=== PATIENT | male | born 1945 | race Caucasian/White ===

== ENCOUNTER → 2020-10-21 09:56 | Outpatient (REF) | payer MEDICARE, SELFPAY ==
--- NOTE | 2020-10-21 | NM_ITS ---
EXAMINATION: NM BONE SCAN OF THE WHOLE BODY CLINICAL INFORMATION: Prostate cancer. COMPARISON: Bone scan 03/22/2020 and 07/28/2019. TECHNIQUE: Multiple gamma scintillation camera images of the whole body were performed 3 hours following the intravenous administration of 28 mCi Tc-99m MDP. FINDINGS: In the head, no significant abnormality seen. In the thoracic cage and upper extremities, there is mild increased activity seen in bilateral AC joints, glenohumeral joints and right sternoclavicular joints likely related to arthritic changes. Mild faint focal activity seen in the left posterior 7th through 10th ribs similar to previous study, likely old fractures. Also visualized are mild faint areas of focal activity in the left anterior 7th through 9th ribs likely old healed fracture. In the spine, no significant abnormality seen. In the pelvis, there is mild focal increased activity in the right anterior superior iliac spine which has decreased comparing to previous study. There is nonspecific activity below the left pelvis which could be artifact from urine extravasation or isotope in the diaper. This was not seen on last bone scan but seen on earlier bone scan from 07/28/2019 In the lower extremities, no abnormal activity seen. No other definite bony abnormalities are noted. The urinary bladder and faint visualization of both kidneys are noted. GA/GA bone scan whole body IMPRESSION: There is mild increased activity at the sternoclavicular and bilateral hip joints and some of the ribs as described above stable compared to previous study, 03/22/2020. The rib lesions are likely old fractures. Mild activity seen in the right anterior iliac spine but decreased since the last study. This was reported metastatic lesion on the previous exam. There are no new areas of isotope activity to suspect any metastatic lesions.
== END ==
LOC: HO.NUCMED 09:56
PROVIDERS: Visit Provider Internal Medicine Medical Oncology
DX: C61 Malignant neoplasm of prostate (principal)
CPT/HCPCS: 78306; A9503

== ENCOUNTER → 2020-12-08 09:24 | Outpatient (BNVA) | payer MEDICARE, SELFPAY | PROVIDERS: PCP Internal Medicine; Visit Provider Urology | DX: C61 Malignant neoplasm of prostate (principal); N39.41 Urge incontinence | CPT/HCPCS: 96402; 99212; J9217 ==

== ENCOUNTER → 2021-06-01 08:31 | Outpatient (BNVA) | payer MEDICARE, SELFPAY | PROVIDERS: PCP Internal Medicine; Visit Provider Urology | DX: M85.80 Other specified disorders of bone density and structure, unspecified site (principal); C61 Malignant neoplasm of prostate; R97.21 Rising PSA following treatment for malignant neoplasm of prostate | CPT/HCPCS: 96402; 99212; J9217 ==

== ENCOUNTER → 2021-10-23 09:52 | Outpatient (REF) | payer MEDICARE, SELFPAY ==
--- NOTE | ~2021-10-23 | NM_ITS ---
EXAMINATION: NM BONE SCAN OF THE WHOLE BODY CLINICAL INFORMATION: Prostate cancer. History of prostatectomy. COMPARISON: Bone scan 10/21/2020. TECHNIQUE: Multiple gamma scintillation camera images of the whole body were performed 3 hours following the intravenous administration of 26 mCi Tc-99m MDP. FINDINGS: In the head, no abnormal activity seen. In the thoracic cage and upper extremities, mild increased activity seen in right acromion process and bilateral glenohumeral joints. Activity seen in the right acromion is new and intense compared to last study. No abnormal activity seen in the spine. Previously seen faint bone marrow activity left 7th, 8th and 9th posterior ribs is again visualized consistent with old fractures. There is mild right sternoclavicular joint activity also. In the pelvis, mild increased activity seen in the right anterior superior iliac spine improved since previous study. No additional areas of metabolic activity. In the lower extremities, no abnormal metabolic activity seen. No other definite bony abnormalities are noted. The urinary bladder and faint visualization of both kidneys are noted. NM/IA bone scan whole body IMPRESSION: Moderate intense activity seen in the right acromion process new since the previous study. There are mild arthritic changes right sternoclavicular joint and bilateral AC joints. Mild increased activity seen in the posterior left lower ribs. Mild increase activity in the right anterior superior iliac spine has slightly decreased since the last study. There are no new areas of abnormal activity.
== END ==
LOC: HO.NUCMED 09:52
PROVIDERS: PCP Internal Medicine; Visit Provider Internal Medicine Medical Oncology
DX: C61 Malignant neoplasm of prostate (principal)
CPT/HCPCS: 78306; A9503

== ENCOUNTER → 2021-11-29 09:36 | Outpatient (BNVA) | payer MEDICARE, SELFPAY | PROVIDERS: PCP Internal Medicine; Visit Provider Urology | DX: R97.21 Rising PSA following treatment for malignant neoplasm of prostate (principal); C61 Malignant neoplasm of prostate; M85.80 Other specified disorders of bone density and structure, unspecified site | CPT/HCPCS: 96402; 99212; J9217 ==

== ENCOUNTER 2022-02-28 15:42 | Outpatient (REF) | payer MEDICARE, SELFPAY ==
--- NOTE | ~2022-02-28 | XR_ITS ---
EXAMINATION: XR LUMBOSACRAL SPINE WITH OBLIQUES CLINICAL INFORMATION: Lumbar strain COMPARISON: None TECHNIQUE: AP, both oblique, and lateral views of the lumbar spine. Lateral view of the lumbosacral junction. FINDINGS: Postoperative changes observed in the pelvis. Atherosclerotic changes of the abdominal aorta and common iliac arteries noted. No appreciable spondylolysis. There is a wedge compression deformity at L4. Eccentric degenerative disc space narrowing noted L5-S1. Facet arthrosis observed. XR/XR lumbar spine 4V min IMPRESSION: Wedge compression deformity at L4. Finding could be acute however the age is not completely certain. If there is further clinical concern, MR examination of lumbar spine may be helpful toward further clarification. Mild eccentric degenerative disc space narrowing L5-S1.
== END 2022-02-28 15:43 | disposition home or self-care (01) ==
LOC: HO.HMGCX 15:42
PROVIDERS: PCP Internal Medicine; Visit Provider Physician Assistant
DX: S39.012A Strain of muscle, fascia and tendon of lower back, initial encounter (principal); X58.XXXA Exposure to other specified factors, initial encounter; Y93.9 Activity, unspecified; Y92.9 Unspecified place or not applicable; Y99.9 Unspecified external cause status
CPT/HCPCS: 72110

== ENCOUNTER → 2022-04-17 10:57 | Outpatient (REF) | payer MEDICARE, SELFPAY ==
--- NOTE | ~2022-04-17 | NM_ITS ---
EXAMINATION: NM BONE SCAN OF THE WHOLE BODY CLINICAL INFORMATION: Prostate cancer. History of prostatectomy. COMPARISON: Whole-body bone scan done on 10/23/2021. TECHNIQUE: Multiple gamma scintillation camera images of the whole body were performed 3.25 hours following the intravenous administration of 25 mCi Tc-99m MDP. FINDINGS: In the head, no focal abnormal increased activity is present. In the thoracic cage and upper extremities, previously documented asymmetric abnormal increased radiotracer activity involving the distal half of the right clavicle appears improved. Currently bilateral near symmetric increased radiotracer activities are present around both shoulder. Interval development of focal abnormal increased radiotracer activities are noted along the costovertebral junctions of the right-sided ninth and 10th ribs. In the spine, interval development of moderately intense abnormal linear increased radiotracer activity is present at L4 vertebral body, highly suspicious for metastatic disease. No other additional site of disease is identified. In the pelvis, asymmetric abnormal increased radiotracer activity is present involving the right anterior iliac crest, shows increased radiotracer activity as compared to the prior study dated 10/23/2021. Evidence of urinary contamination is noted around the penile urethra. In the lower extremities, no focal suspicious lesion. No other definite bony abnormalities are noted. The urinary bladder and faint visualization of both kidneys are noted. NM/NM bone scan whole body IMPRESSION: 1. Interval development of moderately intense linear abnormal increased radiotracer activity is noted at L4 vertebral body, highly suspicious for metastatic disease, new since 10/23/2021. 2. Interval development of focal abnormal increased radiotracer activities are also noted along the costovertebral junctions of the right-sided ninth and 10th ribs, may represent posttraumatic changes. 3. Previously documented abnormal increased radiotracer activity involving the right iliac crest persists, shows increased radiotracer activity, when compared to prior study dated 10/23/2021. 4. Abnormal linear increased radiotracer activity involving the outer half of the right clavicle appears improved since the prior study dated 10/23/2021. 5. No other significant interval change. 6. Follow-up F-18 PSMA/Gallium-[address] scan, may be considered for further full detail evaluation, if clinically appropriate.
== END ==
LOC: HO.NUCMED 10:57
PROVIDERS: PCP Internal Medicine; Visit Provider Internal Medicine Medical Oncology
DX: C61 Malignant neoplasm of prostate (principal)
CPT/HCPCS: 78306; A9503

== ENCOUNTER → 2022-06-07 10:04 | Outpatient (BNVA) | payer MEDICARE, SELFPAY | PROVIDERS: PCP Internal Medicine; Visit Provider Urology | DX: C61 Malignant neoplasm of prostate (principal); C79.51 Secondary malignant neoplasm of bone; R97.21 Rising PSA following treatment for malignant neoplasm of prostate; M85.80 Other specified disorders of bone density and structure, unspecified site | CPT/HCPCS: 96372; 96402; 99212; J0897; J9217 ==

== ENCOUNTER → 2022-11-19 10:53 | Outpatient (REF) | payer MEDICARE, SELFPAY ==
--- NOTE | ~2022-11-19 | NM_ITS ---
EXAMINATION: NM BONE SCAN OF THE WHOLE BODY CLINICAL INFORMATION: Prostate cancer, elevated PSA. COMPARISON: Several prior bone scans are available for comparison, the most recent dated 04/17/2022. No recent radiographs are available for comparison. TECHNIQUE: Multiple gamma scintillation camera images of the whole body were performed 2.5 hours following the intravenous administration of 27 mCi Tc-99m MDP. FINDINGS: In the head, no definite abnormalities are present. In the thoracic cage and upper extremities, there is mildly increased activity in the left acromioclavicular joint. There is a small mild focus of increased activity in the anterolateral aspect of the right second rib and a few scattered left-sided rib lesions are present. There is a focus of mildly increased activity in the mid lateral aspect of the right scapula. In the spine, there is minimally increased activity in the left side of L4. In the pelvis, there is intense abnormally increased activity which is somewhat heterogeneous in the right iliac wing, involving almost the entirety of this bone. There is an additional small focus of moderately increased activity present in the left anterior iliac crest. Some mild abnormality inferior to the prominent iliac bone abnormality in the right hemipelvis is present involving the acetabulum and right ischium, but this is much less intense than the iliac bone abnormalities. In the lower extremities, there is a small mild focus of increased activity in the lateral proximal aspect of the right foot. No other definite bony abnormalities are noted. The urinary bladder and faint visualization of both kidneys are noted. A duplicated right renal collecting system is present. Compared to the 04/17/2022 prior bone scan abnormalities in the right iliac bone are much more intense and more extensive on the current study in the anterior left iliac bone abnormality is new. All of the rib abnormalities in the right scapular abnormality are new. Abnormalities at the costovertebral junctions of T9 and T10 on 04/17/2022 have resolved and the intensity of activity in the L4 vertebra has decreased. Radiographs of the lumbar spine dated 02/28/2022, prior to the prior bone scan showed a compression deformity at L4. NM/NM bone scan whole body IMPRESSION: 1. Metastatic tumor involvement of bone with extensive abnormalities present in the right hemipelvis as well as new abnormalities in the left iliac bone and right scapula. 2. Multiple rib abnormalities are present, particularly on the left and while metastatic disease at these sites cannot be entirely ruled out because adjacent regions of adjacent ribs are involved these may represent healing rib fractures. An abnormality in the right second rib is more suspicious for a metastasis, however. These could be further characterized with plain radiographs of the ribs, if clinically indicated.
== END ==
LOC: HO.NUCMED 10:53
PROVIDERS: Visit Provider Internal Medicine Medical Oncology
DX: C61 Malignant neoplasm of prostate (principal)
CPT/HCPCS: 78306; A9503

== ENCOUNTER → 2022-12-11 11:24 | Outpatient (BNVA) | payer MEDICARE, SELFPAY | PROVIDERS: PCP Internal Medicine; Visit Provider Urology | DX: C61 Malignant neoplasm of prostate (principal); C79.51 Secondary malignant neoplasm of bone; R97.21 Rising PSA following treatment for malignant neoplasm of prostate; M85.80 Other specified disorders of bone density and structure, unspecified site; Z79.620 Long term (current) use of immunosuppressive biologic | CPT/HCPCS: 96372; 96402; 99212; J0897; J9217 ==

== ENCOUNTER → 2023-02-26 10:34 | Outpatient (REF) | payer MEDICARE, SELFPAY ==
--- NOTE | ~2023-02-26 | NM_ITS ---
EXAMINATION: NM BONE SCAN OF THE WHOLE BODY CLINICAL INFORMATION: Prostate cancer. COMPARISON: The previous bone scan dated 11/19/2022 is available for comparison. TECHNIQUE: Multiple gamma scintillation camera images of the whole body were performed 3.25 hours following the intravenous administration of 25 mCi Tc-99m MDP. FINDINGS: In the head, no significant abnormalities are present. In the thoracic cage and upper extremities, multiple foci of mildly to moderately increased activity are present in the ribs. There is also focus of moderately increased activity in the mid lateral aspect of the right scapula and in the inferior aspect of the sternum. Although multiple rib abnormalities are present, the most intense is in the anterolateral aspect of the left fifth rib. In the spine, several foci of mildly to moderately increased activity are present in the spine, most prominently in the right side of T12, the inferior endplate of L2 in the midline and in the right side of L5 extending into the right posterior elements. In the pelvis, there is intense abnormally increased activity present throughout the right iliac bone extending into the acetabulum and the superior aspect of the right ischium. Additional abnormalities which are intense are present in the left anterior iliac crest as well as mild abnormalities in the superior and inferior aspects of the left acetabulum. In the lower extremities, there is subtle diffusely increased activity in the proximal two thirds of both femurs which is fairly homogeneous but much less intense than the other abnormalities described above. No other definite bony abnormalities are noted. The urinary bladder and faint visualization of both kidneys are noted. Since the prior bone scan dated 11/19/2022, multiple new lesions are present in the ribs and spine and a few mild abnormalities present on the previous study have all increased in intensity, particularly in the pelvis and right scapula. NM/NM bone scan whole body IMPRESSION: Metastatic tumor involvement of bone with a significant progression in the bone scan appearance since 11/19/2022.
== END ==
LOC: HO.NUCMED 10:34
PROVIDERS: Visit Provider Internal Medicine Medical Oncology
DX: C61 Malignant neoplasm of prostate (principal)
CPT/HCPCS: 78306; A9503

== ENCOUNTER 2023-03-03 12:33 | Inpatient (IN) | payer MEDICARE, SELFPAY ==
--- NOTE | ~2023-03-03 | MR_ITS ---
EXAMINATION: MR LUMBAR SPINE WITHOUT AND WITH CONTRAST CLINICAL INFORMATION: Bilateral leg weakness. Prostate cancer. COMPARISON: Bone scan dated 02/26/2023 was reviewed. Lumbar spine radiographs dated 02/28/2022 was reviewed. TECHNIQUE: MRI of the lumbar spine was obtained using routine sequences with and without contrast. Intravenous contrast: Magnevist 7.5 mL FINDINGS: Spinal alignment is anatomic in the sagittal projection. The superior endplate of the L4 vertebral body is moderately depressed. This superior endplate deformity was present on the 02/28/2022 lumbar spine radiographs but appears to have progressed slightly. Mild increased T2 signal within the posterior aspect of the superior endplate suggesting more acute component to this endplate deformity. There is no retropulsion of bone into the spinal canal. Remaining lumbar vertebral bodies demonstrate preserved stature. There is mild compression deformity of the anterior aspect of the inferior endplate of the T12 vertebral body. There are enhancing metastasis within the T11 vertebral body, T12 vertebral body, L1 vertebral body, L2 vertebral body, L3 vertebral body, and L5 vertebral body. There are enhancing metastasis within the posterior elements at the L5 level on the right. There are enhancing metastasis throughout the sacrum. The visualized spinal cord is normal in caliber and signal intensity. The cauda equina nerve roots are intrinsically normal in appearance. The conus medullaris is unremarkable. The paraspinal soft tissue is grossly normal in appearance. There are multiple right renal cysts. The urinary bladder is distended. Evaluation of the individual disc space levels is as follows: T12-L1: There is no disc herniation. The spinal canal and neural foramina are patent. L1-L2: There is no disc herniation. The spinal canal and neural foramina are widely patent. There is mild facet arthropathy. L2-L3: There is a shallow circumferential disc bulge. There is mild facet arthropathy. There is no spinal canal or foraminal stenosis. L3-L4: There is a moderate size circumferential disc herniation which is slightly eccentric towards the right side. There is facet arthropathy. Disc herniation results in flattening of the ventral thecal sac and narrowing of the subarticular recesses, greater on the right. The spinal canal remains patent. There is moderate narrowing of the right neural foramen without nerve root impingement and mild narrowing of the left neural foramen. L4-L5: There is a shallow circumferential disc bulge. There is facet arthropathy. There is no spinal canal or foraminal stenosis. L5-S1: There is a shallow circumferential disc bulge. There is facet arthropathy. No spinal canal stenosis. The right neural foramen is mildly narrowed. There is minimal narrowing of the left neural foramen. There is no nerve root impingement. MR/MR lumbar spine wo/w con IMPRESSION: - The superior endplate of the L4 vertebral body is moderately depressed. This superior endplate deformity was present on the 02/28/2022 lumbar spine radiographs but appears to have progressed slightly. Mild increased T2 signal within the posterior aspect of the superior endplate suggesting more acute component to this endplate deformity. There is no retropulsion of bone into the spinal canal. - There is mild compression deformity of the anterior aspect of the inferior endplate of the T12 vertebral body. - There are enhancing metastasis within the T11 vertebral body, T12 vertebral body, L1 vertebral body, L2 vertebral body, L3 vertebral body, and L5 vertebral body. There are enhancing metastasis within the posterior elements at the L5 level on the right. There are enhancing metastasis throughout the sacrum. -There is mild to moderate lumbar spondylosis. There is no compromise of the spinal canal. There is mild to moderate multilevel foraminal narrowing without nerve root impingement.
--- NOTE | ~2023-03-03 | CT_ITS ---
EXAMINATION: CT ABDOMEN AND PELVIS WITHOUT CONTRAST CLINICAL INFORMATION: Gram-negative bacteremia. Question source. COMPARISON: Previous CT of the abdomen from 2007 and ultrasound from 2019. Bone scan, pelvis and lumbar spine x-ray and lumbar spine MRI February 2023 TECHNIQUE: Multidetector volumetric imaging was performed from the superior aspect of the liver through the pubic symphysis. Sagittal and coronal reformatted images were obtained on the technologist's workstation. This CT examination was performed using dose optimization techniques as appropriate, variously including the following: *Automated exposure control *Adjustment of mA and/or kV according to patient size (this includes techniques or standardized protocols for targeted exams where dose is matched to indication/reason for exam; i.e. extremities or head) *Use of iterative reconstruction technique DLP: 532 mGy-cm FINDINGS: LUNG BASES: Increased peripheral reticular markings suggestive of interstitial lung disease. Upper normal heart size. Coronary artery calcification. Trace pericardial fluid or thickening. LIVER, GALLBLADDER, AND BILIARY TREE: The liver is upper normal in size right lobe measuring 18 cm. There is a subcentimeter low-attenuation lesion in the peripheral lateral segment of the left lobe probably representing a cyst axial image 25 series 3. No other focal liver lesion. The gallbladder is unremarkable with no evidence of radiopaque gallstones, gallbladder wall thickening, or obvious pericholecystic inflammatory changes. PANCREAS: Unremarkable. SPLEEN: Upper normal-size spleen measuring 12.6 cm. ADRENAL GLANDS: Unremarkable. KIDNEYS AND URETERS: Duplicated bilateral renal collecting systems. Left renal cortical thinning or scarring. Small bilateral renal stones. 1.5 cm low-attenuation lesion in the lower pole of the right kidney probably representing a cyst. No hydronephrosis, ureteral dilatation or ureteral stone. BLADDER: Penile implant and right pelvic reservoir. This causes mass effect on the bladder. Scott catheter in the bladder. GASTROINTESTINAL TRACT: There is large amount of stool in the colon suggestive of constipation. There is diverticulosis of the colon. No evidence of diverticulitis. Small and large bowel is otherwise normal. The appendix is normal. The stomach is normal. ABDOMINAL WALL: No significant hernia is appreciated. LYMPH NODES: Surgical clips in the pelvis suggestive of previous lymph node dissection. Small retroperitoneal lymph nodes in the abdomen. No enlarged lymph nodes. No ascites. VASCULAR: Severe atherosclerotic disease. No aneurysm. PELVIC VISCERA: The prostate gland has been removed. OSSEOUS STRUCTURES: Increased sclerosis the iliac bones, right greater than left suggestive of metastatic disease. Heterogeneous attenuation with areas of lucency and increased sclerosis in the right acetabulum also suggestive of metastatic disease. Old left rib fractures. Recent appearing L4 vertebral body compression fracture. Mild old compression fractures versus Schmorl's nodes in the superior endplate of the T11 inferior endplate of the T12 vertebral bodies. CT/CT abdomen pelvis wo IV con IMPRESSION: Constipation. Severe diverticulosis. No evidence of diverticulitis. Duplicated bilateral renal collecting systems. Small bilateral renal stones. Cortical thinning or scarring of the left kidney. Post prostatectomy. Penile implant. Metastatic disease to the bones. Fleischner guidelines were followed.
--- NOTE | ~2023-03-03 | XR_ITS ---
EXAMINATION: XR PELVIS CLINICAL INFORMATION: Evaluate penile implant for MRI. COMPARISON: Lumbar spine x-rays of 02/28/2022. Selected images of the CT abdomen and pelvis of 02/18/2007. TECHNIQUE: AP view of the pelvis. FINDINGS: Multiple surgical clips in the pelvis bilaterally are redemonstrated. Penile implants are in place with a small metallic likely connecting device noted projecting over the right side of the penis/scrotum. No evidence of acute osseous abnormality. No definite evidence of suspicious lytic or blastic lesion in the visualized osseous structures. Symphysis pubis is intact. Limited evaluation of the visualized sacroiliac joints is unremarkable. Bilateral hip joints are intact. Mild degenerative changes at the hip joints. As per radiologic technologist she found the report that stated it is a AMS 3 piece inflatable implant. After discussion with the radiologic technologist a decision was made to proceed with the requested lumbar spine MRI examination after detailed discussion with the patient. Patient was explained to notify the radiologic technologist immediately if he feels heat sensation or discomfort in the region.
[2023-03-03 12:45] VITALS: BP 142/79; BP 148/90; PULSE 100; PULSE 99; RESP 20; TEMP 36.6; O2SAT 97; O2SAT 99; BMI 22.2
[2023-03-03 13:52] LABS: MANUAL DIFF FLAG NO
[2023-03-03 13:53] LABS: Basophils Absolute Auto 0.1 X10*3/uL (0.0-0.2); Basophils Percent Auto 0.7 % (0-2); Eosinophils Absolute Auto 0.3 X10*3/uL (0.0-0.4); Hematocrit 33.7 % (42.0-52.0); Hemoglobin 11.3 g/dl (14.0-18.0); Imm Gran Abs Auto 0.11 X10*3/uL (0.00-0.03); Imm Gran Pct Auto 1.5 % (0.0-0.4); Lymphocytes Absolute Auto 0.6 X10*3/uL (1.2-4.9); Lymphocytes Percent Auto 8.1 % (20-40); Mean Corpuscular HGB Conc 33.5 g/dl (31.0-36.0); Mean Corpuscular Hemoglobin 30.7 pg (27.0-33.0); Mean Corpuscular Volume 91.6 fL (80.0-98.0); Mean Platelet Volume 8.9 fL (9.4-12.4); Monocytes Absolute Auto 0.3 X10*3/uL (0.1-1.2); Monocytes Percent Auto 4.4 % (2-11); Neutrophils Absolute Auto 6.1 x10*3/uL (2.0-8.3); Neutrophils Percent Auto 81.3 % (45-73); Platelet Count 197 X10*3/uL (160-400); Red Blood Count 3.68 X10*6/uL (4.60-5.80); Red Cell Distribution Width 18.2 % (11.0-16.0); White Blood Count 7.5 X10*3/uL (4.8-10.8)
[2023-03-03 13:58] LABS: INTERNATIONAL NORM RATIO 1.4 (0.9-1.1); Prothrombin Time 15.8 SEC (10.0-13.1)
[2023-03-03 14:07] LABS: Alanine Aminotransferase 80 U/L (0-40); Albumin Level 3.3 g/dL (3.5-5.0); Alkaline Phosphatase 178 U/L (39-117); Anion Gap 12 (12-20); Aspartate Amino Transferase 118 U/L (5-37); Bilirubin Total 1.9 mg/dL (0.0-1.0); Blood Urea Nitrogen 23 mg/dL (9-16); Calcium 9.5 mg/dL (8.4-10.2); Carbon Dioxide 25 mmol/L (22-29); Chloride 107 mmol/L (96-108); Creatinine Clr Calc Pharmacy 38.6; Estimated Glomerular Filt Rate 39; Glucose Random 287 mg/dL (60-115); Potassium 3.8 mmol/L (3.3-5.1); Sodium 140 mmol/L (135-145); Total Protein 5.8 g/dL (6.5-8.0)
[2023-03-03 14:48] LABS: Appearance Urine Cloudy; Color Urine Yellow; Glucose Urine UA 500 mg/dL (Negative); Leukocyte Esterase Urine Trace (Negative); Nitrite Urine Positive (Negative); PH 5.5 (5.0-9.0); Specific Gravity - Urine 1.015 (1.005-1.025); UMIC TRIGGER UACC YES; Urine Blood Large (3+) (Negative); Urine Ketones Negative (Negative); Urine Protein 100 (2+) mg/dL (Neg-Trace)
[2023-03-03 14:55] VITALS: BP 128/74; PULSE 109; RESP 20; TEMP 36.6; O2SAT 96
[2023-03-03 15:02] LABS: Bacteria Urine 1+ (None Seen); Hyaline Casts Urine 0-2 /LPF (0-2); RBC Urine >20 /HPF (0-2); Squamous Epithelial Cell Urine 0-2 /HPF (0-2); UACC Culture Trigger YES; WBC Urine 0-5 /HPF (0-5)
[2023-03-03] MEDS: 0.9 % Sodium Chloride 500 ML 999 ML IV (15:02)
[2023-03-03 15:14] LABS: Glucose, Whole Blood 249 mg/dL (60-115)
--- NOTE | 2023-03-03 15:22 | ED_ITS ---
HPI - Weakness General Chief complaint: Weakness Stated complaint: Increased diff ambulating per EMS Time Seen by Provider: 03/03/23 12:49 Source: patient and family () Mode of arrival: EMS History of Present Illness HPI Narrative: This is a 77-year-old male who presents via EMS for progressive weakness in bilateral lower extremities to the point that this morning he had slid himself down the stairs, his states that typically at that point she is able to get him standing up and then put him in a dining room chair where they push him around. Patient states that over the past few days he has been unable to push himself up from the toilet and he has been unable to stand up from his chair. states that she called EMS and that patient has had a recent bone scan. Patient is currently being followed by Dr. Desouza and has known prostate cancer with metastasis to the bone. Related Data Home Medications Medication Instructions Recorded Confirmed apixaban 5 mg tablet 5 mg PO BID 10/07/20 digoxin 250 mcg (0.25 mg) tablet 250 mcg PO DAILY 10/07/20 enzalutamide 40 mg capsule 160 mg PO DAILY 10/07/20 flu vacc [id number] 6mos up(PF) 60 ml IM 10/07/20 mcg(15 mcgx4)/0.5 mL IM syringe fluticasone propionate 50 spray intranasal 10/07/20 mcg/actuation nasal spray,suspension lisinopril 2.5 mg tablet 2.5 mg PO DAILY 10/07/20 metoprolol tartrate 50 mg tablet mg PO BID 10/07/20 rosuvastatin 40 mg tablet 40 mg PO DAILY 10/07/20 sitagliptin phosphate 25 mg tablet 25 mg PO DAILY 10/07/20 furosemide 40 mg tablet 40 mg PO DAILY 12/08/20 ketorolac 0.5 % eye drops drp ophthalmic (eye) 12/08/20 blood sugar diagnostic (OneTouch #10 ea 06/01/21 Verio test strips) fenofibrate micronized 67 mg 67 mg PO DAILY 06/01/21 capsule apalutamide 60 mg tablet (Erleada) 240 mg PO DAILY 06/07/22 digoxin 125 mcg (0.125 mg) tablet 125 mcg PO DAILY 06/07/22 bicalutamide 50 mg tablet 50 mg PO DAILY 03/21/23 Previous Rx's Medication Instructions Recorded imipramine HCl 10 mg tablet 10 mg PO BID 90 days #180 tabs 12/06/20 cyclobenzaprine 10 mg tablet 10 mg PO BEDTIME PRN muscle spasm 02/28/22 #10 tabs lidocaine 5 % topical patch 1 patch topical DAILY #30 ea 02/28/22 (Lidoderm) finasteride 5 mg tablet 5 mg PO DAILY 90 days #90 tabs 07/26/22 mirabegron 25 mg tablet,extended 25 mg PO DAILY 30 days #30 tabs 12/11/22 release 24 hr Allergies Allergy/AdvReac Type Severity Reaction Status Date / Time bee pollen [BEE STINGS] Allergy Severe ANAPHYLAXIS Verified 12/11/22 11:40 leuprolide [From Lupron] AdvReac Unknown REACTION Verified 12/11/22 11:40 TO BRAND NAME LUPRON, OTHER BRANDS OK bee stings Allergy Unknown anaphylaxis Uncoded 12/11/22 11:40 Review of Systems Review of Systems: Pertinent positives and negatives as stated in [facility] Past Medical History Source: nursing notes reviewed Medical History Elevated PSA Prostate cancer Urgency incontinence Surgical History History of cystoscopy History of prostatectomy Social History Social History Smoked in Last 30 Days: No Use of substances other than those prescribed or required for medical reasons: No Advance Directives: No Advance Directives Information Provided: Yes Physical Exam Vital Signs: Vital Signs: Last Vital Signs Temp 97.8 F 03/03/23 14:55 Pulse 109 H 03/03/23 14:55 Resp 20 03/03/23 14:55 BP 128/74 03/03/23 14:55 Pulse Ox 96 03/03/23 14:55 O2 Del Method Room Air 03/03/23 14:55 BMI result Body Mass Index 22.2 VITAL SIGNS: Reviewed. GENERAL: Chronically ill, cachectic, in no acute distress. HEAD: Normocephalic/atraumatic EYES: PERRLA, EOMI EARS: Ext canals without abnormality NOSE: Nares patent bilateral OROPHARYNX: no oral lesions noted, posterior pharynx clear NECK: Supple, no adenopathy LUNGS: Normal breath sounds. No adventitious sounds or accessory muscle use. SpO2<96> CARDIOVASCULAR: Regular rate and rhythm without noted murmurs, no JVD or lower extremity edema. ABDOMEN: Soft, non-tender, non-distended with bowel sounds. MUSCULOSKELETAL: No tenderness, deformities, or effusions noted on gross inspection. EXTREMITIES: No cyanosis, clubbing or edema. SKIN: Inspection of the skin reveals no rashes NEUROLOGIC: Alert and oriented x 4. Strength and sensation to light touch were grossly intact x 4, but on evaluation patient is able to plantar/dorsiflex again st resistance, however he is significantly weak on hip flexion bilaterally, right is somewhat weaker than the left. Medications Administered Discontinued Medications Generic Name Dose Route Start Last Admin Trade Name Freq PRN Reason Stop Dose Admin Sodium Chloride 500 mls @ 999 mls/hr 03/03/23 14:45 03/03/23 15:02 Ns IV 03/03/23 15:15 999 mls/hr .Q31M ALEJANDRA Administration Ceftriaxone Sodium 1 gm/ 50 mls @ 100 mls/hr 03/03/23 15:06 03/03/23 15:24 Sodium Chloride IV 03/03/23 15:35 100 mls/hr ONCE ONE Administration Medical Decision Making Medical Decision Making [facility] Narrative: 1307: This is a 77-year-old male who on review of his history in combination with most recent bone scan has significant metastatic disease to the bone bilateral iliac crests, bilateral proximal femurs, L-spine. This is consistent with patient's inability to significantly hip flex. He has good plantar/dorsal flexion. 1506: I suspect infection, lactic acid/blood cultures sent, IV fluids provided, antibiotics provided. Patient on review of all investigations also is noted to have an LAURA which is felt to be a combination of poor intake and possible obstructive uropathy. I have discussed with patient at bedside regarding the results of the bone scan and the likelihood that his progressive inability to bear weight is secondary to extensive involvement of bilateral femurs, bilateral iliac crests as well as T12/L2/L5 1545: I am consulting with Dr. Cid and have discussed with the inpatient hospitalist. Differential Diagnosis Please see the discussion above Consult Healthcare Provider Management of the patient was discussed with: Hospitalist and Silhouette Artist Please see the discussion above Lab Data Please see the discussion above 03/03/23 13:48 03/03/23 13:48 Labs: Lab Results 03/03/23 03/03/23 03/03/23 Range/Units 13:48 13:48 13:48 WBC 7.5 (4.8-10.8) X10*3/uL RBC 3.68 L (4.60-5.80) X10*6/uL Hgb 11.3 L (14.0-18.0) g/dl Hct 33.7 L (42.0-52.0) % MCV 91.6 (80.0-98.0) fL MCH 30.7 (27.0-33.0) pg MCHC 33.5 (31.0-36.0) g/dl RDW 18.2 H (11.0-16.0) % Plt Count 197 (160-400) X10*3/uL MPV 8.9 L (9.4-12.4) fL Immature Gran % (Auto) 1.5 H (0.0-0.4) % Neut % (Auto) 81.3 H (45-73) % Lymph % (Auto) 8.1 L (20-40) % [place] % (Auto) 4.4 (2-11) % Eos % (Auto) 4.0 (0-4) % Baso % (Auto) 0.7 (0-2) % Lymph # (Auto) 0.6 L (1.2-4.9) X10*3/uL [place] # (Auto) 0.3 (0.1-1.2) X10*3/uL Eos # (Auto) 0.3 (0.0-0.4) X10*3/uL Baso # (Auto) 0.1 (0.0-0.2) X10*3/uL Abs Immat Gran (auto) 0.11 H (0.00-0.03) X10*3/uL Absolute Neuts (auto) 6.1 (2.0-8.3) x10*3/uL Absolute Nucleated RBC 0.000 (0.0-0.012) X10*3/uL Nucleated RBC % (auto) 0.0 (0.0-0.2) /100WBC PT 15.8 H (10.0-13.1) SEC INR 1.4 H (0.9-1.1) Sodium 140 (135-145) mmol/L Potassium 3.8 (3.3-5.1) mmol/L Chloride 107 (96-108) mmol/L Carbon Dioxide 25 (22-29) mmol/L Anion Gap 12 (12-20) BUN 23 H (9-16) mg/dL Creatinine 1.70 H (0.5-1.4) mg/dL Estim Creat Clear Calc 38.6 Estimated GFR 39 POC Glucose (60-115) mg/dL Random Glucose 287 H (60-115) mg/dL Calcium 9.5 (8.4-10.2) mg/dL Total Bilirubin 1.9 H (0.0-1.0) mg/dL AST 118 H (5-37) U/L ALT 80 H (0-40) U/L Alkaline Phosphatase 178 H (39-117) U/L Total Protein 5.8 L (6.5-8.0) g/dL Albumin 3.3 L (3.5-5.0) g/dL Urine Color Urine Appearance Urine pH (5.0-9.0) Ur Specific [place] (1.005-1.025) Urine Protein (Neg-Trace) mg/dL Urine Glucose (UA) (Negative) mg/dL Urine Ketones (Negative) mg/dL Urine Blood (Negative) Urine Nitrite (Negative) Ur Leukocyte Esterase (Negative) Urine RBC (0-2) /HPF Urine WBC (0-5) /HPF Ur Squamous Epith Cells (0-2) /HPF Urine Bacteria (None Seen) Hyaline Casts (0-2) /LPF 03/03/23 03/03/23 Range/Units 14:38 15:09 WBC (4.8-10.8) X10*3/uL RBC (4.60-5.80) X10*6/uL Hgb (14.0-18.0) g/dl Hct (42.0-52.0) % MCV (80.0-98.0) fL MCH (27.0-33.0) pg MCHC (31.0-36.0) g/dl RDW (11.0-16.0) % Plt Count (160-400) X10*3/uL MPV (9.4-12.4) fL Immature Gran % (Auto) (0.0-0.4) % Neut % (Auto) (45-73) % Lymph % (Auto) (20-40) % [place] % (Auto) (2-11) % Eos % (Auto) (0-4) % Baso % (Auto) (0-2) % Lymph # (Auto) (1.2-4.9) X10*3/uL [place] # (Auto) (0.1-1.2) X10*3/uL Eos # (Auto) (0.0-0.4) X10*3/uL Baso # (Auto) (0.0-0.2) X10*3/uL Abs Immat Gran (auto) (0.00-0.03) X10*3/uL Absolute Neuts (auto) (2.0-8.3) x10*3/uL Absolute Nucleated RBC (0.0-0.012) X10*3/uL Nucleated RBC % (auto) (0.0-0.2) /100WBC PT (10.0-13.1) SEC INR (0.9-1.1) Sodium (135-145) mmol/L Potassium (3.3-5.1) mmol/L Chloride (96-108) mmol/L Carbon Dioxide (22-29) mmol/L Anion Gap (12-20) BUN (9-16) mg/dL Creatinine (0.5-1.4) mg/dL Estim Creat Clear Calc Estimated GFR POC Glucose 249 H (60-115) mg/dL Random Glucose (60-115) mg/dL Calcium (8.4-10.2) mg/dL Total Bilirubin (0.0-1.0) mg/dL AST (5-37) U/L ALT (0-40) U/L Alkaline Phosphatase (39-117) U/L Total Protein (6.5-8.0) g/dL Albumin (3.5-5.0) g/dL Urine Color Yellow Urine Appearance Cloudy Urine pH 5.5 (5.0-9.0) Ur Specific [place] 1.015 (1.005-1.025) Urine Protein 100 (2+) H (Neg-Trace) mg/dL Urine Glucose (UA) 500 H (Negative) mg/dL Urine Ketones Negative (Negative) mg/dL Urine Blood Large (3+) H (Negative) Urine Nitrite Positive H (Negative) Ur Leukocyte Esterase Trace H (Negative) Urine RBC >20 H (0-2) /HPF Urine WBC 0-5 (0-5) /HPF Ur Squamous Epith Cells 0-2 (0-2) /HPF Urine Bacteria 1+ (None Seen) Hyaline Casts 0-2 (0-2) /LPF Radiology Impression Radiologist Impression: I reviewed bone scan from 02/26/2023 External Record Review External record reviewed: Outpatient record and Prior outpatient labs Chronic Conditions Patient?s care impacted by: Diabetes and Hypertension Discharge Plan Discharge Clinical Impression: LAURA (acute kidney injury), Prostate cancer metastatic to bone, Acute UTI, Unable to ambulate Patient Disposition: Admitted As Inpatient Prescriptions: No Action imipramine HCl 10 mg tablet 10 mg PO BID 90 Days Qty: 180 2RF finasteride 5 mg tablet 5 mg PO DAILY 90 Days Qty: 90 2RF Januvia 25 mg tablet 25 mg PO DAILY metoprolol tartrate 50 mg tablet PO BID Rx Instructions: 25mg po bid Eliquis 5 mg tablet 5 mg PO BID lisinopril 2.5 mg tablet 2.5 mg PO DAILY digoxin 250 mcg (0.25 mg) tablet 250 mcg PO DAILY Xtandi 40 mg capsule 160 mg PO DAILY rosuvastatin 40 mg tablet 40 mg PO DAILY Fluzone Quad [id number] (PF) 60 mcg (15 mcg x 4)/0.5 mL syringe IM fluticasone propionate 50 mcg/actuation spray,suspension intranasal lidocaine [Lidoderm] 5 % adhesive patch,medicated 1 patch topical DAILY Qty: 30 0RF Rx Instructions: leave on most painful area for up to 12 hrs cyclobenzaprine 10 mg tablet 10 mg PO BEDTIME PRN (Reason: muscle spasm) Qty: 10 0RF ketorolac 0.5 % drops ophthalmic (eye) furosemide 40 mg tablet 40 mg PO DAILY fenofibrate micronized 67 mg capsule 67 mg PO DAILY (DME) OneTouch Verio test strips Strip See Rx Instructions .ROUTE .MEDSUPPLY Qty: 10 Rx Instructions: As directed bicalutamide 50 mg tablet 50 mg PO DAILY mirabegron 25 mg tablet extended release 24 hr 25 mg PO DAILY 30 Days Qty: 30 1RF Erleada 60 mg tablet 240 mg PO DAILY digoxin 125 mcg (0.125 mg) tablet 125 mcg PO DAILY
[2023-03-03] MEDS: cefTRIAXone sodium 1 GM in 0.9 % Sodium Chloride 50 ML IV (15:24)
[2023-03-03 15:36] LABS: Lactic Acid 1.4 mmol/L (0.5-2.0)
--- NOTE | 2023-03-03 16:42 | PM.IMHP ---
History of Present Illness Date of Service: 03/03/23 Chief Complaint: leg weakness 77M PMH prostace cancer with bone mets, CAD, paroxysmal afib, CKD II, hld, htn, DM, presented with bilateral leg weakness. patient reports progressive bilateral lower extremity weakness over past few weeks day of presentation was worse and unable to get up from chair. also reporting some consitpation, leg numbness, increased back pain. in ED noted to have urinary retention wtih 1200cc on bladder scan, straight cath so far drained >500cc. indwelling was unable to be placed. Review of Systems Review of Systems: Yes all other systems are reviewed and are negative [facility] Medical History Elevated PSA Prostate cancer Urgency incontinence Surgical History History of cystoscopy History of prostatectomy Social History Smoked in Last 30 Days: No Use of substances other than those prescribed or required for medical reasons: No Advance Directives: No Advance Directives Information Provided: Yes Meds Allergies Allergy/AdvReac Type Severity Reaction Status Date / Time bee pollen [BEE STINGS] Allergy Severe ANAPHYLAXIS Verified 12/11/22 11:40 leuprolide [From Lupron] AdvReac Unknown REACTION Verified 12/11/22 11:40 TO BRAND NAME LUPRON, OTHER BRANDS [place] bee stings Allergy Unknown anaphylaxis Uncoded 12/11/22 11:40 Active Medications: Current Medications Dexamethasone Sodium Phosphate (Dexamethasone Sod Phosphate 4 Mg/Ml Vial) 4 mg IVPUSH Q6H ALEJANDRA Glucose (Glucose Gel 15 Gm Gel..Gram.) 15 gm PO Q15M PRN; Protocol PRN Reason: per Hypoglycemia Standing Ord. Ceftriaxone Sodium 1 gm/ (Sodium Chloride) 50 mls @ 100 mls/hr IV Q24H ALEJANDRA Sodium Chloride (Ns) 1,000 mls @ 75 mls/hr IVCONT .[id number] ALEJANDRA Dextrose (D10) 250 mls @ 750 mls/hr IV Q15M PRN; Protocol PRN Reason: per Hypoglycemia Standing Ord. Insulin Human Lispro (Insulin Lispro 100 Unit/Ml 3 Ml Vial) 0 unit SUBCUT QIDACHS ALEJANDRA; Protocol Pharmacy Consult (Consult Rx Perform Med Rec) 1 each MISCELLANE ONCE PRN PRN Reason: Consult order Home Medications Medication Instructions Recorded Confirmed Last Taken Type apixaban 5 mg tablet 5 mg PO BID 10/07/20 Unknown History enzalutamide 40 mg capsule 160 mg PO DAILY 10/07/20 Unknown History metoprolol tartrate 50 mg tablet mg PO BID 10/07/20 Unknown History rosuvastatin 40 mg tablet 40 mg PO DAILY 10/07/20 Unknown History sitagliptin phosphate 25 mg tablet 25 mg PO DAILY 10/07/20 Unknown History blood sugar diagnostic (OneTouch #10 ea 06/01/21 Unknown History Verio test strips) apalutamide 60 mg tablet (Erleada) 240 mg PO DAILY 06/07/22 Unknown History bicalutamide 50 mg tablet 50 mg PO DAILY 12/11/22 Unknown History abiraterone 500 mg tablet PO 03/03/23 Unknown History metformin 850 mg tablet 850 mg PO DAILY 03/03/23 Unknown History oxycodone 5 mg tablet 5 mg PO QID PRN Pain 03/03/23 Unknown History prednisone 5 mg tablet PO 03/03/23 Unknown History Physical Exam Vital Signs and Narrative: Vital Signs: Last Vital Signs Temp 97.8 F 03/03/23 14:55 Pulse 109 H 03/03/23 14:55 Resp 20 03/03/23 14:55 BP 128/74 03/03/23 14:55 Pulse Ox 96 03/03/23 14:55 O2 Del Method Room Air 03/03/23 14:55 BMI result Body Mass Index 22.2 Results Labs 03/03/23 13:48 03/03/23 13:48 Labs: Laboratory Results - last 24 hr 03/03/23 03/03/23 03/03/23 13:48 13:48 13:48 MCV 91.6 MCH 30.7 MCHC 33.5 RDW 18.2 H Plt Count 197 MPV 8.9 L Immature Gran % (Auto) 1.5 H Neut % (Auto) 81.3 H Lymph % (Auto) 8.1 L Rab[place] % (Auto) 4.4 Eos % (Auto) 4.0 Baso % (Auto) 0.7 Lymph # (Auto) 0.6 L [place] # (Auto) 0.3 Eos # (Auto) 0.3 Baso # (Auto) 0.1 Abs Immat Gran (auto) 0.11 H Absolute Neuts (auto) 6.1 Absolute Nucleated RBC 0.000 Nucleated RBC % (auto) 0.0 PT 15.8 H INR 1.4 H Anion Gap 12 Estim Creat Clear Calc 38.6 Estimated GFR 39 POC Glucose Random Glucose 287 H Lactic Acid Calcium 9.5 Total Bilirubin 1.9 H AST 118 H ALT 80 H Alkaline Phosphatase 178 H Total Protein 5.8 L Albumin 3.3 L Urine Color Urine Appearance Urine pH Ur Specific [place] Urine Protein Urine Glucose (UA) Urine Ketones Urine Blood Urine Nitrite Ur Leukocyte Esterase Urine RBC Urine WBC Ur Squamous Epith Cells Urine Bacteria Hyaline Casts 03/03/23 03/03/23 03/03/23 14:38 15:09 15:19 MCV MCH MCHC RDW Plt Count MPV Immature Gran % (Auto) Neut % (Auto) Lymph % (Auto) [place] % (Auto) Eos % (Auto) Baso % (Auto) Lymph # (Auto) [place] # (Auto) Eos # (Auto) Baso # (Auto) Abs Immat Gran (auto) Absolute Neuts (auto) Absolute Nucleated RBC Nucleated RBC % (auto) PT INR Anion Gap Estim Creat Clear Calc Estimated GFR POC Glucose 249 H Random Glucose Lactic Acid 1.4 Calcium Total Bilirubin AST ALT Alkaline Phosphatase Total Protein Albumin Urine Color Yellow Urine Appearance Cloudy Urine pH 5.5 Ur Specific [place] 1.015 Urine Protein 100 (2+) H Urine Glucose (UA) 500 H Urine Ketones Negative Urine Blood Large (3+) H Urine Nitrite Positive H Ur Leukocyte Esterase Trace H Urine RBC >20 H Urine WBC 0-5 Ur Squamous Epith Cells 0-2 Urine Bacteria 1+ Hyaline Casts 0-2 Assessment and Plan (1) LAURA (acute kidney injury): Status: Acute Plan 77M PMH prostace cancer with bone mets, CAD, paroxysmal afib, CKD II, hld, htn, DM, presented with bilateral leg weakness and LAURA bilateral leg weakness, urinary retention concern for cord compression empiric decadron, MRI given prolonged symptoms, doubt acute oncology, eval laura on CKD II due to dehydration and urinary retention gu for relief of osbtruction ivf monitor paroxysmal afib eliquis? metoprolol? DM with hyperglycemia insulin, monitor pocs CAD eliquis, statin dvt prophylaxis - eliquis DNR/DNI unable to verify medrec, will readdress in AM with patient's pharmacy patient with significant weakness, laura, requring further investigations and iv meds as above, therefore, expected to require atleast 2 midnights inpatient Time Spent With Patient Time: Total time managing care of this patient today ____ minutes. Quality Stroke Does the patient have a stroke diagnosis?: No VTE Prior VTE?: No VTE Risk Level:: Medical - moderate - high VTE Device Contraindication: Treatment Not Indicated VTE Drug Contraindication: N/A - Med Ordered
[2023-03-03] MEDS: 0.9 % Sodium Chloride 1,000 ML 75 ML IVCONT (17:00)
[2023-03-03] MEDS: dexAMETHasone sod phosphate 10 MG/ML VIAL IVPUSH (17:03)
[2023-03-03 17:04] VITALS: BP 145/77; PULSE 107; RESP 12; O2SAT 97
[2023-03-03 19:41] LABS: Glucose, Whole Blood 313 mg/dL (60-115)
[2023-03-03] MEDS: Atorvastatin Calcium 40 MG TABLET PO (20:02)
[2023-03-03] MEDS: Insulin Lispro 100 UNIT/ML 3 ML VIAL SUBCUT (20:02)
[2023-03-03] MEDS: Apixaban 5 MG TABLET PO (20:02)
[2023-03-03] MEDS: Metoprolol Tartrate 50 MG TABLET PO (20:02)
[2023-03-03 20:12] VITALS: BMI 18.2
--- NOTE | 2023-03-03 22:31 | MHC.PIE ---
p; pt arrived from ed, bladder scanned for over 1100. pt straigh cathed. note; ed unable to place zapata after multiple attempts. ? keep straight cath till uro am? i; dr salcedo notified - keep straight cath over night e; will cont to monitor
[2023-03-03] MEDS: dexAMETHasone sod phosphate 4 MG/ML VIAL IVPUSH (23:38)
--- NOTE | 2023-03-04 02:15 | PC.NURSE ---
LISA TEXT RECEIVED FROM [facility] AT 0200 THAT BLOOD CULTURES DRAWN ON THIS PATIENT ON 03/03 SHOW PRELIMINARY RESULTS OF GNR OF BOTH SETS ON THE GRAM STAIN, HOSPITALIST ON DUTY ALERTED INFORMED HIM PT ALREADY ON IV ABX AND RESPONDED OK TO MESSAGE AT 0212.
[2023-03-04 03:31] VITALS: BP 137/73; PULSE 82; RESP 16; TEMP 36.1; O2SAT 98
[2023-03-04] MEDS: dexAMETHasone sod phosphate 4 MG/ML VIAL IVPUSH (04:48)
--- NOTE | 2023-03-04 05:26 | PC.NURSE ---
PATIENT FOUND WITH URINARY RETENTION DURING WORK UP IN ED SETTING PRESENTING WITH LEG WEAKNESS. PER ED REPORTS PT RETAINING LARGE AMOUNTS AND STAFF ABLE TO INSERT A STRAIGHT CATHETER WITH URINE RETURN, HOWEVER, AN INDWELLING CATHETER WAS UNSUCCESSFUL. WHEN PATIENT CARED FOR ON FLOOR, S3 RN WAS ABLE TO ST CATH FOR A BLADDER SCAN READING OF 1200ML, UROLOGY WAS NOT PRESENT AND DETERMINED TO LEAVE ST CATH INSERTION PLACED, MONITOR CLOSELY, EMPTY FREQUENTLY NEEDED UNTIL UROLOGIST SEES PT IN AM. SEE DOCUMENTATION. PT TOLERATING WELL, EMPTIED FOR 400ML, THEN 350ML DURING 11-7 TIME AND WILL DO ONE MORE AM EMPTYING. URINE YELLOW, PT WITH NO STATED PAIN OR DISCOMFORTS. WILL CONTINUE TO MONITOR.
[2023-03-04 06:08] LABS: Hematocrit 32.7 % (42.0-52.0); Hemoglobin 10.6 g/dl (14.0-18.0); Mean Corpuscular HGB Conc 32.4 g/dl (31.0-36.0); Mean Corpuscular Hemoglobin 30.4 pg (27.0-33.0); Mean Corpuscular Volume 93.7 fL (80.0-98.0); Mean Platelet Volume 9.4 fL (9.4-12.4); Platelet Count 201 X10*3/uL (160-400); Red Blood Count 3.49 X10*6/uL (4.60-5.80); Red Cell Distribution Width 18.4 % (11.0-16.0); White Blood Count 7.2 X10*3/uL (4.8-10.8)
[2023-03-04] MEDS: 0.9 % Sodium Chloride 1,000 ML 75 ML IVCONT ×2 (06:08→19:38)
--- NOTE | 2023-03-04 06:12 | PC.NURSE ---
ADDITIONAL 50ML EMPTIED FROM ST CATH IN PLACE FOR A SHIFT TOTAL OF 800ML 11-7 TIME, CONTINUES TO TOLERATE WELL.
[2023-03-04 06:34] LABS: Anion Gap 14 (12-20); Blood Urea Nitrogen 28 mg/dL (9-16); Calcium 8.6 mg/dL (8.4-10.2); Carbon Dioxide 21 mmol/L (22-29); Chloride 106 mmol/L (96-108); Creatinine Clr Calc Pharmacy 29.7; Estimated Glomerular Filt Rate 36; Glucose Fasting 449 mg/dL (60-99); Potassium 4.8 mmol/L (3.3-5.1); Sodium 136 mmol/L (135-145)
--- NOTE | 2023-03-04 06:41 | PC.NURSE ---
RECEIVED CALL FROM LAB THIS AM AT 0635, PATIENTS GLUCOSE LEVEL 449, NOTED PT DID HAVE ORANGE JUICE OVER NIGHT, HOSPITALIST ON DUTY INFORMED AND AWAITING IF NEW ORDERS WITH SCHEDULED ISS. WILL ALERT DAY RN ALSO. NO STAUS CHANGES TO PATIENT, ALERT, APPROPRIATE, AND WATCHING TV.
[2023-03-04] MEDS: Insulin Lispro 100 UNIT/ML 3 ML VIAL SUBCUT ×9 (07:25→21:08)
[2023-03-04] MEDS: 0.9 % Sodium Chloride Flush 3 ML SYRINGE IVFLUSH ×2 (07:26→16:00)
[2023-03-04] MEDS: Metoprolol Tartrate 50 MG TABLET PO ×2 (07:26→21:07)
[2023-03-04] MEDS: Apixaban 5 MG TABLET PO ×2 (07:26→21:07)
[2023-03-04 07:28] VITALS: BP 137/68; PULSE 88; RESP 18; TEMP 36; O2SAT 98
--- NOTE | 2023-03-04 08:02 | HO.PM.IMPN ---
Subjective Subjective Date of Service: 03/04/23 Interval History: some improvement in weakness Physical Exam Vital Signs: Vital Signs: Last Vital Signs Temp 96.8 F 03/04/23 07:28 Pulse 88 03/04/23 07:28 Resp 18 03/04/23 07:28 BP 137/68 03/04/23 07:28 Pulse Ox 98 03/04/23 07:28 O2 Del Method Room Air 03/04/23 07:28 BMI result Body Mass Index 18.2 alert oriented times 3, less frail appearing than on admission, but overall ill lower extremity weakness improved Objective Data Active Medications Apixaban (Apixaban 5 Mg Tablet) 5 mg PO BID [facility] Last Admin: 03/04/23 07:26 Dose: 5 mg Documented By: CAYDEN Atorvastatin Calcium (Atorvastatin Calcium 40 Mg Tablet) 40 mg PO BEDTIME [facility] Last Admin: 03/03/23 20:02 Dose: 40 mg Documented By: SHAWNEE Glucose (Glucose Gel 15 Gm Gel..Gram.) 15 gm PO Q15M PRN; Protocol PRN Reason: per Hypoglycemia Standing Ord. Ceftriaxone Sodium 1 gm/ (Sodium Chloride) 50 mls @ 100 mls/hr IV Q24H [facility] Sodium Chloride (Ns) 1,000 mls @ 75 mls/hr IVCONT .[id number] [facility] Last Admin: 03/04/23 06:08 Dose: 75 mls/hr Documented By: HAILE Dextrose (D10) 250 mls @ 750 mls/hr IV Q15M PRN; Protocol PRN Reason: per Hypoglycemia Standing Ord. Insulin Glargine (Insulin Glargine,Hum.Rec.Anlog 100 Unit/Ml 10 Ml Vial) 15 unit SUBCUT DAILY [facility] Insulin Human Lispro (Insulin Lispro 100 Unit/Ml 3 Ml Vial) 0 unit SUBCUT QIDACHS [facility]; Protocol Last Admin: 03/04/23 07:25 Dose: 10 unit Documented By: CAYDEN Insulin Human Lispro (Insulin Lispro 100 Unit/Ml 3 Ml Vial) 5 unit SUBCUT QIDACHS [facility] Last Admin: 03/04/23 07:25 Dose: 5 unit Documented By: CAYDEN Metoprolol Tartrate (Metoprolol Tartrate 50 Mg Tablet) 50 mg PO BID [facility]; Protocol Last Admin: 03/04/23 07:26 Dose: 50 mg Documented By: CAYDEN Pharmacy Consult (Consult Rx Perform Med Rec) 1 each MISCELLANE ONCE PRN PRN Reason: Consult order Sodium Chloride (0.9 % Sodium Chloride Flush 3 Ml Syringe) [facility] Admin: 03/04/23 07:26 Dose: 3 ml Documented By: CAYDEN Labs 03/04/23 05:48 03/04/23 05:48 Labs: Laboratory Results - last 24 hr 03/03/23 03/03/23 03/03/23 13:48 13:48 13:48 MCV 91.6 MCH 30.7 MCHC 33.5 RDW 18.2 H Plt Count 197 MPV 8.9 L Immature Gran % (Auto) 1.5 H Neut % (Auto) 81.3 H Lymph % (Auto) 8.1 L Richardson % (Auto) 4.4 Eos % (Auto) 4.0 Baso % (Auto) 0.7 Lymph # (Auto) 0.6 L Richardson # (Auto) 0.3 Eos # (Auto) 0.3 Baso # (Auto) 0.1 Abs Immat Gran (auto) 0.11 H Absolute Neuts (auto) 6.1 Absolute Nucleated RBC 0.000 Nucleated RBC % (auto) 0.0 PT 15.8 H INR 1.4 H Anion Gap 12 Estim Creat Clear Calc 38.6 Estimated GFR 39 POC Glucose Random Glucose 287 H Fasting Glucose Lactic Acid Calcium 9.5 Total Bilirubin 1.9 H AST 118 H ALT 80 H Alkaline Phosphatase 178 H Total Protein 5.8 L Albumin 3.3 L Urine Color Urine Appearance Urine pH Ur Specific [place] Urine Protein Urine Glucose (UA) Urine Ketones Urine Blood Urine Nitrite Ur Leukocyte Esterase Urine RBC Urine WBC Ur Squamous Epith Cells Urine Bacteria Hyaline Casts 03/03/23 03/03/23 03/03/23 14:38 15:09 15:19 MCV MCH MCHC RDW Plt Count MPV Immature Gran % (Auto) Neut % (Auto) Lymph % (Auto) Richardson % (Auto) Eos % (Auto) Baso % (Auto) Lymph # (Auto) Richardson # (Auto) Eos # (Auto) Baso # (Auto) Abs Immat Gran (auto) Absolute Neuts (auto) Absolute Nucleated RBC Nucleated RBC % (auto) PT INR Anion Gap Estim Creat Clear Calc Estimated GFR POC Glucose 249 H Random Glucose Fasting Glucose Lactic Acid 1.4 Calcium Total Bilirubin AST ALT Alkaline Phosphatase Total Protein Albumin Urine Color Yellow Urine Appearance Cloudy Urine pH 5.5 Ur Specific [place] 1.015 Urine Protein 100 (2+) H Urine Glucose (UA) 500 H Urine Ketones Negative Urine Blood Large (3+) H Urine Nitrite Positive H Ur Leukocyte Esterase Trace H Urine RBC >20 H Urine WBC 0-5 Ur Squamous Epith Cells 0-2 Urine Bacteria 1+ Hyaline Casts 0-2 03/03/23 03/04/23 03/04/23 19:35 05:48 05:48 MCV 93.7 MCH 30.4 MCHC 32.4 RDW 18.4 H Plt Count 201 MPV 9.4 Immature Gran % (Auto) Neut % (Auto) Lymph % (Auto) Richardson % (Auto) Eos % (Auto) Baso % (Auto) Lymph # (Auto) Richardson # (Auto) Eos # (Auto) Baso # (Auto) Abs Immat Gran (auto) Absolute Neuts (auto) Absolute Nucleated RBC 0.000 Nucleated RBC % (auto) 0.0 PT INR Anion Gap 14 Estim Creat Clear Calc 29.7 Estimated GFR 36 POC Glucose 313 H Random Glucose Fasting Glucose 449 H* Lactic Acid Calcium 8.6 D Total Bilirubin AST ALT Alkaline Phosphatase Total Protein Albumin Urine Color Urine Appearance Urine pH Ur Specific [place] Urine Protein Urine Glucose (UA) Urine Ketones Urine Blood Urine Nitrite Ur Leukocyte Esterase Urine RBC Urine WBC Ur Squamous Epith Cells Urine Bacteria Hyaline Casts Microbiology Microbiology Results: Microbiology 03/03/23 15:03 Urine Culture - Preliminary Urine clean catch - Clean Catch Midstream Culture in progress. 03/03/23 15:20 Blood Culture - Preliminary Blood - Venous Prelim: GNR Gram Stain only 03/03/23 15:19 Blood Culture - Preliminary Blood - Venous Prelim: GNR Gram Stain only Assessment and Plan (1) LAURA (acute kidney injury): Status: Acute Plan 77M PMH prostace cancer with bone mets, CAD, paroxysmal afib, CKD II, hld, htn, DM, presented with bilateral leg weakness and LAURA bilateral leg weakness MRI negative for cord compression - will dc steroids PT eval urinary retention complicated by acute pyelonephritis complicated by GNR bacteremia intermittent cath, eval rocephin, follow up cultures will check CT abd - check for hydro, rule out other source of bacteremia laura on CKD II due to dehydration and urinary retention gu eval ivf monitor paroxysmal afib eliquis, metoprolol for now, follow up medlist later today DM with hyperglycemia insulin, monitor pocs CAD eliquis, statin dvt prophylaxis - eliquis DNR/DNI reason for continued hospitalization: bacteremia Time Spent With Patient Time: Total time managing care of this patient today ____ minutes. Quality Stroke Does the patient have a stroke diagnosis?: No VTE Prior VTE?: No VTE Risk Level:: Medical - moderate - high VTE Device Contraindication: Treatment Not Indicated VTE Drug Contraindication: N/A - Med Ordered
--- NOTE | 2023-03-04 09:21 | MHC.CM.PN ---
IMM DELIVERED PT LIVES IN A [facility] WITH SPOUSE. IS ABLE TO AMBULATE SHORT DISTANCE INDEPENDENTLY BUT USES CANE FOR LONGER DISTANCE. +COVID VAX X3 + HCP BUT NOT SURE WHERE IT IS, WILLING TO DO A NEW ONE. PCP DR. GIMENEZ AT [facility]. DP: HOME WITH SERVICES VS SNF (PT IS HESITANT) WILL AWAIT P.T. RECOMMENDATIONS BEFORE DECIDING. SPOUSE VS BLS FOR TRANSPORT.
[2023-03-04] MEDS: Insulin Glargine,Hum.rec.anlog 100 UNIT/ML 10 ML VIAL 15 UNIT SUBCUT (09:28)
--- NOTE | 2023-03-04 11:20 | PHA.MEDREC ---
Addendum entered by [facility] 03/04/23 13:20: Spoke to Dr. Staley again who clarified with me that patient is on abiraterone and NOT on apalutamide. He also mentioned that patient is on albuterol and prednisone. Addendum entered by [facility] 03/04/23 11:55: Spoke to patients oncologist Dr. Staley, he stated he last saw this patient on 02/27. He stated that patients PCP Dr. Osman may not have updated information as the patient has stated he stopping going to Dr. Osman and has been requesting that Dr. Staley take over his medications. Dr. Staley was able to confirm that patient is on eliquis, metformin, rosuvastatin, januvia, metoprolol and mirabegron. He also confirmed that patient has dc'd prednisone, bicalutamide, and ASA. Also confirmed patient is on Erleada (apalutamide) however patient has not picked it up in a few months and has recently picked up abiraterone. Waiting for call back from office to confirm. Will update note once I know. Original Note: Pharmacy Consult ? Medication Reconciliation Pharmacy has completed the medication reconciliation. spoke with patient and his in the ED 03/03. They had an updated list that they gave to an EMT however we were unable to track it down. They had another list that was old but it was no help as they were very unsure about it. Patient was able to confirm only a few medication names (no doses or frequencies). This morning I was able to call his pharmacy and ask for prescriber information to follow up.
[2023-03-04 11:36] LABS: Glucose, Whole Blood 519 mg/dL (60-115)
[2023-03-04 12:02] VITALS: BMI 20.8
--- NOTE | 2023-03-04 12:13 | MHC.CLN ---
NUTRITION DIET=DIABETIC 2200 KCALS. ENSURE BID PROVIDES ADDITIONAL 700 KCALS. 40 G PROTEIN. REPORTS SIGNIFICANT, INVOLUNTARY WEIGHT LOSS X ONE MONTH. ATE 100% THIS BREAKFAST, BUT REPORTS HASN'T EATEN WELL X ONE MONTH. NO CURRENT VOMITING REPORTED. DIETARY KCALS INCREASED TO 2200 TO BETTER MEET ESTIMATED ENERGY NEEDS. SUPPLEMENT ADDED TO IMPROVE NUTRITIONAL INTAKE. FOLLOW FOR INTAKE AND DIET TOLERANCE.
--- NOTE | 2023-03-04 14:00 | PM.NEUROCN ---
History of Present Illness Data of Consult Service Date: 03/04/23 Primary Care Provider: None Physician HPI Reason for consult: Leg weak 77M PMH prostace cancer with bone mets, CAD, paroxysmal afib, CKD II, hld, htn, DM, presented with bilateral leg weakness. patient reports progressive bilateral lower extremity weakness over past few weeks day of presentation was worse and unable to get up from chair.? No recent fall or trauma. He denied any burning or significant tingling in his feet. There was some numbness. Review of Systems Review of Systems: Right hip area pain. [facility] Past Medical History Medical History Elevated PSA Prostate cancer Urgency incontinence Surgical History Surgical History History of cystoscopy History of prostatectomy Social History Social History Household Members: Spouse Housing: House Do you presently have visiting nurse or other home services: No Patient Tobacco Use Status: Never used Tobacco service: No Current occupational status: retired [employer] Allergies Allergy/AdvReac Type Severity Reaction Status Date / Time bee pollen [BEE STINGS] Allergy Severe ANAPHYLAXIS Verified 12/11/22 11:40 leuprolide [From Lupron] AdvReac Unknown REACTION Verified 12/11/22 11:40 TO BRAND NAME LUPRON, OTHER BRANDS OK bee stings Allergy Unknown anaphylaxis Uncoded 12/11/22 11:40 Active Medications: Current Medications Apixaban (Apixaban 5 Mg Tablet) 5 mg PO BID [facility] Last Admin: 03/04/23 07:26 Dose: 5 mg Atorvastatin Calcium (Atorvastatin Calcium 40 Mg Tablet) 40 mg PO BEDTIME [facility] Last Admin: 03/03/23 20:02 Dose: 40 mg Finasteride (Finasteride 5 Mg Tablet) 5 mg PO DAILY [facility] Glucose (Glucose Gel 15 Gm Gel..Gram.) 15 gm PO Q15M PRN; Protocol PRN Reason: per Hypoglycemia Standing Ord. Ceftriaxone Sodium 1 gm/ (Sodium Chloride) 50 mls @ 100 mls/hr IV Q24H ALEJANDRA Sodium Chloride (Ns) 1,000 mls @ 75 mls/hr IVCONT .[id number] [facility] Last Admin: 03/04/23 06:08 Dose: 75 mls/hr Dextrose (D10) 250 mls @ 750 mls/hr IV Q15M PRN; Protocol PRN Reason: per Hypoglycemia Standing Ord. Insulin Glargine (Insulin Glargine,Hum.Rec.Anlog 100 Unit/Ml 10 Ml Vial) 15 unit SUBCUT DAILY [facility] Last Admin: 03/04/23 09:28 Dose: 15 unit Insulin Human Lispro (Insulin Lispro 100 Unit/Ml 3 Ml Vial) 0 unit SUBCUT QIDACHS [facility]; Protocol Last Admin: 03/04/23 11:45 Dose: 10 unit Insulin Human Lispro (Insulin Lispro 100 Unit/Ml 3 Ml Vial) 5 unit SUBCUT QIDACHS [facility] Last Admin: 03/04/23 11:44 Dose: 5 unit Metoprolol Tartrate (Metoprolol Tartrate 50 Mg Tablet) 50 mg PO BID [facility]; Protocol Last Admin: 03/04/23 07:26 Dose: 50 mg Mirabegron (Mirabegron 25 Mg Tab.Er.24h) 25 mg PO DAILY [facility] Pharmacy Consult (Consult Rx Perform Med Rec) 1 each MISCELLANE ONCE PRN PRN Reason: Consult order Sitagliptin Phosphate (Sitagliptin Phosphate 25 Mg Tablet) 25 mg PO DAILY [facility] Sodium Chloride (0.9 % Sodium Chloride Flush 3 Ml Syringe) 3 ml IVFLUSH QSHIFT [facility] Last Admin: 03/04/23 07:26 Dose: 3 ml Home Medications Medication Instructions Recorded Confirmed Last Taken Type apixaban 5 mg tablet 5 mg PO BID 10/07/20 03/04/23 Unknown History metoprolol tartrate 50 mg tablet 75 mg PO BID 10/07/20 03/04/23 Unknown History rosuvastatin 40 mg tablet 40 mg PO DAILY 10/07/20 03/04/23 Unknown History sitagliptin phosphate 25 mg tablet 25 mg PO DAILY 10/07/20 03/04/23 Unknown History metformin 850 mg tablet 850 mg PO DAILY 03/03/23 03/04/23 Unknown History oxycodone 5 mg tablet 5 mg PO QID PRN Pain 03/03/23 03/04/23 Unknown History abiraterone 500 mg tablet 500 mg PO BID 03/04/23 03/04/23 Unknown History albuterol sulfate 90 mcg/actuation 2 puff inhalation Q6H PRN Wheezing 03/04/23 03/04/23 Unknown History aerosol inhaler fluticasone propionate 50 1 spray intranasal DAILY 03/04/23 03/04/23 Unknown History mcg/actuation nasal spray,suspension prednisone 5 mg tablet 5 mg PO BID 03/04/23 03/04/23 Unknown History Physical Exam Vital Signs: Vital Signs: Last Vital Signs Temp 96.8 F 03/04/23 07:28 Pulse 88 03/04/23 07:28 Resp 18 03/04/23 07:28 BP 137/68 03/04/23 07:28 Pulse Ox 98 03/04/23 07:28 O2 Del Method Room Air 03/04/23 07:28 BMI result Body Mass Index 20.8 Neuro: Other: Alert and awake with normal spontaneity of speech fluency comprehension and affect. Deep tendon reflexes are absent with flat plantars. Trophic skin changes are noted feet. Some mild swelling is noted in legs. He is able to lift each leg against gravity flex head knees and wiggle his toes. Results Labs 03/04/23 05:48 03/04/23 05:48 Labs: Short CBC 03/04/23 Range/Units 05:48 WBC 7.2 (4.8-10.8) X10*3/uL Hgb 10.6 L (14.0-18.0) g/dl Hct 32.7 L (42.0-52.0) % Plt Count 201 (160-400) X10*3/uL BMP 03/03/23 03/04/23 13:48 05:48 Sodium 140 136 Potassium 3.8 4.8 D Chloride 107 106 Carbon Dioxide 25 21 L BUN 23 H 28 H Creatinine 1.70 H 1.81 H Calcium 9.5 8.6 D Liver Function 03/03/23 Range/Units 13:48 Total Bilirubin 1.9 H (0.0-1.0) mg/dL AST 118 H (5-37) U/L ALT 80 H (0-40) U/L Alkaline Phosphatase 178 H (39-117) U/L Albumin 3.3 L (3.5-5.0) g/dL Urine 03/03/23 Range/Units 14:38 Urine Color Yellow Urine Appearance Cloudy Urine pH 5.5 (5.0-9.0) Ur Specific [place] 1.015 (1.005-1.025) Urine Protein 100 (2+) H (Neg-Trace) mg/dL Urine Glucose (UA) 500 H (Negative) mg/dL Microbiology Microbiology Results: Microbiology 03/03/23 15:20 Blood - Venous Blood Culture - Preliminary Prelim: GNR Gram Stain only 03/03/23 15:19 Blood - Venous Blood Culture - Preliminary Prelim: GNR Gram Stain only 03/03/23 15:03 Urine clean catch - Clean Catch Midstream Urine Culture - Preliminary Culture in progress. Assessment and Plan (1) Peripheral neuropathy: Status: Acute (2) Multifactorial gait disorder: Status: Acute 77 years old man with prostatic metastatic disease with meds and multiple bones is in hospital with bilateral leg weakness difficulty walking and unsteadiness for days to weeks. Examination is suggestive of chronic peripheral neuropathy while is blood sugar is and 4 to 500s. He denied any recent cold or flu-like illness. I recommend PT OT and any EMG nerve conduction study to define neuropathy and to rule out demyelinating type of neuropathy. If that is not found, management is conservative. (3) Metastatic cancer: Status: Acute Time Spent With Patient Time: Total time managing care of this patient today ____ minutes. Procedures Date of Service Date of Service: 03/04/23
[2023-03-04] MEDS: SITagliptin Phosphate 25 MG TABLET PO (14:12)
[2023-03-04 15:10] VITALS: BP 119/69; PULSE 90; RESP 18; TEMP 36; O2SAT 96
[2023-03-04] MEDS: cefTRIAXone sodium 1 GM in 0.9 % Sodium Chloride 50 ML IV (16:00)
[2023-03-04 16:24] LABS: Glucose, Whole Blood 439 mg/dL (60-115)
--- NOTE | 2023-03-04 16:58 | PC.NURSE ---
BS 439 Dr. Durbin notified
[2023-03-04 19:48] VITALS: BP 123/65; PULSE 91; RESP 18; TEMP 36.6; O2SAT 96
[2023-03-04 20:47] LABS: Glucose, Whole Blood 478 mg/dL (60-115)
[2023-03-04] MEDS: Atorvastatin Calcium 40 MG TABLET PO (21:07)
[2023-03-04] MEDS: Insulin Lispro 100 UNIT/ML 3 ML VIAL 10 UNIT SUBCUT (21:09)
--- NOTE | 2023-03-04 21:36 | MHC.PIE ---
p; poc 478 i; dr ribera notified; new order humalog 10 u now e; will cont to jessica
[2023-03-04] MEDS: Acetaminophen 325 MG TABLET 650 MG PO (21:45)
[2023-03-05 03:20] VITALS: BP 117/68; PULSE 70; RESP 18; TEMP 36.1; O2SAT 95
[2023-03-05 05:17] LABS: Hematocrit 30.1 % (42.0-52.0); Mean Corpuscular HGB Conc 33.2 g/dl (31.0-36.0); Mean Corpuscular Hemoglobin 30.7 pg (27.0-33.0); Mean Corpuscular Volume 92.3 fL (80.0-98.0); Mean Platelet Volume 9.2 fL (9.4-12.4); Platelet Count 212 X10*3/uL (160-400); Red Blood Count 3.26 X10*6/uL (4.60-5.80); Red Cell Distribution Width 18.2 % (11.0-16.0); White Blood Count 9.5 X10*3/uL (4.8-10.8)
[2023-03-05 05:38] LABS: Anion Gap 14 (12-20); Blood Urea Nitrogen 38 mg/dL (9-16); Calcium 8.9 mg/dL (8.4-10.2); Carbon Dioxide 21 mmol/L (22-29); Chloride 106 mmol/L (96-108); Creatinine Clr Calc Pharmacy 37.7; Estimated Glomerular Filt Rate 41; Glucose Fasting 310 mg/dL (60-99); Potassium 5.1 mmol/L (3.3-5.1); Sodium 136 mmol/L (135-145)
[2023-03-05 07:45] VITALS: BP 136/73; PULSE 88; RESP 18; TEMP 36.2; O2SAT 97
[2023-03-05 07:49] LABS: Glucose, Whole Blood 275 mg/dL (60-115)
[2023-03-05] MEDS: Insulin Glargine,Hum.rec.anlog 100 UNIT/ML 10 ML VIAL 15 UNIT SUBCUT (08:29)
[2023-03-05] MEDS: Insulin Lispro 100 UNIT/ML 3 ML VIAL SUBCUT ×7 (08:29→20:34)
--- NOTE | 2023-03-05 08:31 | P.PNIM_ITS ---
Subjective Subjective Date of Service: 03/05/23 Interval History: improving weakness Physical Exam Vital Signs: Vital Signs: Last Vital Signs Temp 97.1 F 03/05/23 07:45 Pulse 88 03/05/23 07:45 Resp 18 03/05/23 07:45 BP 136/73 03/05/23 07:45 Pulse Ox 97 03/05/23 07:45 O2 Del Method Room Air 03/05/23 07:45 BMI result Body Mass Index 20.8 Neuro: Other: Alert and awake with normal spontaneity of speech fluency comprehension and affect. Deep tendon reflexes are absent with flat plantars. Trophic skin changes are noted feet. Some mild swelling is noted in legs. He is able to lift each leg against gravity flex head knees and wiggle his toes. Objective Data Active Medications Acetaminophen (Acetaminophen 325 Mg Tablet) 650 mg PO Q8H PRN PRN Reason: Pain, Mild (Pain Scale 1-3) Last Admin: 03/04/23 21:45 Dose: 650 mg Documented By: SHAWNEE Apixaban (Apixaban 5 Mg Tablet) 5 mg PO BID [facility] Last Admin: 03/04/23 21:07 Dose: 5 mg Documented By: SHAWNEE Atorvastatin Calcium (Atorvastatin Calcium 40 Mg Tablet) 40 mg PO BEDTIME [facility] Last Admin: 03/04/23 21:07 Dose: 40 mg Documented By: SHAWNEE Finasteride (Finasteride 5 Mg Tablet) 5 mg PO DAILY [facility] Glucose (Glucose Gel 15 Gm Gel..Gram.) 15 gm PO Q15M PRN; Protocol PRN Reason: per Hypoglycemia Standing Ord. Guaifenesin/Dextromethorphan (Guaifenesin Dm 100/10/5 Ml 5 Ml Syrup) 5 ml PO Q4H PRN PRN Reason: cough Ceftriaxone Sodium 1 gm/ (Sodium Chloride) 50 mls @ 100 mls/hr IV Q24H [facility] Last Infusion: 03/04/23 16:52 Dose: 0 mls/hr Documented By: YASIR Sodium Chloride (Ns) 1,000 mls @ 75 mls/hr IVCONT .[id number] [facility] Last Admin: 03/04/23 19:38 Dose: 75 mls/hr Documented By: SHAWNEE Dextrose (D10) 250 mls @ 750 mls/hr IV Q15M PRN; Protocol PRN Reason: per Hypoglycemia Standing Ord. Insulin Glargine (Insulin Glargine,Hum.Rec.Anlog 100 Unit/Ml 10 Ml Vial) 15 unit SUBCUT DAILY [facility] Last Admin: 03/04/23 09:28 Dose: 15 unit Documented By: CAYDEN Insulin Human Lispro (Insulin Lispro 100 Unit/Ml 3 Ml Vial) 0 unit SUBCUT QIDACHS [facility]; Protocol Last Admin: 03/04/23 21:08 Dose: 10 unit Documented By: SHAWNEE Insulin Human Lispro (Insulin Lispro 100 Unit/Ml 3 Ml Vial) 5 unit SUBCUT QIDACHS [facility] Last Admin: 03/04/23 21:07 Dose: 5 unit Documented By: SHAWNEE Metoprolol Tartrate (Metoprolol Tartrate 50 Mg Tablet) 50 mg PO BID [facility]; Protocol Last Admin: 03/04/23 21:07 Dose: 50 mg Documented By: SHAWNEE Mirabegron (Mirabegron 25 Mg Tab.Er.24h) 25 mg PO DAILY [facility] Non-Formulary Medication (Abiraterone) 500 mg PO BID [facility] Pharmacy Consult (Consult Rx Perform Med Rec) 1 each MISCELLANE ONCE PRN PRN Reason: Consult order Sitagliptin Phosphate (Sitagliptin Phosphate 25 Mg Tablet) 25 mg PO DAILY [facility] Last Admin: 03/04/23 14:12 Dose: 25 mg Documented By: CAYDEN Sodium Chloride (0.9 % Sodium Chloride Flush 3 Ml Syringe) 3 ml IVFLUSH QSHIFT [facility] Last Admin: 03/04/23 21:09 Dose: Not Given Documented By: SHAWNEE Non-Admin Reason: IV Running Labs 03/05/23 05:10 03/05/23 05:10 Labs: Laboratory Results - last 24 hr 03/04/23 03/04/23 03/04/23 11:29 16:13 20:43 MCV MCH MCHC RDW Plt Count MPV Absolute Nucleated RBC Nucleated RBC % (auto) Anion Gap Estim Creat Clear Calc Estimated GFR POC Glucose 519 H* 439 H* 478 H* Fasting Glucose Calcium 03/05/23 03/05/23 03/05/23 05:10 05:10 07:43 MCV 92.3 MCH 30.7 MCHC 33.2 RDW 18.2 H Plt Count 212 MPV 9.2 L Absolute Nucleated RBC 0.000 Nucleated RBC % (auto) 0.0 Anion Gap 14 Estim Creat Clear Calc 37.7 Estimated GFR 41 POC Glucose 275 H Fasting Glucose 310 H Calcium 8.9 Microbiology Microbiology Results: Microbiology 03/03/23 15:20 Blood Culture - Preliminary Blood - Venous Prelim: GNR Gram Stain only 03/03/23 15:19 Blood Culture - Preliminary Blood - Venous Prelim: GNR Gram Stain only 03/03/23 15:03 Urine Culture - Preliminary Urine clean catch - Clean Catch Midstream Culture in progress. Assessment and Plan (1) LAURA (acute kidney injury): Status: Acute Plan 77M PMH prostace cancer with bone mets, CAD, paroxysmal afib, CKD II, hld, htn, DM, presented with bilateral leg weakness and LAURA bilateral leg weakness likely multifactorial - deconditioning due to metastatic prostate ca in setting of uti with bacteremia and peripheral neuropathy for DM with hyperglycemia ?paraneoplastic - neuro eval appreciated - more likely diabetic neuropathy MRI negative for cord compression, discontinued steroids PT eval - recommending home vs snf - patient would prefer PT at home urinary retention complicated by acute pyelonephritis complicated by GNR b acteremia zapata cath placed by ZHANNA nunez, follow up cultures laura on CKD II due to dehydration and urinary retention ivf, improving slowly monitor paroxysmal afib eliquis, metoprolol DM with hyperglycemia and peripheral neuropathy expect improvement now steroids discontinued basal bolus insulin, monitor pocs may need insulin at home CAD eliquis, statin dvt prophylaxis - eliquis DNR/DNI reason for continued hospitalization: bacteremia, awaiting cultures, ivf for laura Time Spent With Patient Time: Total time managing care of this patient today ____ minutes. Quality Stroke Does the patient have a stroke diagnosis?: No VTE Prior VTE?: No VTE Risk Level:: Medical - moderate - high VTE Device Contraindication: Treatment Not Indicated VTE Drug Contraindication: N/A - Med Ordered
[2023-03-05] MEDS: Apixaban 5 MG TABLET PO ×2 (08:32→20:35)
[2023-03-05] MEDS: Metoprolol Tartrate 50 MG TABLET PO ×2 (08:32→20:35)
[2023-03-05] MEDS: Finasteride 5 MG TABLET PO (08:32)
[2023-03-05] MEDS: SITagliptin Phosphate 25 MG TABLET PO (08:32)
[2023-03-05] MEDS: Mirabegron 25 MG TAB.ER.24H PO (08:32)
[2023-03-05 11:28] LABS: Glucose, Whole Blood 376 mg/dL (60-115)
[2023-03-05] MEDS: 0.9 % Sodium Chloride 1,000 ML 75 ML IVCONT (12:18)
--- NOTE | 2023-03-05 13:27 | MHC.CM.PN ---
PT rec STR likely vs home services. The patient declines STR. He prefers services at home. Preference is [facility], a referral has been sent. DP home with services. Patients will provide transportation home.
[2023-03-05] MEDS: ABIRATERONE 500 MG 500 EACH PO ×2 (14:28→20:35)
[2023-03-05] MEDS: predniSONE 5 MG TABLET PO ×2 (14:28→20:35)
[2023-03-05] MEDS: cefTRIAXone sodium 1 GM in 0.9 % Sodium Chloride 50 ML IV (14:29)
[2023-03-05 15:29] VITALS: BP 115/65; PULSE 84; RESP 18; TEMP 36.2; O2SAT 97
[2023-03-05 15:57] LABS: Glucose, Whole Blood 185 mg/dL (60-115)
[2023-03-05 19:43] VITALS: BP 127/73; PULSE 96; RESP 18; TEMP 36.1; O2SAT 98
[2023-03-05 20:16] LABS: Glucose, Whole Blood 355 mg/dL (60-115)
[2023-03-05] MEDS: 0.9 % Sodium Chloride Flush 3 ML SYRINGE IVFLUSH (20:35)
[2023-03-05] MEDS: Atorvastatin Calcium 40 MG TABLET PO (20:35)
[2023-03-06] MEDS: 0.9 % Sodium Chloride 1,000 ML 75 ML IVCONT (01:56)
[2023-03-06] MEDS: guaiFENesin DM 100/10/5 ML 5 ML SYRUP PO (01:59)
[2023-03-06 03:11] VITALS: BP 144/81; PULSE 87; RESP 17; TEMP 36.1; O2SAT 98
[2023-03-06 06:20] LABS: Anion Gap 11 (12-20); Blood Urea Nitrogen 29 mg/dL (9-16); Calcium 8.7 mg/dL (8.4-10.2); Carbon Dioxide 24 mmol/L (22-29); Chloride 109 mmol/L (96-108); Creatinine Clr Calc Pharmacy 44.5; Estimated Glomerular Filt Rate 50; Glucose Fasting 209 mg/dL (60-99); Potassium 4.2 mmol/L (3.3-5.1); Sodium 140 mmol/L (135-145)
[2023-03-06 06:36] LABS: Hematocrit 29.9 % (42.0-52.0); Hemoglobin 9.7 g/dl (14.0-18.0); Mean Corpuscular HGB Conc 32.4 g/dl (31.0-36.0); Mean Corpuscular Hemoglobin 30.5 pg (27.0-33.0); Mean Platelet Volume 9.6 fL (9.4-12.4); Platelet Count 213 X10*3/uL (160-400); Red Blood Count 3.18 X10*6/uL (4.60-5.80); Red Cell Distribution Width 18.2 % (11.0-16.0); White Blood Count 6.8 X10*3/uL (4.8-10.8)
[2023-03-06 07:00] VITALS: BP 133/75; PULSE 93; RESP 18; TEMP 37.1; O2SAT 95
[2023-03-06 07:19] LABS: Glucose, Whole Blood 193 mg/dL (60-115)
[2023-03-06] MEDS: ABIRATERONE 500 MG 500 EACH PO ×2 (07:44→20:54)
[2023-03-06] MEDS: Finasteride 5 MG TABLET PO (07:44)
[2023-03-06] MEDS: Apixaban 5 MG TABLET PO ×2 (07:44→20:53)
[2023-03-06] MEDS: predniSONE 5 MG TABLET PO ×2 (07:44→20:54)
[2023-03-06] MEDS: SITagliptin Phosphate 25 MG TABLET PO (07:44)
[2023-03-06] MEDS: Mirabegron 25 MG TAB.ER.24H PO (07:44)
[2023-03-06] MEDS: Metoprolol Tartrate 50 MG TABLET PO ×2 (07:44→20:54)
[2023-03-06] MEDS: Insulin Lispro 100 UNIT/ML 3 ML VIAL SUBCUT ×8 (07:45→20:53)
[2023-03-06] MEDS: Insulin Glargine,Hum.rec.anlog 100 UNIT/ML 10 ML VIAL 15 UNIT SUBCUT (07:45)
--- NOTE | 2023-03-06 08:34 | P.PNIM_ITS ---
Subjective Subjective Date of Service: 03/06/23 Interval History: f/u on laura, gnr bacteremia, pylonephritis Physical Exam Vital Signs: Vital Signs: Last Vital Signs Temp 98.8 F 03/06/23 07:00 Pulse 93 03/06/23 07:00 Resp 18 03/06/23 07:00 BP 133/75 03/06/23 07:00 Pulse Ox 95 03/06/23 07:00 O2 Del Method Room Air 03/06/23 07:00 BMI result Body Mass Index 20.8 Const: Other: General: AO X 3, no acute distress Resp: CTA bilateral CVS: S1,S2,RRR GI: +BS, NT, no distention Skin: No rash Neuro: motor grossly intact Psych: appropriate affect Neuro: Other: Alert and awake with normal spontaneity of speech fluency comprehension and affect. Deep tendon reflexes are absent with flat plantars. Trophic skin changes are noted feet. Some mild swelling is noted in legs. He is able to lift each leg against gravity flex head knees and wiggle his toes. Objective Data Active Medications Acetaminophen (Acetaminophen 325 Mg Tablet) 650 mg PO Q8H PRN PRN Reason: Pain, Mild (Pain Scale 1-3) Last Admin: 03/04/23 21:45 Dose: 650 mg Documented By: SHAWNEE Apixaban (Apixaban 5 Mg Tablet) 5 mg PO BID [facility] Last Admin: 03/06/23 07:44 Dose: 5 mg Documented By: MABEL Atorvastatin Calcium (Atorvastatin Calcium 40 Mg Tablet) 40 mg PO BEDTIME [facility] Last Admin: 03/05/23 20:35 Dose: 40 mg Documented By: LAXMI Finasteride (Finasteride 5 Mg Tablet) 5 mg PO DAILY [facility] Last Admin: 03/06/23 07:44 Dose: 5 mg Documented By: MABEL Glucose (Glucose Gel 15 Gm Gel..Gram.) 15 gm PO Q15M PRN; Protocol PRN Reason: per Hypoglycemia Standing Ord. Guaifenesin/Dextromethorphan (Guaifenesin Dm 100/10/5 Ml 5 Ml Syrup) 5 ml PO Q4H PRN PRN Reason: cough Last Admin: 03/06/23 01:59 Dose: 5 ml Documented By: LAXMI Ceftriaxone Sodium 1 gm/ (Sodium Chloride) 50 mls @ 100 mls/hr IV Q24H [facility] Last Infusion: 03/05/23 15:14 Dose: 0 mls/hr Documented By: MABEL Dextrose (D10) 250 mls @ 750 mls/hr IV Q15M PRN; Protocol PRN Reason: per Hypoglycemia Standing Ord. Insulin Glargine (Insulin Glargine,Hum.Rec.Anlog 100 Unit/Ml 10 Ml Vial) 15 unit SUBCUT DAILY [facility] Last Admin: 03/06/23 07:45 Dose: 15 unit Documented By: MABEL Insulin Human Lispro (Insulin Lispro 100 Unit/Ml 3 Ml Vial) 0 unit SUBCUT QIDACHS [facility]; Protocol Last Admin: 03/06/23 07:45 Dose: 2 unit Documented By: MABEL Insulin Human Lispro (Insulin Lispro 100 Unit/Ml 3 Ml Vial) 5 unit SUBCUT QIDACHS [facility] Last Admin: 03/06/23 07:46 Dose: 5 unit Documented By: MABEL Metoprolol Tartrate (Metoprolol Tartrate 50 Mg Tablet) 50 mg PO BID [facility]; Pro tocol Last Admin: 03/06/23 07:44 Dose: 50 mg Documented By: MABEL Mirabegron (Mirabegron 25 Mg Tab.Er.24h) 25 mg PO DAILY [facility] Last Admin: 03/06/23 07:44 Dose: 25 mg Documented By: MABEL Pt Own (Abiraterone (500 Mg Tablet)) 500 mg PO BID [facility] Last Admin: 03/06/23 07:44 Dose: 500 mg Documented By: MABEL Oxycodone HCl (Oxycodone Hcl Immed Release 5 Mg Tablet) 5 mg PO QID PRN PRN Reason: Pain, Severe (Pain Scale 7-10) Pharmacy Consult (Consult Rx Perform Med Rec) 1 each MISCELLANE ONCE PRN PRN Reason: Consult order Prednisone (Prednisone 5 Mg Tablet) 5 mg PO BID [facility] Last Admin: 03/06/23 07:44 Dose: 5 mg Documented By: MABEL Sitagliptin Phosphate (Sitagliptin Phosphate 25 Mg Tablet) 25 mg PO DAILY [facility] Last Admin: 03/06/23 07:44 Dose: 25 mg Documented By: MABEL Sodium Chloride (0.9 % Sodium Chloride Flush 3 Ml Syringe) 3 ml IVFLUSH QSHIFT [facility] Last Admin: 03/06/23 07:46 Dose: Not Given Documented By: MABEL Non-Admin Reason: IV Running Labs 03/06/23 05:16 03/06/23 05:16 Labs: Laboratory Results - last 24 hr 03/05/23 03/05/23 03/05/23 11:11 15:53 20:11 MCV MCH MCHC RDW Plt Count MPV Absolute Nucleated RBC Nucleated RBC % (auto) Anion Gap Estim Creat Clear Calc Estimated GFR POC Glucose 376 H* 185 H 355 H* Fasting Glucose Calcium 03/06/23 03/06/23 03/06/23 05:16 05:16 07:03 MCV 94.0 MCH 30.5 MCHC 32.4 RDW 18.2 H Plt Count 213 MPV 9.6 Absolute Nucleated RBC 0.000 Nucleated RBC % (auto) 0.0 Anion Gap 11 L Estim Creat Clear Calc 44.5 Estimated GFR 50 POC Glucose 193 H Fasting Glucose 209 H Calcium 8.7 Microbiology Microbiology Results: Microbiology 03/03/23 15:03 Urine Culture - Preliminary Urine clean catch - Clean Catch Midstream Coag negative Staphylococcus 03/03/23 15:20 Blood Culture - Preliminary Blood - Venous Gram negative jamarcus 03/03/23 15:19 Blood Culture - Preliminary Blood - Venous Gram negative jamarcus Assessment and Plan (1) LAURA (acute kidney injury): Status: Acute Plan 77M PMH prostace cancer with bone mets, CAD, paroxysmal afib, CKD II, hld, htn, DM, presented with bilateral leg weakness and LAURA bilateral leg weakness likely multifactorial - deconditioning due to metastatic prostate ca in setting of uti with bacteremia and peripheral neuropathy for DM with hyperglycemia ?paraneoplastic - neuro eval appreciated - more likely diabetic neuropathy MRI negative for cord compression, so steroid stopped PT eval - recommending home vs snf - patient would prefer PT at home urinary retention complicated by acute pyelonephritis complicated by GNR bacteremia--sensitivity pending zapata cath placed by ZHANNA nunez, follow up cultures id consult laura on CKD II, improving, Cr 1.8 to 1.3 now due to dehydration and urinary retention Stop IVF today and continue moniting renal function paroxysmal afib eliquis, metoprolol DM with hyperglycemia and peripheral neuropathy expect improvement now steroids discontinued basal bolus insulin, monitor pocs may need insulin at home CAD eliquis, statin dvt prophylaxis - eliquis DNR/DNI reason for continued hospitalization: bacteremia, awaiting cultures and sens itivity, ivf for laura and possible placement Time Spent With Patient Time: Total time managing care of this patient today ____ minutes. Quality Stroke Does the patient have a stroke diagnosis?: No VTE Prior VTE?: No VTE Risk Level:: Medical - moderate - high VTE Device Contraindication: Treatment Not Indicated VTE Drug Contraindication: N/A - Med Ordered
--- NOTE | 2023-03-06 09:29 | MHC.CLN ---
F/U DIET=DIABETIC 2200 KCALS. ENSURE BID PROVIDES ADDITIONAL 700 KCALS. 40 G PROTEIN. SUPPLEMENT ADDED TO IMPROVE NUTRITIONAL INTAKE. POC ELEVATED, [phone]. RECEIVES INSULIN AND JANUVIA; STEROIDS DISCONTINUED. INTAKE APPEARS VERY GOOD, USUALLY 75-100%. FOLLOW FOR INTAKE AND BLOOD SUGARS.
[2023-03-06 11:18] LABS: Glucose, Whole Blood 295 mg/dL (60-115)
--- NOTE | 2023-03-06 12:39 | MHC.CM.PN ---
Per MD rounds no discharge today. An ID consult is ordered. Patient +UTI Bacteremia. DP home with new [facility]. Pt's will provide transportation home.
[2023-03-06 13:43] VITALS: BP 133/75; PULSE 93; O2SAT 95
[2023-03-06] MEDS: cefTRIAXone sodium 1 GM in 0.9 % Sodium Chloride 50 ML IV (14:15)
[2023-03-06 15:12] VITALS: BP 110/67; PULSE 89; RESP 18; TEMP 36.5; O2SAT 97
[2023-03-06 16:04] LABS: Glucose, Whole Blood 251 mg/dL (60-115)
[2023-03-06] MEDS: 0.9 % Sodium Chloride Flush 3 ML SYRINGE IVFLUSH (16:24)
--- NOTE | 2023-03-06 16:42 | W.PM.IDCN ---
History of Present Illness Data of Consult Service Date: 03/06/23 Requesting physician: Luis F Miles Primary Care Provider: MD AMANDA Davis Reason for consult: bacteremia He presents with weakness and inability to walk. He has no fever or chills at this time. He has Klebsiella pneumonia bacteremia. Urine does not show culture. Review of Systems Review of Systems: Yes all other systems are reviewed and are negative [facility] Past Medical History Medical History (Updated 03/06/23 @ 16:46 by Yolanda Mcgee MD) Bacteremia Elevated PSA Prostate cancer Urgency incontinence Family History Family history: reviewed and not pertinent Surgical History Surgical History History of cystoscopy History of prostatectomy Social History Social History Household Members: Spouse Housing: House Do you presently have visiting nurse or other home services: No Patient Tobacco Use Status: Never used Tobacco service: No Current occupational status: retired [employer] Allergies Allergy/AdvReac Type Severity Reaction Status Date / Time bee pollen [BEE STINGS] Allergy Severe ANAPHYLAXIS Verified 12/11/22 11:40 leuprolide [From Lupron] AdvReac Unknown REACTION Verified 12/11/22 11:40 TO BRAND NAME LUPRON, OTHER BRANDS [place] bee stings Allergy Unknown anaphylaxis Uncoded 12/11/22 11:40 Active Medications: Current Medications Acetaminophen (Acetaminophen 325 Mg Tablet) 650 mg PO Q8H PRN PRN Reason: Pain, Mild (Pain Scale 1-3) Last Admin: 03/04/23 21:45 Dose: 650 mg Apixaban (Apixaban 5 Mg Tablet) 5 mg PO BID [facility] Last Admin: 03/06/23 07:44 Dose: 5 mg Atorvastatin Calcium (Atorvastatin Calcium 40 Mg Tablet) 40 mg PO BEDTIME ALEJANDRA Last Admin: 03/05/23 20:35 Dose: 40 mg Finasteride (Finasteride 5 Mg Tablet) 5 mg PO DAILY [facility] Last Admin: 03/06/23 07:44 Dose: 5 mg Glucose (Glucose Gel 15 Gm Gel..Gram.) 15 gm PO Q15M PRN; Protocol PRN Reason: per Hypoglycemia Standing Ord. Guaifenesin/Dextromethorphan (Guaifenesin Dm 100/10/5 Ml 5 Ml Syrup) 5 ml PO Q4H PRN PRN Reason: cough Last Admin: 03/06/23 01:59 Dose: 5 ml Ceftriaxone Sodium 1 gm/ (Sodium Chloride) 50 mls @ 100 mls/hr IV Q24H [facility] Last Infusion: 03/06/23 15:16 Dose: Infused Dextrose (D10) 250 mls @ 750 mls/hr IV Q15M PRN; Protocol PRN Reason: per Hypoglycemia Standing Ord. Insulin Glargine (Insulin Glargine,Hum.Rec.Anlog 100 Unit/Ml 10 Ml Vial) 15 unit SUBCUT DAILY [facility] Last Admin: 03/06/23 07:45 Dose: 15 unit Insulin Human Lispro (Insulin Lispro 100 Unit/Ml 3 Ml Vial) 0 unit SUBCUT QIDACHS [facility]; Protocol Last Admin: 03/06/23 16:24 Dose: 6 unit Insulin Human Lispro (Insulin Lispro 100 Unit/Ml 3 Ml Vial) 5 unit SUBCUT QIDACHS [facility] Last Admin: 03/06/23 16:24 Dose: 5 unit Metoprolol Tartrate (Metoprolol Tartrate 50 Mg Tablet) 50 mg PO BID [facility]; Protocol Last Admin: 03/06/23 07:44 Dose: 50 mg Mirabegron (Mirabegron 25 Mg Tab.Er.24h) 25 mg PO DAILY [facility] Last Admin: 03/06/23 07:44 Dose: 25 mg Pt Own (Abiraterone (500 Mg Tablet)) 500 mg PO BID [facility] Last Admin: 03/06/23 07:44 Dose: 500 mg Oxycodone HCl (Oxycodone Hcl Immed Release 5 Mg Tablet) 5 mg PO QID PRN PRN Reason: Pain, Severe (Pain Scale 7-10) Pharmacy Consult (Consult Rx Perform Med Rec) 1 each MISCELLANE ONCE PRN PRN Reason: Consult order Prednisone (Prednisone 5 Mg Tablet) 5 mg PO BID [facility] Last Admin: 03/06/23 07:44 Dose: 5 mg Sitagliptin Phosphate (Sitagliptin Phosphate 25 Mg Tablet) 25 mg PO DAILY [facility] Last Admin: 03/06/23 07:44 Dose: 25 mg Sodium Chloride (0.9 % Sodium Chloride Flush 3 Ml Syringe) 3 ml IVFLUSH QSHIFT [facility] Last Admin: 03/06/23 16:24 Dose: 3 ml Home Medications Medication Instructions Recorded Confirmed Last Taken Type apixaban 5 mg tablet 5 mg PO BID 10/07/20 03/04/23 Unknown History metoprolol tartrate 50 mg tablet 75 mg PO BID 10/07/20 03/04/23 Unknown History rosuvastatin 40 mg tablet 40 mg PO DAILY 10/07/20 03/04/23 Unknown History sitagliptin phosphate 25 mg tablet 25 mg PO DAILY 10/07/20 03/04/23 Unknown History metformin 850 mg tablet 850 mg PO DAILY 03/03/23 03/04/23 Unknown History oxycodone 5 mg tablet 5 mg PO QID PRN Pain 03/03/23 03/04/23 Unknown History abiraterone 500 mg tablet 500 mg PO BID 03/04/23 03/04/23 Unknown History albuterol sulfate 90 mcg/actuation 2 puff inhalation Q6H PRN Wheezing 03/04/23 03/04/23 Unknown History aerosol inhaler fluticasone propionate 50 1 spray intranasal DAILY 03/04/23 03/04/23 Unknown History mcg/actuation nasal spray,suspension prednisone 5 mg tablet 5 mg PO BID 03/04/23 03/04/23 Unknown History Physical Exam Vital Signs: Vital Signs: Last Vital Signs Temp 97.7 F 03/06/23 15:12 Pulse 89 03/06/23 15:12 Resp 18 03/06/23 15:12 BP 110/67 03/06/23 15:12 Pulse Ox 97 03/06/23 15:12 O2 Del Method Room Air 03/06/23 15:12 BMI result Body Mass Index 20.8 Const: General: cooperative HEENT: Head: Yes normal to inspection Face and sinus: Yes normal facial exam Mouth: Normal oral and palatal mucosa present Teeth and gingiva: dentition normal Eyes: General: appearance normal, both eyes and all related structures Pupils: Equal, round and reactive pupils present Resp: Effort & Inspection: normal respiratory effort Cardio: Rate: regular rate Rhythm: regular rhythm GI: Palpation (GI): Soft to palpation and nontender : General: Yes no CVA tenderness Back/Spine/Pelvis: Back: no CVA tenderness Skin: General skin exam: no rashes or lesions noted Neuro: General: moves all extremities Cranial nerves: Yes Equal, round and reactive pupils present Extrem: Other: weakness legs General: Yes normal to inspection Psych: Appearance: grossly normal Results Labs 03/06/23 05:16 03/06/23 05:16 Labs: Short CBC 03/06/23 Range/Units 05:16 WBC 6.8 (4.8-10.8) X10*3/uL Hgb 9.7 L (14.0-18.0) g/dl Hct 29.9 L (42.0-52.0) % Plt Count 213 (160-400) X10*3/uL BMP 03/06/23 05:16 Sodium 140 Potassium 4.2 Chloride 109 H Carbon Dioxide 24 BUN 29 H Creatinine 1.38 Calcium 8.7 Microbiology Microbiology Results: Microbiology 03/03/23 15:20 Blood - Venous Blood Culture - Final Klebsiella pneumoniae 03/03/23 15:19 Blood - Venous Blood Culture - Final Klebsiella pneumoniae 03/03/23 15:03 Urine clean catch - Clean Catch Midstream Urine Culture - Preliminary Coag negative Staphylococcus Assessment and Plan (1) Bacteremia: Status: Acute He has Klebsiella bacteremia He has probable urine source There is no specific source found in urine yet. Plan Continue Ceftriaxone until improved and then po Ceftin 500 mg bid for 14 days. Follow Urology. Time Spent With Patient Time: Total time managing care of this patient today ____ minutes.
[2023-03-06 19:16] VITALS: BP 118/65; PULSE 98; RESP 18; TEMP 36.4; O2SAT 97
[2023-03-06 20:25] LABS: Glucose, Whole Blood 360 mg/dL (60-115)
[2023-03-06] MEDS: Atorvastatin Calcium 40 MG TABLET PO (20:53)
[2023-03-07] MEDS: 0.9 % Sodium Chloride Flush 3 ML SYRINGE IVFLUSH ×2 (00:07→08:04)
[2023-03-07 03:12] VITALS: BP 152/79; PULSE 100; RESP 16; TEMP 36.2; O2SAT 98
[2023-03-07] MEDS: guaiFENesin DM 100/10/5 ML 5 ML SYRUP PO (04:47)
[2023-03-07 07:37] LABS: Glucose, Whole Blood 241 mg/dL (60-115)
[2023-03-07 07:46] VITALS: BP 129/84; PULSE 104; RESP 18; TEMP 36.8; O2SAT 94
[2023-03-07] MEDS: Insulin Glargine,Hum.rec.anlog 100 UNIT/ML 10 ML VIAL 15 UNIT SUBCUT (07:59)
[2023-03-07] MEDS: Insulin Lispro 100 UNIT/ML 3 ML VIAL SUBCUT ×2 (07:59→08:00)
[2023-03-07] MEDS: Finasteride 5 MG TABLET PO (08:02)
[2023-03-07] MEDS: ABIRATERONE 500 MG 500 EACH PO (08:02)
[2023-03-07] MEDS: SITagliptin Phosphate 25 MG TABLET PO (08:02)
[2023-03-07] MEDS: Metoprolol Tartrate 50 MG TABLET PO (08:03)
[2023-03-07] MEDS: Apixaban 5 MG TABLET PO (08:03)
[2023-03-07] MEDS: predniSONE 5 MG TABLET PO (08:03)
[2023-03-07] MEDS: Mirabegron 25 MG TAB.ER.24H PO (08:05)
--- NOTE | 2023-03-07 11:21 | P.F2F_ITS ---
Service Date Service Date: 03/07/23 Encounter Date of encounter: 03/07/23 Reasons for Services Signs and symptoms assessed: PHysical deconditioning peripheral neuropathy Reason for correction: medication treatment and teach disease management Reason for physical therapy: home safety and mobility and therapeutic exercises Homebound: Leaving the home is medically contraindicated at this time without the asist of a device and/or another person due th the listed conditions above and below. Reason homebound: unsteady gait / fall risk Certification: Based on the above findings, I certify that this patient is confined to the home and needs intermittent correction care, physical therapy and/or speech therapy, or continues to need occupational therapy. The patient is under my care, and I have initiated the establishment of the plan of care. The patient will be followed by a physician who will periodically review the plan of care. Time Spent With Patient Time: Total time managing care of this patient today ____ minutes.
[2023-03-07 11:22] LABS: Glucose, Whole Blood 206 mg/dL (60-115)
--- NOTE | 2023-03-07 11:23 | PM.DS ---
DS: Providers Provider Date of Service: 03/07/23 Date of admission: 03/03/23 16:41 Primary care physician: Oh Osman MD Consults: 03/03/23 16:37 Consult to Urology Routine Consulting Provider: Venus Weems Reason for consultation: urinary retention, unable to get zapata, prostate ca 03/04/23 12:54 Consult to Neurology Routine Consulting Provider: [facility] Reason for consultation: LE weakness, in metastatic prostate 03/06/23 07:47 Consult to Infectious Diseases Routine Consulting Provider: [facility] Infectious Disease Reason for consultation: bacteremia Has provider been notified: No DS: Diagnosis Discharge Diagnosis (1) Bacteremia: Status: Acute DS: Summary Hospital Course Hospital Course: Admission note HPI 77M PMH prostace cancer with bone mets, CAD, paroxysmal afib, CKD II, hld, htn, DM, presented with bilateral leg weakness. patient reports progressive bilateral lower extremity weakness over past few weeks day of presentation was worse and unable to get up from chair. also reporting some consitpation, leg numbness, increased back pain. in ED noted to have urinary retention wtih 1200cc on bladder scan, straight cath so far drained >500cc. indwelling was unable to be placed. Hospital course The patient was admitted for evaluation of bilateral leg weakness. seems to be multifactorial; deconditioning due to metastatic prostate ca , Having UTI with bacteremia and peripheral neuropathy for DM with hyperglycemia. MRI was done and came back negative for cord compression as he was evaluated by neurologist who believed his symptoms are likely from diabetic neuropathy. symptoms improved back to his baseline as he was Evaluated by PT who recommended SNF but patient prefers to go home with VNA. Noted to have urinary retention complicated by acute pyelonephritis complicated by Klebsiella P bacteremia. Urine grew Staph Warneri. zapata cath placed by who recommended to follow in 2 weeks. Treated with IV Ceftriaxone during hospital stay. ID evaluated the patient and recommended Ceftin at first but as urine culture came back positive for a 2nd bacteria Dr Mcgee recommended Bactrim DS for 2 weeks. Noted to have yohana on CKD II, improved with resolution of retention and dehydration. Cr 1.8 to 1.3 around baseline. To repeat BMP as outpatient. Has DM with hyperglycemia and peripheral neuropathy. expect improvement when steroids discontinued. Will need closer monitoring at home and further adjustments of meds by PCP. 14 more days of oral antibiotics as outpatient home with VNA for therapy To repeat blood test next week follow with urologist in 2 weeks Monitor blood sugar at home for next week 3 times daily and report readings to PCP to adjust your meds as needed. Time Spent with Patient Time attestation: Total time managing care of this patient today ____ minutes. Discharge coordination time: Greater than 30 minutes Quality: Safe Use of Opioids Does Pt have an Active Cancer Diagnosis on the Problem List?: Yes Opioid Measure Date for [facility] Report: 02/05/23 Opioid Measure Time for [facility] Report: 16:58 Quality: Stroke Does the patient have a stroke diagnosis?: No Physical Exam Vital Signs: Vital Signs: Last Vital Signs Temp 98.3 F 03/07/23 07:46 Pulse 104 H 03/07/23 07:46 Resp 18 03/07/23 07:46 BP 129/84 03/07/23 07:46 Pulse Ox 94 03/07/23 07:46 O2 Del Method Room Air 03/07/23 07:46 BMI result Body Mass Index 20.8 DS: Data Data Completed and Pending Labs on day of discharge: Laboratory Results - last 24 hr 03/06/23 03/06/23 03/07/23 15:50 20:21 07:24 POC Glucose 251 H 360 H* 241 H 03/07/23 11:17 POC Glucose 206 H Imaging MRI: Radiologist's impression: ITS Impressions Lumbar Spine MRI 03/03/23 19:05 IMPRESSION: - The superior endplate of the L4 vertebral body is moderately depressed. This superior endplate deformity was present on the 02/28/2022 lumbar spine radiographs but appears to have progressed slightly. Mild increased T2 signal within the posterior aspect of the superior endplate suggesting more acute component to this endplate deformity. There is no retropulsion of bone into the spinal canal. - There is mild compression deformity of the anterior aspect of the inferior endplate of the T12 vertebral body. - There are enhancing metastasis within the T11 vertebral body, T12 vertebral body, L1 vertebral body, L2 vertebral body, L3 vertebral body, and L5 vertebral body. There are enhancing metastasis within the posterior elements at the L5 level on the right. There are enhancing metastasis throughout the sacrum. -There is mild to moderate lumbar spondylosis. There is no compromise of the spinal canal. There is mild to moderate multilevel foraminal narrowing without nerve root impingement. Abdomen/Pelvis CT 03/04/23 11:20 IMPRESSION: Constipation. Severe diverticulosis. No evidence of diverticulitis. Duplicated bilateral renal collecting systems. Small bilateral renal stones. Cortical thinning or scarring of the left kidney. Post prostatectomy. Penile implant. Metastatic disease to the bones. Fleischner guidelines were followed. Discharge Plan Discharge Anticipated Discharge Date/Time: 03/07/23 11:13 Patient Disposition: Home Health Service Discharge Diagnosis: Klebsiella bacteremia Peripheral neuropathy physical deconditioning Referrals: Dave SADLER [Outside] - 1 Week Physician,None [Physician] - 1 Week Discharge Medications: New sulfamethoxazole-trimethoprim 800-160 mg tablet 1 tab PO BID Qty: 28 0RF Continued finasteride 5 mg tablet 5 mg PO DAILY 90 Days Qty: 90 2RF metformin 850 mg tablet 850 mg PO DAILY oxycodone 5 mg tablet 5 mg PO QID PRN (Reason: Pain) fluticasone propionate 50 mcg/actuation [place],Suspension 1 spray INTRANASAL DAILY Rx Instructions: administer into each nostril prednisone 5 mg tablet 5 mg PO BID abiraterone 500 mg tablet 500 mg PO BID albuterol sulfate 90 mcg/actuation Hfa Aerosol Inhaler 2 puff INHALATION Q6H PRN (Reason: Wheezing) sitagliptin phosphate 25 mg tablet 25 mg PO DAILY metoprolol tartrate 50 mg tablet 75 mg PO BID Rx Instructions: 25mg po bid apixaban 5 mg tablet 5 mg PO BID rosuvastatin 40 mg tablet 40 mg PO DAILY mirabegron 25 mg tablet extended release 24 hr 25 mg PO DAILY 30 Days Qty: 30 1RF Discharge Orders: Discharge Order (Routine); Ordered 03/07/23 Ordered By: Rey Martin Diet: Advance to usual diet Activity on Discharge: As tolerated Stand Alone Forms: Patient Portal Discharge page Other Ambulatory Orders: Basic Metabolic Panel (Routine) Timeframe: 1 Week Facility: [facility] - Location: Laboratory Ordered By: Rey Martin Care Plan Goals: Read below Health Concerns: Read below Plan of Treatment: Read below Assessment: You were admitted to the hospital for evaluation of weakness in lower extremities and evidence of kidney injury. Found to have blood infection with bacteria called Klebsiella likely coming from urine. You were also noted to have urine retention. You were treated with antibiotics with good response for the infection. still need 14 more days of oral antibiotics as outpatient. Evaluated by neurologist as MRI was done showing no evidence of spinal cord problems. improved with treatment of infection. PT recommended rehab but you prefer to go home with VNA. Kidney function improved as a zapata catheter was placed by urologist. To repeat blood test next week and follow with urologist in 2 weeks Discharge plan: 14 more days of oral antibiotics as outpatient home with VNA for therapy To repeat blood test next week follow with urologist in 2 weeks Monitor blood sugar at home for next week 3 times daily and report readings to PCP to adjust your meds as needed. Discharge Date/Time: 03/07/23 11:51
--- NOTE | 2023-03-07 11:48 | MHC.CM.PN ---
PATIENT IS DC HOME WITH NEW [facility] SERVICES AND PATIENT AWARE IMM 03/07 IN CHART
== END 2023-03-07 11:51 | disposition home health service (06) | DRG 690 ==
LOC: HO.ED 16:05 → HO.EDOVER 16:50 → HO.S3 17:29
PROVIDERS: Internal Medicine; Admitting Provider Internal Medicine; Emergency Provider Student in an Organized Health Care Education/Training Program; PCP Internal Medicine; Visit Provider Student in an Organized Health Care Education/Training Program
DX: N10 Acute pyelonephritis (principal); C79.51 Secondary malignant neoplasm of bone; E44.0 Moderate protein-calorie malnutrition; Z68.1 Body mass index [BMI] 19.9 or less, adult; R78.81 Bacteremia; N17.9 Acute kidney failure, unspecified; Z66 Do not resuscitate; E86.0 Dehydration; R33.9 Retention of urine, unspecified; I48.0 Paroxysmal atrial fibrillation; I25.10 Atherosclerotic heart disease of native coronary artery without angina pectoris; I12.9 Hypertensive chronic kidney disease with stage 1 through stage 4 chronic kidney disease, or unspecified chronic kidney disease; B96.1 Klebsiella pneumoniae [K. pneumoniae] as the cause of diseases classified elsewhere; B95.7 Other staphylococcus as the cause of diseases classified elsewhere; C61 Malignant neoplasm of prostate; N18.2 Chronic kidney disease, stage 2 (mild); E11.22 Type 2 diabetes mellitus with diabetic chronic kidney disease; Z79.51 Long term (current) use of inhaled steroids; Z79.84 Long term (current) use of oral hypoglycemic drugs; Z79.899 Other long term (current) drug therapy
CPT/HCPCS: 36415; 72158; 72170; 74176; 80048; 80053; 81001; 82947; 83605; 85025; 85027; 85610; 87040; 87077; 87086; 87088; 87186; 87205; 97116; 97162; 99284; A9585; C1758; J0696; J1100

== ENCOUNTER 2023-03-14 11:55 | Outpatient (REF) | payer MEDICARE, SELFPAY ==
[2023-03-14 15:08] LABS: Anion Gap 12 (12-20); Blood Urea Nitrogen 19 mg/dL (9-16); Calcium 9.3 mg/dL (8.4-10.2); Carbon Dioxide 24 mmol/L (22-29); Chloride 103 mmol/L (96-108); Estimated Glomerular Filt Rate 60; Potassium 4.7 mmol/L (3.3-5.1); Sodium 134 mmol/L (135-145)
[2023-03-14 17:58] LABS: Glucose Random 199 mg/dL (60-115)
== END 2023-03-14 11:56 | disposition home or self-care (01) ==
LOC: HO.HVNA 11:55
PROVIDERS: PCP Internal Medicine Medical Oncology; Visit Provider Internal Medicine Medical Oncology
DX: C61 Malignant neoplasm of prostate (principal)
CPT/HCPCS: 36415; 80048

== ENCOUNTER → 2023-05-10 11:15 | Outpatient (BNV) | payer MEDICARE, SELFPAY | PROVIDERS: PCP Internal Medicine Medical Oncology; Visit Provider Internal Medicine | DX: C61 Malignant neoplasm of prostate (principal); C79.51 Secondary malignant neoplasm of bone | CPT/HCPCS: 99204; 99214 ==

== ENCOUNTER 2023-05-14 11:09 | Outpatient (AMB) | payer MEDICARE, SELFPAY ==
--- NOTE | 2023-05-14 11:10 | A.OFFVIS_ITS ---
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 Patient c/o; reports no changes at this time. Bio Medical Technician Required: No Accompanied by: Other Relationship Allergies bee pollen [BEE STINGS] Allergy (Severe, Verified 05/14/23 11:10) ANAPHYLAXIS leuprolide [From Lupron] Adverse Reaction (Unknown, Verified 05/14/23 11:10) REACTION TO BRAND NAME LUPRON, OTHER BRANDS [place] bee stings Allergy (Unknown, Uncoded 05/14/23 11:10) anaphylaxis HPI HPI Comments History of Present Illness Details Patient presents with his for consultation for Port-A-Cath placement for treatment of metastatic prostate cancer. Chart was reviewed and patient evaluated. Patient receives 1/2 tablet b.i.d. of Eliquis. He took this morning's dose only so far today. [facility] Medical History (Updated 05/14/23 @ 08:37 by Vera Goff [facility]) Bacteremia Elevated PSA Metastatic cancer Multifactorial gait disorder Peripheral neuropathy Prostate cancer Prostate cancer metastatic to bone Urgency incontinence Surgical History History of cystoscopy History of prostatectomy Hx of heart artery stent Family History Daughter Breast cancer Social History Household Members: Spouse Housing: House Do you presently have visiting nurse or other home services: No Patient Tobacco Use Status: Former Tobacco user service: No Current occupational status: retired Physical Exam Vital Signs: Last Vital Signs Pulse 114 H 05/14/23 11:16 BP 113/61 05/14/23 11:16 Const Other: Elderly thin male. Chest Other: Chest breath sounds bilaterally, HS 1 in 2 GI Other: Abdomen soft Skin Other: Ecchymosis of skin throughout upper extremities Assessment & Plan Assessment & Plan (1) Encounter for insertion of tunneled central venous catheter (CVC) with port: Code(s): Z45.2 - Encounter for adjustment and management of vascular access device Plan Risks, benefits, alternatives of port placement reviewed with the patient his included but not limited to bleeding, infection, pneumothorax, numbness, pa in, scarring, catheter dislodgement and the patient wishes to proceed. All questions were answered. We will arrange for port placement on a day which is convenient for the patient and coordinate this with his Eliquis being held prior to procedure. Coding Level of Care Code New Pt Level 4 (50883) Diagnoses Encounter for insertion of tunneled central venous catheter (CVC) with port Z45.2
[2023-05-14 11:16] VITALS: BP 113/61; PULSE 114
== END 2023-05-14 11:25 | disposition home or self-care (01) ==
PROVIDERS: PCP Internal Medicine Medical Oncology; Referring Provider Internal Medicine; Visit Provider Surgery
DX: Z45.2 Encounter for adjustment and management of vascular access device (principal)
CPT/HCPCS: 99204

== ENCOUNTER → 2023-05-14 11:09 | Outpatient (BNVA) | payer MEDICARE, SELFPAY | PROVIDERS: PCP Internal Medicine Medical Oncology; Visit Provider Surgery | DX: Z45.2 Encounter for adjustment and management of vascular access device (principal) | CPT/HCPCS: 99202 ==

== ENCOUNTER 2023-05-17 07:08 | Day surgery (SDC) | payer MEDICARE, SELFPAY ==
--- NOTE | 2023-05-16 10:36 | HO.ANESPROP2 ---
HPI - Anesthesia Eval Consult details Narrative: 78yo M for Port-a-Cath placement , fluoroscopy, doppler u/s Chemo for Prostate CA Eliquis for afib Fentanyl patch PMFSH Active Problems Active Problems: All Active Problems (Updated 05/14/23 @ 08:37 by Vera Goff [facility]) Encounter for insertion of tunneled central venous catheter (CVC) with port (Acute) Skin mole (Acute) Rising PSA following treatment for malignant neoplasm of prostate (Acute) Osteopenia due to cancer therapy (Acute) Wound, open, forearm (Acute) Prostate cancer metastatic to bone (Chronic) Urgency incontinence (Acute) Past Medical History Medical History (Updated 05/14/23 @ 08:37 by Vera Goff [facility]) Bacteremia Elevated PSA Metastatic cancer Multifactorial gait disorder Peripheral neuropathy Prostate cancer Prostate cancer metastatic to bone Urgency incontinence Family History Family History Daughter Breast cancer Surgical History Surgical History History of cystoscopy History of prostatectomy Hx of heart artery stent Social History Social History Household Members: Spouse Housing: House Do you presently have visiting nurse or other home services: No Patient Tobacco Use Status: Former Tobacco user service: No Current occupational status: retired Meds Allergies Allergy/AdvReac Type Severity Reaction Status Date / Time bee pollen [BEE STINGS] Allergy Severe ANAPHYLAXIS Verified 05/14/23 11:10 leuprolide [From Lupron] AdvReac Unknown REACTION Verified 05/14/23 11:10 TO BRAND NAME LUPRON, OTHER BRANDS [place] bee stings Allergy Unknown anaphylaxis Uncoded 05/14/23 11:10 Home Medications Medication Instructions Recorded Confirmed Last Taken Type apixaban 5 mg tablet 5 mg PO BID 10/07/20 05/14/23 Unknown History rosuvastatin 40 mg tablet 40 mg PO DAILY 10/07/20 05/14/23 Unknown History sitagliptin phosphate 25 mg tablet 25 mg PO DAILY 10/07/20 05/14/23 Unknown History metformin 850 mg tablet 850 mg PO DAILY 03/03/23 05/14/23 Unknown History oxycodone 5 mg tablet 5 mg PO QID PRN Pain 03/03/23 05/14/23 Unknown History abiraterone 500 mg tablet 500 mg PO BID 03/04/23 05/14/23 Unknown History albuterol sulfate 90 mcg/actuation 2 puff inhalation Q6H PRN Wheezing 03/04/23 05/14/23 Unknown History aerosol inhaler fluticasone propionate 50 1 spray intranasal DAILY 03/04/23 05/14/23 Unknown History mcg/actuation nasal spray,suspension prednisone 5 mg tablet 5 mg PO BID 03/04/23 05/14/23 Unknown History fentanyl 50 mcg/hr transdermal 1 patch topical Q3D 05/10/23 05/14/23 Unknown History patch metoprolol tartrate 25 mg tablet 12.5 mg PO DAILY 05/10/23 05/14/23 Unknown History Exam Exam Date and Time: May 16, 2023 1036 Assessment and Plan Assessment Anesthesia Assessment: Chart Reviewed
--- NOTE | 2023-05-16 16:17 | MHC.SHP ---
Pre-Procedural Eval Section A Date of Service: 05/16/23 The patient is an INPATIENT: No Changes since office visit: No Cold of Flu in the past 2 weeks, No New Medical Problems, No Changes in Medication and No Patient answered all questions The History & Physical has been completed within 30 days and I have reviewed it.: Yes Section B Chief Complaint: Encounter for adjustment and management of vascula Allergies: Allergies Allergy/AdvReac Type Severity Reaction Status Date / Time bee pollen [BEE STINGS] Allergy Severe ANAPHYLAXIS Verified 05/14/23 11:10 leuprolide [From Lupron] AdvReac Unknown REACTION Verified 05/14/23 11:10 TO BRAND NAME LUPRON, OTHER BRANDS [place] bee stings Allergy Unknown anaphylaxis Uncoded 05/14/23 11:10 Plan I have reviewed the history and physical and performed a pertinent physical examination on my patient. No changes have occurred unless specified. Time Spent With Patient Time: Total time managing care of this patient today ____ minutes.
[2023-05-17] VITALS (10 sets, daily range): BP systolic 114–138; BP diastolic 63–80; PULSE 95–175; RESP 16–18; TEMP 36.1–36.4; O2SAT 98–100; BMI 20.4
--- NOTE | ~2023-05-17 | FL_ITS ---
EXAMINATION: XR FLUOROSCOPY WITH IMAGES CLINICAL INFORMATION: Insertion of a Port-A-Cath. COMPARISON: None available. TECHNIQUE: Fluoroscopy Supervised By: Dr. Sudhakar Bruner. Fluoroscopy Time: 3.9 seconds. Cumulative Dose: 0.45 mGy. DAP: N/A Images: 1. FINDINGS: There is a right jugular port with tip projecting over the SVC. FL/FL guidance in OR IMPRESSION: Fluoroscopy guidance for Port-A-Cath placement.
--- NOTE | 2023-05-17 08:03 | PM.EVENT ---
Event Note Date of Service: 05/17/23 Event Note: Patient in rapid Afib for a port with history of metastatic disease. Dr. Radford consulted and he asked me to put an order for Digoxin 0.5mg IVP while he does a bedside echo. Time Spent With Patient Time: Total time managing care of this patient today ____ minutes.
--- NOTE | 2023-05-17 08:45 | PC.NURSE ---
pt found to be in rapid afib. after anesthesia, dr valenzuela and dr arellano eval'd, pt being done still but under local only. no anesthesia and heart rate to be treated after. informed at bedside also. Dionne aware of plan after becoming involved. adan did an echo at bedside also.
[2023-05-17 08:56] LABS: Glucose, Whole Blood 160 mg/dL (60-115)
[2023-05-17] MEDS: Digoxin 0.5 MG/2 ML AMPUL IVPUSH (09:39)
--- NOTE | 2023-05-17 09:49 | P.OP_ITS ---
Operative Note Operative Note Date of Service: 05/17/23 Narrative: Preoperative diagnosis: []Metastatic prostate cancer Postop diagnosis: [] same Procedure [] right internal jugular vein Port-A-Cath placement with Doppler ultrasound guidance and fluoroscopy Surgeon: [] Franc Hasher Machine Operator: [] sky Carmichael Type of Anesthesia: [] local Indication for surgery: [] chemotherapy Findings: [] patient is brought to the operating room, placed on the operating table in a supine position, after adequate level of local anesthesia was induced, the right neck and chest were prepped and draped in usual sterile fashion. Using Doppler ultrasound guidance, the right internal jugular vein was identified and cannulated using Seldinger technique. A wire was advanced to the level of the superior vena cava under fluoroscopic guidance. A pocket was fashioned approximately 4 fingerbreadths below the cannulation site and tunneled to the wire. Catheter was passed through the subcutaneous tunnel, connected to the port, and port Was secured to the pocket using 3-0 Vicryl sutures. Dilating sheath is then placed over the wire again under fluoroscopic guidance and wire retrieved. The pre have Flush catheter was advanced over the dilating sheath to the level of superior vena cava. Peel-away sheath was removed Without incident. Antegrade and retrograde flow recently established. The wound was irrigated, secured hemostasis, and closed using interrupted inverted dermal 3-0 Vicryl sutures followed by Steri-Strips and sterile dressings. Sponge, needle, instrument counts reported correct. Patient tolerated the procedure well and Was transported to recovery room in stable condition. EBL minimal. Postprocedure x-ray in the. operating room demonstrated no pneumothorax and catheter in good position.
--- NOTE | 2023-05-17 10:40 | W.PM.CCCN ---
History of Present Illness Data of Consult Service Date: 05/17/23 Requesting physician: Justus Farfan Primary Care Provider: Moises Staley MD HPI Reason for consult: Rapid atrial fibrillation 78-year-old rather wasted looking individual who apparently has a underlying metastatic prostate cancer coming in to have a borrowed port placed and was noted to be in atrial fibrillation with a rapid ventricular response rates ranging between 160 and 180 and completely asymptomatic in the supine position awake alert mentating well and we note that he is chronically on metoprolol 12.5 mg and apixaban at 5 mg twice daily on his initial blood work he had what looked like an acute on chronic acute kidney kidney insufficiency with with the probably stage III level and the other notable issue is the anemia which obviously is will is worse than his chronic with a hemoglobin of 8 Bedside echo showing moderate diffuse hypokinesis of just a borderline concentrically hypertrophied ventricle estimated 35% ejection fraction at this heart rate but no significant primary valve or pericardial disease and right heart seem to be okay so I felt that we could certainly restore better function simply by slowing his heart rate down and I recommended preoperatively at that moment because of the time it takes to kick and to give him 0.5 mg of IV digoxin which was not given until after the case was completed so is still waiting for its affect to get on board his current heart rate now while he is asleep is about 140 at somewhat more modest and he is definitely comfortable does not have significant work of breathing Review of Systems Review of Systems: Yes all other systems are reviewed and are negative PMFSH Past Medical History Medical History (Updated 05/17/23 @ 10:47 by Ethan Radford MD) Bacteremia Chronic kidney insufficiency Diabetes Elevated cholesterol Elevated PSA Metastatic cancer Multifactorial gait disorder Myocardial infarction Peripheral neuropathy Prostate cancer Prostate cancer metastatic to bone Type 2 diabetes mellitus Urgency incontinence Family History Family History Daughter Breast cancer Surgical History Surgical History (Updated 05/14/23 @ 11:41 by Sudhakar Bruner MD) History of cystoscopy History of prostatectomy Hx of heart artery stent Social History Social History Household Members: Spouse Housing: House Do you presently have visiting nurse or other home services: No Patient Tobacco Use Status: Former Tobacco user Quit Date: 20 yrs ago Use of substances other than those prescribed or required for medical reasons: No Are you DNR?: No Advance Directives: No Advance Directives Information Provided: Yes service: No Current occupational status: retired Meds Allergies Allergy/AdvReac Type Severity Reaction Status Date / Time bee pollen [BEE STINGS] Allergy Severe ANAPHYLAXIS Verified 05/17/23 08:04 leuprolide [From Lupron] AdvReac Unknown REACTION Verified 05/17/23 08:04 TO BRAND NAME LUPRON, OTHER BRANDS [place] bee stings Allergy Unknown anaphylaxis Uncoded 05/14/23 11:10 Active Medications: Current Medications Lactated Ringer's (Lr) 1,000 mls @ 100 mls/hr IVCONT .Q10H ALEJANDRA Home Medications Medication Instructions Recorded Confirmed Last Taken Type apixaban 5 mg tablet 5 mg PO BID 10/07/20 05/17/23 Unknown History rosuvastatin 40 mg tablet 40 mg PO DAILY 10/07/20 05/17/23 Unknown History sitagliptin phosphate 25 mg tablet 25 mg PO DAILY 10/07/20 05/17/23 Unknown History (Januvia) metformin 850 mg tablet 850 mg PO DAILY 03/03/23 05/17/23 Unknown History albuterol sulfate 90 mcg/actuation 2 puff inhalation Q6H PRN Wheezing 03/04/23 05/17/23 Unknown History aerosol inhaler fluticasone propionate 50 1 spray intranasal DAILY 03/04/23 05/17/23 Unknown History mcg/actuation nasal spray,suspension fentanyl 50 mcg/hr transdermal 1 patch topical Q3D 05/10/23 05/17/23 Unknown History patch metoprolol tartrate 25 mg tablet 12.5 mg PO DAILY 05/10/23 05/17/23 Unknown History mirabegron 25 mg tablet,extended 25 mg PO DAILY 05/17/23 05/17/23 Unknown History release 24 hr (Myrbetriq) Physical Exam Vital Signs: Vital Signs: Last Vital Signs Temp 97.0 F 05/17/23 09:37 Pulse 136 H 05/17/23 10:22 Resp 18 05/17/23 10:22 BP 134/73 05/17/23 10:22 Pulse Ox 98 05/17/23 10:22 O2 Del Method Room Air 05/17/23 10:22 BMI result Body Mass Index 20.4 Rapid heart rate right now over 140 but initially of up to 180 but with the comfortable blood pressure Good cognitive function nonfocal neurologic Bedside echo defining a a borderline hypertrophied ventricle and with a moderate diffuse hypokinesis potentially largely on the dysfunctional basis that is produced by the rapid atrial fibrillation Lungs clear with no adventitious sounds Skin normal no acrocyanosis Abdomen benign no organomegaly Assessment and Plan (1) Rising PSA following treatment for malignant neoplasm of prostate: Status: Acute (2) Osteopenia due to cancer therapy: Status: Acute (3) Wound, open, forearm: Status: Acute (4) Prostate cancer metastatic to bone: Status: Chronic (5) Encounter for insertion of tunneled central venous catheter (CVC) with port: Status: Acute (6) Type 2 diabetes mellitus: Status: Acute (7) Atrial fibrillation with rapid ventricular response: Status: Acute (8) Anemia: Status: Acute (9) Chronic kidney insufficiency: Status: Acute (10) Acute renal insufficiency: Status: Acute Plan So at this point we have rapid atrial fibrillation with secondary dysfunction of the left ventricle the sheriff is very simply to just slow the rate down with something that is durable that he can go home with and then follow-up as an outpatient so I chose IV digoxin initially 0.5 mg x 1 and I am giving him 1 dose of oral metoprolol at 25 mg and will reassess him in about an hour and a half with both drugs get on board to see if anything else needs to be added and then determine a home dose of his medicines In addition because of the increased creatinine recently I am going to allow him to be hydrated and repeat his his blood work to see if the hydration improves his renal insufficiency and also to follow-up on the degree of anemia that we noted 5 days ago Time Spent With Patient Time: Total time managing care of this patient today 45____ minutes.
[2023-05-17] MEDS: Metoprolol Tartrate 25 MG TABLET PO (10:53)
[2023-05-17 11:26] LABS: MANUAL DIFF FLAG NO
[2023-05-17 11:27] LABS: Basophils Percent Auto 0.4 % (0-2); Eosinophils Absolute Auto 0.1 X10*3/uL (0.0-0.4); Eosinophils Percent Auto 1.4 % (0-4); Hematocrit 24.5 % (42.0-52.0); Hemoglobin 7.6 g/dl (14.0-18.0); Imm Gran Abs Auto 0.21 X10*3/uL (0.00-0.03); Imm Gran Pct Auto 4.3 % (0.0-0.4); Lymphocytes Absolute Auto 0.6 X10*3/uL (1.2-4.9); Lymphocytes Percent Auto 11.2 % (20-40); Mean Corpuscular Hemoglobin 29.5 pg (27.0-33.0); Mean Platelet Volume 8.8 fL (9.4-12.4); Monocytes Absolute Auto 0.2 X10*3/uL (0.1-1.2); Monocytes Percent Auto 4.1 % (2-11); Neutrophils Absolute Auto 3.8 x10*3/uL (2.0-8.3); Neutrophils Percent Auto 78.6 % (45-73); Platelet Count 132 X10*3/uL (160-400); Red Blood Count 2.58 X10*6/uL (4.60-5.80); Red Cell Distribution Width 18.8 % (11.0-16.0); White Blood Count 4.9 X10*3/uL (4.8-10.8)
[2023-05-17 11:44] LABS: Anion Gap 15 (12-20); Blood Urea Nitrogen 23 mg/dL (9-16); Calcium 9.3 mg/dL (8.4-10.2); Carbon Dioxide 20 mmol/L (22-29); Chloride 111 mmol/L (96-108); Creatinine Clr Calc Pharmacy 49.2; Estimated Glomerular Filt Rate 58; Glucose Random 129 mg/dL (60-115); Potassium 3.6 mmol/L (3.3-5.1); Sodium 142 mmol/L (135-145)
== END 2023-05-17 13:01 | disposition home or self-care (01) ==
PROVIDERS: Internal Medicine Cardiovascular Disease; PCP Internal Medicine Medical Oncology; Visit Provider Surgery
PROC: (CPT 36561; principal; 2023-05-17 08:30)
DX: Z45.2 Encounter for adjustment and management of vascular access device (principal); R97.21 Rising PSA following treatment for malignant neoplasm of prostate; C79.51 Secondary malignant neoplasm of bone; C61 Malignant neoplasm of prostate; Z90.79 Acquired absence of other genital organ(s); I48.20 Chronic atrial fibrillation, unspecified; I51.89 Other ill-defined heart diseases; I51.7 Cardiomegaly; I48.91 Unspecified atrial fibrillation; I25.2 Old myocardial infarction; Z95.5 Presence of coronary angioplasty implant and graft; E11.22 Type 2 diabetes mellitus with diabetic chronic kidney disease; N18.9 Chronic kidney disease, unspecified; D64.9 Anemia, unspecified; M85.88 Other specified disorders of bone density and structure, other site; R26.89 Other abnormalities of gait and mobility; R32 Unspecified urinary incontinence; Z79.84 Long term (current) use of oral hypoglycemic drugs; Z79.01 Long term (current) use of anticoagulants; Z79.51 Long term (current) use of inhaled steroids; Z79.899 Other long term (current) drug therapy; Z88.8 Allergy status to other drugs, medicaments and biological substances; Z87.891 Personal history of nicotine dependence
CPT/HCPCS: 36561; 36415; 80048; 82947; 85025; 92950; C1788; J0690; J1160; J1643

== ENCOUNTER → 2023-05-17 07:08 | Outpatient (BNV) | payer MEDICARE, SELFPAY | PROVIDERS: PCP Internal Medicine Medical Oncology; Visit Provider Surgery | DX: C79.51 Secondary malignant neoplasm of bone (principal); C61 Malignant neoplasm of prostate | CPT/HCPCS: 36561; 76937; 77001 ==

== ENCOUNTER → 2023-05-17 07:08 | Outpatient (BNV) | payer MEDICARE, SELFPAY | PROVIDERS: PCP Internal Medicine Medical Oncology; Visit Provider Internal Medicine Cardiovascular Disease | DX: I48.91 Unspecified atrial fibrillation (principal); R97.21 Rising PSA following treatment for malignant neoplasm of prostate; C61 Malignant neoplasm of prostate; M85.80 Other specified disorders of bone density and structure, unspecified site; S51.809A Unspecified open wound of unspecified forearm, initial encounter; C79.51 Secondary malignant neoplasm of bone; Z45.2 Encounter for adjustment and management of vascular access device; E11.9 Type 2 diabetes mellitus without complications; D64.9 Anemia, unspecified; N18.9 Chronic kidney disease, unspecified; N28.9 Disorder of kidney and ureter, unspecified | CPT/HCPCS: 99291 ==

== ENCOUNTER 2023-05-18 10:01 | Outpatient (REF) | payer MEDICARE, SELFPAY ==
[2023-05-18 10:33] LABS: MANUAL DIFF FLAG NO
[2023-05-18 10:45] LABS: Basophils Percent Auto 0.4 % (0-2); Eosinophils Absolute Auto 0.2 X10*3/uL (0.0-0.4); Eosinophils Percent Auto 2.6 % (0-4); Hematocrit 24.7 % (42.0-52.0); Hemoglobin 7.7 g/dl (14.0-18.0); Imm Gran Abs Auto 0.14 X10*3/uL (0.00-0.03); Imm Gran Pct Auto 1.9 % (0.0-0.4); Lymphocytes Absolute Auto 1.1 X10*3/uL (1.2-4.9); Lymphocytes Percent Auto 14.7 % (20-40); Mean Corpuscular HGB Conc 31.2 g/dl (31.0-36.0); Mean Corpuscular Hemoglobin 29.6 pg (27.0-33.0); Mean Platelet Volume 8.9 fL (9.4-12.4); Monocytes Absolute Auto 0.3 X10*3/uL (0.1-1.2); Monocytes Percent Auto 3.5 % (2-11); NRBC Pct Auto 0.3 /100WBC (0.0-0.2); Neutrophils Absolute Auto 5.7 x10*3/uL (2.0-8.3); Neutrophils Percent Auto 76.9 % (45-73); Platelet Count 133 X10*3/uL (160-400); Red Cell Distribution Width 18.7 % (11.0-16.0); White Blood Count 7.4 X10*3/uL (4.8-10.8)
[2023-05-18 11:19] LABS: Alanine Aminotransferase 5 U/L (0-40); Alkaline Phosphatase 330 U/L (39-117); Anion Gap 14 (12-20); Aspartate Amino Transferase 22 U/L (5-37); Bilirubin Total 0.8 mg/dL (0.0-1.0); Blood Urea Nitrogen 18 mg/dL (9-16); Calcium 9.3 mg/dL (8.4-10.2); Carbon Dioxide 18 mmol/L (22-29); Chloride 112 mmol/L (96-108); Estimated Glomerular Filt Rate > 60; Glucose Random 225 mg/dL (60-115); Potassium 3.3 mmol/L (3.3-5.1); Sodium 141 mmol/L (135-145); Total Protein 5.8 g/dL (6.5-8.0)
[2023-05-20 04:34] LABS: HBc Num1 0.11 S/CO (0.00-0.79); HBsAGNum1 0.35 S/CO (0.00-0.99); Hepatitis B Core Antibody Nonreactive (Nonreactive); Hepatitis B Surface Antigen Negative (Negative); ~Hepatitis B Surface Antibody NONREACTIVE (Nonreactive)
== END 2023-05-18 10:02 | disposition home or self-care (01) ==
LOC: HO.LAB 10:01
PROVIDERS: Internal Medicine; PCP Internal Medicine Medical Oncology; Visit Provider Internal Medicine Medical Oncology
DX: C61 Malignant neoplasm of prostate (principal); C79.51 Secondary malignant neoplasm of bone; E78.5 Hyperlipidemia, unspecified; E11.9 Type 2 diabetes mellitus without complications; I10 Essential (primary) hypertension
CPT/HCPCS: 36415; 80053; 82728; 85025; 86704; 86706; 86850; 86900; 86901; 87340

== ENCOUNTER 2023-05-22 11:00 | Outpatient (RCR) | payer MEDICARE, SELFPAY ==
--- NOTE | 2023-05-10 11:32 | PM.HEMONCCN ---
Subjective - Subjective Chief complaint: Prostate cancer Patient: new to practice Consult date: 05/10/23 Primary Care Provider: Moises Staley MD Medical Summary: Diagnosis: Metastatic prostate cancer HPI - Consult Narrative Reason for consult: Castrate resistant metastatic prostate cancer Narrative: Maxim Sena is a 77 year old male who is here for consideration of chemotherapy for castrate resistant metastatic prostate cancer. He was initially diagnosed with prostate cancer in 2002. He states he underwent prostatectomy followed by adjuvant radiation therapy at [facility] in 2002. About 10 years ago he was diagnosed with bone metastasis and has been under the care of urologist as well as Dr. Staley. He has received treatment with bicalutamide, enzalutamide, abiraterone and apalutamide. He has had persistent disease progression since October 2022. His PSA jeremie from 77.9 in October to over 300 in March 2023. He is accompanied by his today. He reports worsening weakness and shortness of breath. His appetite is quite poor and he is losing weight. He was recently admitted to [facility] for bladder infection. He has been on Eliquis for atrial fibrillation, he reports extensive skin bruising. He also takes baby aspirin. His daughter was diagnosed with breast cancer at age 52. His mother may have had breast cancer. He does not recall any other family member with prostate cancer. Oncology Screenings - ECOG Performance Status ECOG Performance Status: 3 [facility] Medical History: Medical History (Last Updated 03/06/23 @ 16:46 by Yolanda Mcgee MD) Bacteremia Elevated PSA Metastatic cancer Multifactorial gait disorder Peripheral neuropathy Prostate cancer Prostate cancer metastatic to bone Urgency incontinence Family History: Family History (Last Updated 05/10/23 @ 12:53 by Joanne Barnes RN) Daughter Breast cancer Surgical History: Surgical History (Last Updated 05/10/23 @ 12:56 by Joanne Barnes RN) History of cystoscopy History of prostatectomy Hx of heart artery stent Social History: Social History (Last Updated 05/10/23 @ 12:56 by Joanne Barnes RN) Living Situation History: Household Members: Spouse Housing: House Do you presently have visiting nurse or other home services: No Alcohol History Details: 1. How often do you have a drink containing alcohol?: e. 4 or more times a week 2. How many drinks containing alcohol do you have on a typical day when you are drinking?: a. 1 or 2 3. How often do you have six or more drinks on one occasion?: a. Never Last drink: Days (ago) Last drink: Hours (ago) Last Drank Other:: 1 Amount Drank: 1 Currently Displaying Signs/Symptoms of Alcohol Withdrawal: No Tobacco History: Patient Tobacco Use Status: Former Tobacco user Occupation Assessmet: service: No Current occupational status: retired Patient Tobacco Use Status: Former Tobacco user Home Medications and Allergies Home Medications Medication Instructions Recorded Confirmed Type apixaban 5 mg tablet 5 mg PO BID 10/07/20 03/04/23 History metoprolol tartrate 50 mg tablet 75 mg PO BID 10/07/20 03/04/23 History rosuvastatin 40 mg tablet 40 mg PO DAILY 10/07/20 03/04/23 History sitagliptin phosphate 25 mg tablet 25 mg PO DAILY 10/07/20 03/04/23 History metformin 850 mg tablet 850 mg PO DAILY 03/03/23 03/04/23 History oxycodone 5 mg tablet 5 mg PO QID PRN Pain 03/03/23 03/04/23 History abiraterone 500 mg tablet 500 mg PO BID 03/04/23 03/04/23 History albuterol sulfate 90 mcg/actuation 2 puff inhalation Q6H PRN Wheezing 03/04/23 03/04/23 History aerosol inhaler fluticasone propionate 50 1 spray intranasal DAILY 03/04/23 03/04/23 History mcg/actuation nasal spray,suspension prednisone 5 mg tablet 5 mg PO BID 03/04/23 03/04/23 History Allergies Allergy/AdvReac Type Severity Reaction Status Date / Time bee pollen [BEE STINGS] Allergy Severe ANAPHYLAXIS Verified 12/11/22 11:40 leuprolide [From Lupron] AdvReac Unknown REACTION Verified 12/11/22 11:40 TO BRAND NAME LUPRON, OTHER BRANDS [place] bee stings Allergy Unknown anaphylaxis Uncoded 12/11/22 11:40 Physical Exam Vital signs: Vital Signs (72 hours) 05/10/23 12:45 Pulse Rate 89 Respiratory Rate 20 Blood Pressure 88/59 L Pulse Oximetry 95 Oxygen Delivery Method Room Air - Constitutional Present: mild distress, thin, chronically ill appearing - Routine HEENT Exam Eye: Present: conjunctivae pale, PERRL - Routine Neck Exam Present: supple. Absent: lymphadenopathy - Routine Respiratory Exam Present: decreased breath sounds. Absent: accessory muscle use - Routine Cardiovascular Exam Cardiovascular: Present: S1, S2 - Routine Abdominal Exam Present: soft - Routine Extremities Exam Absent: pedal edema - Routine Skin Exam Present: ecchymosis Hem/Onc Consult Result - Labs CBC & Chem 7: 05/10/23 12:19 05/10/23 12:19 Assessment and Plan Patient Active problem list reviewed?: Yes (1) Prostate cancer metastatic to bone Status: Chronic Assessment and plan: 1. This is a pleasant 77-year-old male with castrate resistant metastatic prostate cancer who has failed multiple lines of chemotherapy. Was initially diagnosed in 2002, he underwent radical prostatectomy followed by radiation therapy. He has been receiving different hormonal therapies under the care of Dr. Staley for last 7-8 years. He has now progressive disease with worsening bone metastasis. His PSA today is 488.89. He has developed worsening anemia probably related to extensive skin bruising and underlying malignancy. He was advised to stop baby aspirin. Bone scan in February 2023 showed extensive bone metastasis with progression compared to October scan. He is here for her recommendations about chemotherapy. On exam today, he appeared quite frail and hypotensive although he is asymptomatic. He was treated for urosepsis with Klebsiella pneumoniae in February 2023. His kidney functions are stable. Alkaline phosphatase level is going up, this is related to bone metastasis. I discussed blood transfusion, this will be arranged for Saturday. In the meantime he was advised to go to ED if he develops any worsening symptoms. Systemic/chemotherapy with Taxotere is an option but given his poor performance status at this time, he will be reassessed in a few days. NGS testing for homologous recombinant repair/HRR defects and BRCA mutations can be performed to see if he is a candidate for PARP inhibitors. His daughter was diagnosed with breast cancer in her early 50s and she is currently receiving treatment. I do not have original pathology report, this will be obtained as well. MSI testing and TMB could be performed for consideration of immunotherapy. I thank you very much for this consultation. Follow-up in 2 weeks. - Time Spent With Patient Time Spent with Patient (in minutes): 45
[2023-05-10 12:23] LABS: MANUAL DIFF FLAG NO
[2023-05-10 12:27] LABS: Basophils Percent Auto 0.3 % (0-2); Eosinophils Absolute Auto 0.2 X10*3/uL (0.0-0.4); Eosinophils Percent Auto 1.9 % (0-4); Hematocrit 25.4 % (42.0-52.0); Imm Gran Abs Auto 0.13 X10*3/uL (0.00-0.03); Imm Gran Pct Auto 1.6 % (0.0-0.4); Lymphocytes Absolute Auto 1.4 X10*3/uL (1.2-4.9); Lymphocytes Percent Auto 17.5 % (20-40); Mean Corpuscular HGB Conc 31.5 g/dl (31.0-36.0); Mean Corpuscular Hemoglobin 29.2 pg (27.0-33.0); Mean Corpuscular Volume 92.7 fL (80.0-98.0); Mean Platelet Volume 8.8 fL (9.4-12.4); Monocytes Absolute Auto 0.4 X10*3/uL (0.1-1.2); Monocytes Percent Auto 4.7 % (2-11); Neutrophils Absolute Auto 5.9 x10*3/uL (2.0-8.3); Platelet Count 183 X10*3/uL (160-400); Red Blood Count 2.74 X10*6/uL (4.60-5.80); Red Cell Distribution Width 18.5 % (11.0-16.0); White Blood Count 7.9 X10*3/uL (4.8-10.8)
[2023-05-10 12:45] VITALS: BP 88/59; PULSE 89; RESP 20; O2SAT 95
[2023-05-10 12:45] LABS: Alanine Aminotransferase 7 U/L (0-40); Albumin Level 3.3 g/dL (3.5-5.0); Alkaline Phosphatase 287 U/L (39-117); Anion Gap 16 (12-20); Aspartate Amino Transferase 20 U/L (5-37); Bilirubin Total 0.6 mg/dL (0.0-1.0); Blood Urea Nitrogen 23 mg/dL (9-16); Calcium 9.7 mg/dL (8.4-10.2); Carbon Dioxide 20 mmol/L (22-29); Chloride 111 mmol/L (96-108); Creatinine Clr Calc Pharmacy 42.9; Estimated Glomerular Filt Rate 50; Glucose Random 186 mg/dL (60-115); Sodium 143 mmol/L (135-145); Total Protein 6.1 g/dL (6.5-8.0)
[2023-05-10 13:43] LABS: Prostate Specific Antigen 488.89 ng/mL (<0.05-4.0)
[2023-05-13 11:05] VITALS: BP 96/55; PULSE 133; RESP 18; TEMP 36.7; O2SAT 95
[2023-05-13 12:42] VITALS: BP 101/55; PULSE 107; RESP 18; TEMP 36.7
[2023-05-13 13:02] VITALS: BP 102/60; PULSE 128; RESP 18; TEMP 36
[2023-05-13] MEDS: Acetaminophen 325 MG TABLET 650 MG PO (16:03)
[2023-05-13 16:07] VITALS: BP 99/64; PULSE 129; RESP 17; TEMP 36.6
--- NOTE | 2023-05-13 17:02 | MHC.HEMONC ---
Hgb 8.0- one unit of RBC ordered. Consent signed. Blood bank notified. [id number] genetic test sent out by [facility] Lungs clear- transfusion well tolerated. No signs of reaction noted. Follow up with Dr. Rosado today. Plan for chemotherapy: Docetaxel to start next week with chemotherapy teaching. Port order placed- [facility] aware. Pharmacy notified of potential start. Awaiting chemo orders to process for prior authorization. IV removed- discharge packet provided with next appt.
--- NOTE | 2023-05-14 14:13 | HE.ONCSEC ---
Faxed request to PCP for ins auth referral.
--- NOTE | 2023-05-15 14:43 | HO.HEMONCSCH ---
[facility]
--- NOTE | 2023-05-15 15:36 | HO.HEMONCPA ---
Addendum entered by Betina Purcell 05/21/23 09:52: [employer] ON PRO J2506 APPROVED AUTH # [id number] DOS 05/20/23 - 10/14/23 FOR 6 CYCLES Original Note: NO PA REQUIRED FOR DOCETAXEL J9171 OR PREDNISONE J2650 PER MARIAH [place] ON 05/15/23 AT 1528PM EST
--- NOTE | 2023-05-16 07:55 | HE.ONCSEC ---
Faxed 2nd request for ins auth referral
--- NOTE | 2023-05-17 09:52 | HE.ONCSEC ---
Unable to LVM because mailbox full. Wanted to remind pt of appt on 05/20/23
[2023-05-18 11:41] LABS: Ferritin 90 ng/mL (20-250)
[2023-05-18 13:54] LABS: Testosterone, Total <1 ng/dL (250-1100)
[2023-05-20 11:21] VITALS: BP 93/56; PULSE 102; RESP 18; TEMP 36.7; O2SAT 99; BMI 19.5
--- NOTE | 2023-05-20 11:28 | P.PNHO-ONC_ITS ---
Medical Summary - Medical Summary Date of Service: 05/20/23 Chief complaint: Follow-up Primary Care Provider: Oh Osman MD Medical Summary: Diagnosis: Metastatic castrate resistant prostate cancer He was initially diagnosed with prostate cancer in 2002. He states he underwent prostatectomy followed by adjuvant radiation therapy at [facility] in 2002. About 10 years ago he was diagnosed with bone metastasis and has been under the care of urologist as well as Dr. Staley. He has received treatment with bicalutamide, enzalutamide, abiraterone and apalutamide. He has had persistent disease progression since October 2022. His PSA jeremie from 77.9 in October to over 300 in March 2023. Bone scan in February 2023 showed extensive bone metastasis with progression compared to October scan. Interval History Interval history: Maxim is here in follow-up and 1st cycle of chemotherapy. He had his port inserted on Saturday. He was seen by Cardiology for fast heart beat, dose of metoprolol was increased. Denies any chest pain or shortness of breath today. No nausea or emesis. He remains on Eliquis for his atrial fibrillation. Review of Systems - Constitutional Reports as per HPI, Reports lack of energy, Reports malaise - Cardiovascular Denies chest pain, Denies excessive sweating, Denies fainting, Reports irregular heart rhythm - Respiratory Reports no additional respiratory complaints - Gastrointestinal Reports no additional gastrointestinal complaints, Denies abdominal pain, Denies bright, red blood in stools PMFSH Medical History: Medical History (Last Updated 05/17/23 @ 10:47 by Ethan Radford MD) Bacteremia Chronic kidney insufficiency Diabetes Elevated cholesterol Elevated PSA Metastatic cancer Multifactorial gait disorder Myocardial infarction Peripheral neuropathy Prostate cancer Prostate cancer metastatic to bone Type 2 diabetes mellitus Urgency incontinence Family History: Family History (Last Reviewed 05/14/23 @ 11:18 by ARACELI Raymond) Daughter Breast cancer Surgical History: Surgical History (Last Reviewed 05/14/23 @ 11:18 by ARACELI Raymond) History of cystoscopy History of prostatectomy Hx of heart artery stent Social History: Social History (Last Reviewed 05/14/23 @ 11:18 by ARACELI Raymond) Living Situation History: Household Members: Spouse Housing: House Do you presently have visiting nurse or other home services: No Alcohol History Details: 1. How often do you have a drink containing alcohol?: e. 4 or more times a week 2. How many drinks containing alcohol do you have on a typical day when you are drinking?: a. 1 or 2 3. How often do you have six or more drinks on one occasion?: a. Never Last drink: Days (ago) Last drink: Hours (ago) Last Drank Other:: 1 Amount Drank: 1 Currently Displaying Signs/Symptoms of Alcohol Withdrawal: No Tobacco History: Patient Tobacco Use Status: Former Tobacco user Smoke Quit Date: 20 yrs ago Occupation Assessmet: service: No Current occupational status: retired Home Medications and Allergies Current Medications: Current Medications Acetaminophen (Acetaminophen 325 Mg Tablet) 650 mg PO ONCE ALEJANDRA Stop: 05/20/23 23:59 Diphenhydramine HCl (Diphenhydramine Hcl 25 Mg Capsule) 25 mg PO ONCE ALEJANDRA Stop: 05/20/23 23:59 Famotidine (Famotidine 20 Mg Tablet) 20 mg PO ONCE ALEJANDRA Stop: 05/20/23 23:59 Heparin Sodium (Porcine) (Heparin Sodium,Porcine Flush 500 Unit/5 Ml Syringe) 500 unit IVFLUSH ONCE ALEJANDRA Stop: 05/20/23 23:59 Dexamethasone Sodium Phosphate (Decadron) 12 mg in 50 mls @ 200 mls/hr IV ONCE ALEJANDRA Stop: 05/20/23 23:59 Ondansetron HCl (Zofran) 16 mg in 50 mls @ 200 mls/hr IV ONCE ALEJANDRA Stop: 05/20/23 23:59 Fosaprepitant 150 mg/ Sodium (Chloride) 150 mls @ 300 mls/hr IV ONCE ALEJANDRA Stop: 05/20/23 23:59 Pegfilgrastim (Pegfilgrastim Onpro 6 Mg/0.6 Ml Syr.W..Inj) 6 mg SUBCUT ONCE ALEJANDRA Stop: 05/20/23 23:59 Home Medications Medication Instructions Recorded Confirmed Type apixaban 5 mg tablet 5 mg PO BID 10/07/20 05/17/23 History rosuvastatin 40 mg tablet 40 mg PO DAILY 10/07/20 05/17/23 History sitagliptin phosphate 25 mg tablet 25 mg PO DAILY 10/07/20 05/17/23 History (Januvia) metformin 850 mg tablet 850 mg PO DAILY 03/03/23 05/17/23 History albuterol sulfate 90 mcg/actuation 2 puff inhalation Q6H PRN Wheezing 03/04/23 05/17/23 History aerosol inhaler fluticasone propionate 50 1 spray intranasal DAILY 03/04/23 05/17/23 History mcg/actuation nasal spray,suspension fentanyl 50 mcg/hr transdermal 1 patch topical Q3D 05/10/23 05/17/23 History patch metoprolol tartrate 25 mg tablet 12.5 mg PO DAILY 05/10/23 05/17/23 History mirabegron 25 mg tablet,extended 25 mg PO DAILY 05/17/23 05/17/23 History release 24 hr (Myrbetriq) Allergies Allergy/AdvReac Type Severity Reaction Status Date / Time bee pollen [BEE STINGS] Allergy Severe ANAPHYLAXIS Verified 05/17/23 08:04 leuprolide [From Lupron] AdvReac Unknown REACTION Verified 05/17/23 08:04 TO BRAND NAME LUPRON, OTHER BRANDS [place] bee stings Allergy Unknown anaphylaxis Uncoded 05/14/23 11:10 Exam Vital signs: Vital Signs Temp 98.0 F 05/20/23 11:21 Pulse 102 H 05/20/23 11:21 Resp 18 05/20/23 11:21 BP 93/56 L 05/20/23 11:21 Pulse Ox 99 05/20/23 11:21 O2 Del Method Room Air 05/20/23 11:21 Intake & Output 05/19/23 05/20/23 05/20/23 18:59 06:59 18:59 Other: Weight 67.2 kg [place] Weight in Grams [id number] Weight 67.2 kg BMI result Body Mass Index 19.5 - Constitutional Present: mild distress, thin, chronically ill appearing - Routine Respiratory Exam Present: decreased breath sounds. Absent: accessory muscle use - Routine Cardiovascular Exam Cardiovascular: Present: S1, S2 - Routine Abdominal Exam Present: soft - Routine Extremities Exam Absent: pedal edema - Routine Skin Exam Present: ecchymosis Data - Labs CBC & Chem 7: 05/10/23 12:19 05/10/23 12:19 Labs: 05/10/23 12:19 Type and Screen Routine Complete Blood Count Auto Diff Routine Comprehensive Met. Panel Routine Prostate Specific Antigen Routine Testosterone, Free/Total Routine 05/13/23 12:03 RBC [Red Blood Cells] Routine 05/13/23 15:48 Acetaminophen [Tylenol] 650 mg PO ONCE ONE 05/18/23 10:30 Ferritin Routine Laboratory Last Values WBC 7.9 X10*3/uL (4.8-10.8) 05/10/23 12:19 RBC 2.74 X10*6/uL (4.60-5.80) L 05/10/23 12:19 Hgb 8.0 g/dl (14.0-18.0) L 05/10/23 12:19 Hct 25.4 % (42.0-52.0) L 05/10/23 12:19 MCV 92.7 fL (80.0-98.0) 05/10/23 12:19 MCH 29.2 pg (27.0-33.0) 05/10/23 12:19 MCHC 31.5 g/dl (31.0-36.0) 05/10/23 12:19 RDW 18.5 % (11.0-16.0) H 05/10/23 12:19 Plt Count 183 X10*3/uL (160-400) 05/10/23 12:19 MPV 8.8 fL (9.4-12.4) L 05/10/23 12:19 Immature Gran % (Auto) 1.6 % (0.0-0.4) H 05/10/23 12:19 Neut % (Auto) 74.0 % (45-73) H 05/10/23 12:19 Lymph % (Auto) 17.5 % (20-40) L 05/10/23 12:19 Early % (Auto) 4.7 % (2-11) 05/10/23 12:19 Eos % (Auto) 1.9 % (0-4) 05/10/23 12:19 Baso % (Auto) 0.3 % (0-2) 05/10/23 12:19 Lymph # (Auto) 1.4 X10*3/uL (1.2-4.9) 05/10/23 12:19 Early # (Auto) 0.4 X10*3/uL (0.1-1.2) 05/10/23 12:19 Eos # (Auto) 0.2 X10*3/uL (0.0-0.4) 05/10/23 12:19 Baso # (Auto) 0.0 X10*3/uL (0.0-0.2) 05/10/23 12:19 Abs Immat Gran (auto) 0.13 X10*3/uL (0.00-0.03) H 05/10/23 12:19 Absolute Neuts (auto) 5.9 x10*3/uL (2.0-8.3) 05/10/23 12:19 Absolute Nucleated RBC 0.000 X10*3/uL (0.0-0.012) 05/10/23 12:19 Nucleated RBC % (auto) 0.0 /100WBC (0.0-0.2) 05/10/23 12:19 Sodium 143 mmol/L (135-145) 05/10/23 12:19 Potassium 4.0 mmol/L (3.3-5.1) 05/10/23 12:19 Chloride 111 mmol/L (96-108) H 05/10/23 12:19 Carbon Dioxide 20 mmol/L (22-29) L 05/10/23 12:19 Anion Gap 16 (12-20) 05/10/23 12:19 BUN 23 mg/dL (9-16) H 05/10/23 12:19 Creatinine 1.38 mg/dL (0.5-1.4) 05/10/23 12:19 Estim Creat Clear Calc 42.9 05/10/23 12:19 Estimated GFR 50 05/10/23 12:19 Random Glucose 186 mg/dL (60-115) H 05/10/23 12:19 Calcium 9.7 mg/dL (8.4-10.2) 05/10/23 12:19 Ferritin 90 ng/mL (20-250) 05/18/23 10:30 Total Bilirubin 0.6 mg/dL (0.0-1.0) 05/10/23 12:19 AST 20 U/L (5-37) 05/10/23 12:19 ALT 7 U/L (0-40) 05/10/23 12:19 Alkaline Phosphatase 287 U/L (39-117) H 05/10/23 12:19 Total Protein 6.1 g/dL (6.5-8.0) L 05/10/23 12:19 Albumin 3.3 g/dL (3.5-5.0) L 05/10/23 12:19 Prostate Specific Ag 488.89 ng/mL (<0.05-4.0) H 05/10/23 12:19 Total Testosterone <1 ng/dL (250-1100) L 05/10/23 12:19 Fr Testosterone Dialys see note pg/mL 05/10/23 12:19 Blood Type A Positive 05/18/23 10:22 Antibody Screen NEGATIVE 05/18/23 10:22 Crossmatch See Detail 05/18/23 10:22 Assessment and Plan Patient Active problem list reviewed?: Yes (1) Prostate cancer metastatic to bone Status: Chronic Assessment and plan: 1. This is a pleasant 78-year-old male with castrate resistant metastatic prostate cancer who has failed multiple lines of chemotherapy. He underwent radical prostatectomy in January 2004, pathology revealed adenocarcinoma [place] score 8. Was initially diagnosed in 2002, he underwent radical prostatectomy followed by radiation therapy. He has been receiving different hormonal therapies under the care of Dr. Staley for last 7-8 years. He has now progressive disease with worsening bone metastasis. His last PSA today is 488.89. He has developed worsening anemia probably related to extensive skin bruising and underlying malignancy. He was advised to stop baby aspirin. He was advised to cut back Eliquis to 2.5 mg b.i.d. He is being given 1 unit blood transfusion today. NGS testing for homologous recombinant repair/HRR defects and BRCA mutations was submitted to see if he is a candidate for PARP inhibitors. He has has MediPort placed First cycle of Taxotere is being given today with dose reduction to 60 milligram/meter sq. I did explain to him that he is at high risk of side effect s, he wishes to proceed with treatment. He will be administered Neulasta to prevent neutropenic fever. Follow-up in 2 weeks. - Time Spent With Patient Time Spent with Patient (in minutes): 20
[2023-05-20 12:00] VITALS: BP 93/56; PULSE 102; RESP 18; TEMP 36.7
[2023-05-20 12:17] VITALS: BP 100/59; PULSE 95; RESP 18; TEMP 36.1
[2023-05-20 14:11] VITALS: BP 103/64; PULSE 89; RESP 16; TEMP 36.5
[2023-05-20] MEDS: diphenhydrAMINE HCL 25 MG CAPSULE PO (14:18)
[2023-05-20] MEDS: Acetaminophen 325 MG TABLET 650 MG PO (14:18)
[2023-05-20] MEDS: Fosaprepitant Dimeglumine 150 MG in 0.9 % Sodium Chloride 145 ML 300 MG IV (14:19)
[2023-05-20] MEDS: dexAMETHasone sod phosphate/NS 12 MG/50 ML PIGGYBACK 200 MG IV (14:19)
[2023-05-20] MEDS: Famotidine 20 MG TABLET PO (14:19)
[2023-05-20] MEDS: Heparin Sodium,Porcine Flush 500 UNIT/5 ML SYRINGE IVFLUSH (14:22)
[2023-05-20] MEDS: Pegfilgrastim Onpro 6 MG/0.6 ML SYR.W..INJ SUBCUT (17:00)
--- NOTE | 2023-05-20 17:24 | MHC.HEMONC ---
C1D1: Doxetaxel. Labs completed on Friday 05/18. Hgb 7.7- Dr. Rosado notified. 1 unit of RBC ordered. Port to right chest wall accessed without difficulty- positive blood return. Steri strips intact with old blood noted. Site intact- no redness or swelling. Blood transfusion consent signed. Lungs clear/diminished at bases. No distress noted. Patient does report fatigue.Blood bank notified. Transfusion well tolerated with no signs of reaction noted. Chemotherapy teaching completed. Patient accompanied by Malinda. Potential side effects including but not limited to discussed: neutropenia, fatigue, nausea, vomiting, diarrhea, constipation, allergic reaction etc. When and how to call department and chemotherapy schedule. All questions and concerns addressed. Consent signed. Pre-medicated with Tylenol 650mg PO, Zofran 16mg IV, Dexamethsone 12mg IV, Benadryl 25mg PO, Pepcid 20mg PO, and Emend 150mg IV. Docetaxel well tolerated. No reaction. Port flushed with Heparin and de-accessed. Neulasta on Pro administered to right upper arm. Patient instructed to remove at approx 2100 tomorrow night. Patient and verbalize understanding. Patient to return Saturday for repeat labs per Dr. Rosado. Orders sent to pharmacy for Zofran prn and Prednisone 5mg to take daily. Patient departed unit via wheelchair.
--- NOTE | 2023-05-21 07:58 | HE.ONCSEC ---
Faxed to Dr Osman request for ins auth referral.
[2023-05-22 11:04] LABS: Basophils Percent Auto 0.1 % (0-2); Hematocrit 28.6 % (42.0-52.0); Imm Gran Abs Auto 0.25 X10*3/uL (0.00-0.03); Imm Gran Pct Auto 2.1 % (0.0-0.4); Lymphocytes Absolute Auto 0.4 X10*3/uL (1.2-4.9); Lymphocytes Percent Auto 3.3 % (20-40); MANUAL DIFF FLAG SCAN; Mean Corpuscular HGB Conc 31.5 g/dl (31.0-36.0); Mean Corpuscular Volume 95.3 fL (80.0-98.0); Mean Platelet Volume 9.8 fL (9.4-12.4); Monocytes Absolute Auto 0.1 X10*3/uL (0.1-1.2); Monocytes Percent Auto 0.5 % (2-11); Red Cell Distribution Width 18.5 % (11.0-16.0); SCAN SMEAR FLAG 1; White Blood Count 11.7 X10*3/uL (4.8-10.8)
[2023-05-22 11:05] LABS: Platelet Count 88 X10*3/uL (160-400)
[2023-05-22 11:17] LABS: Alanine Aminotransferase 9 U/L (0-40); Alkaline Phosphatase 290 U/L (39-117); Anion Gap 13 (12-20); Aspartate Amino Transferase 32 U/L (5-37); Bilirubin Total 0.8 mg/dL (0.0-1.0); Blood Urea Nitrogen 27 mg/dL (9-16); Calcium 8.2 mg/dL (8.4-10.2); Carbon Dioxide 20 mmol/L (22-29); Chloride 110 mmol/L (96-108); Creatinine Clr Calc Pharmacy 54.7; Estimated Glomerular Filt Rate > 60; Glucose Random 236 mg/dL (60-115); Potassium 4.4 mmol/L (3.3-5.1); Sodium 139 mmol/L (135-145); Total Protein 5.6 g/dL (6.5-8.0)
[2023-05-22 11:21] LABS: SLIDE REVIEW VERIFIED
--- NOTE | 2023-05-22 15:26 | MHC.HEMONC ---
Pt here for labs. HGB 9.[address] Rosado notified. no transfusion needed. Pt to have labs weekly on Tuesdays. Pt and notified. Calendar given with lab appointments and next chemo. Dr Rosado resent script for Zofran to [facility].
--- NOTE | 2023-05-24 13:29 | MHC.HEMONC ---
Triage call-received call from pt's stating pt is not responsive. States last time he was responsive was yesterday. States he is not eating or drinking. Instructed to call 911-Verbalizes understanding of information given
--- NOTE | 2023-05-28 08:14 | HE.ONCSEC ---
Pt's called and LVM informing us pt is in hospital and had a stroke.
== END 2023-05-28 | disposition home or self-care (01) ==
LOC: HO.ONC 11:00
PROVIDERS: PCP Internal Medicine; Referring Provider Internal Medicine Medical Oncology; Visit Provider Internal Medicine
DX: C61 Malignant neoplasm of prostate (principal); C79.51 Secondary malignant neoplasm of bone; D64.9 Anemia, unspecified; I48.91 Unspecified atrial fibrillation; Z79.01 Long term (current) use of anticoagulants; Z92.3 Personal history of irradiation; Z12.5 Encounter for screening for malignant neoplasm of prostate; Z76.89 Persons encountering health services in other specified circumstances
CPT/HCPCS: 36415; 36430; 80053; 82728; 84153; 84402; 84403; 85025; 86850; 86900; 86901; 86923; 96366; 96367; 96375; 96377; 96413; 99205; 99214; J1100; J1453; J1642; J2405; J2506; J9171; P9016

== ENCOUNTER 2023-05-24 14:45 | Inpatient (IN) | payer MEDICARE, SELFPAY ==
[2023-05-24] VITALS (9 sets, daily range): BP systolic 101–140; BP diastolic 54–86; PULSE 107–156; RESP 18–23; TEMP 36.8–37.9; O2SAT 93–99; BMI 23.7; BMI 22.1
--- NOTE | ~2023-05-24 | XR_ITS ---
EXAMINATION: XR CHEST CLINICAL INFORMATION: Dyspnea COMPARISON: Chest radiograph from 10/12/2018 TECHNIQUE: Frontal view of the chest was obtained. FINDINGS: Patient is rotated. Chronic interstitial lung markings. Right single lumen chest port terminating in the proximal to mid SVC. No pneumothorax. Trachea is midline. Cardiac mediastinal silhouette is stable. Aorta demonstrates tortuosity with atherosclerotic calcifications. No large pleural effusion. Plate and screw fixation of the right clavicle. Dental hardware is noted. Degenerative changes of the thoracolumbar spine. Soft tissues are unremarkable. XR/XR chest 1V IMPRESSION: 1. Patient is rotated. 2. Chronic interstitial lung markings. 3. Right single lumen chest port terminating in the proximal to mid SVC.
--- NOTE | ~2023-05-24 | CT_ITS ---
EXAMINATION: CT HEAD WITHOUT CONTRAST CLINICAL INFORMATION: Altered mental status. COMPARISON: None. TECHNIQUE: Contiguous axial imaging was performed from the skullbase to vertex without intravenous administration of contrast. This CT examination was performed using dose optimization techniques as appropriate, variously including the following: *Automated exposure control *Adjustment of mA and/or kV according to patient size (this includes techniques or standardized protocols for targeted exams where dose is matched to indication/reason for exam; i.e. extremities or head) *Use of iterative reconstruction technique DLP: 610 mGy-cm. FINDINGS: There is an age indeterminate infarct with loss of burks-white matter differentiation in the high medial right frontal lobe at the vertex. There is an additional focus of loss of burks to white matter differentiation in the right occipital lobe, also age indeterminate. There is no evidence of acute intracranial hemorrhage or territorial infarction. No abnormal mass effect or midline shift is seen. No extra-axial fluid collections are identified. Moderate chronic white matter microangiopathic changes noted with moderate diffuse brain parenchymal volume loss. There is ex vacuo dilatation of the ventricles as well. The soft tissues are normal. The mastoid air cells and visualized portions of the paranasal sinuses are well aerated. Suspected bony callus formation around the condylar head of the left temporal mandibular joint which may be due to prior traumatic injury. CT/CT head/brain wo IV con IMPRESSION: Focal areas of loss of burks to white matter differentiation in the high right frontal lobe at the vertex and in the right occipital lobe representing age-indeterminate infarcts. An MRI of the brain could be considered in follow-up for further evaluation. Moderate chronic white matter microangiopathy and moderate diffuse brain parenchymal volume loss. Imaging findings reported to Dr. Morris at 8:50 PM on 05/24/2023.
--- NOTE | ~2023-05-24 | MR_ITS ---
EXAMINATION: MR BRAIN WITHOUT CONTRAST CLINICAL INFORMATION: History of prostate cancer. Assess for stroke. COMPARISON: MR lumbar spine from 03/03/2023. TECHNIQUE: Multiplanar, multisequence imaging of the brain was performed without contrast. FINDINGS: There are multiple acute infarcts in the frontoparietal lobes and in the occipital lobes partially. No large territorial infarction is visible. No hemorrhagic conversion of infarcts evident. Corresponding areas of T2 hyperintense signal abnormality are present at sites of acute infarction. Moderate diffuse brain parenchymal volume loss noted with ex vacuo dilatation of the ventricles. Mild chronic white matter microangiopathy evident. No mass effect or midline shift is seen. No extra-axial fluid collections are seen. The brainstem and cerebellum are normal. Abnormal marrow signal noted in the cervical vertebrae and in the skull base, consistent with osseous metastatic disease, also reported elsewhere on prior imaging studies. The craniovertebral junction and remaining midline structures are normal. The major intracranial flow voids at the level of the [place] are preserved. The dural venous sinus flow voids are maintained. The mastoid air cells and paranasal sinuses are well aerated. MR/MR head/brain wo con IMPRESSION: Multiple scattered acute infarcts in the frontoparietal lobes and occipital lobes which may be embolic in etiology. No large territorial infarction. No mass effect or midline shift. Moderate diffuse brain parenchymal volume loss and mild chronic white matter microangiopathy. Imaging findings of osseous metastatic disease in the upper cervical vertebrae and skull base.
--- NOTE | ~2023-05-24 | XR_ITS ---
EXAMINATION: XR CHEST CLINICAL INFORMATION: Hypoxia. COMPARISON: 05/24/2023 TECHNIQUE: Frontal view of the chest was obtained. FINDINGS: The cardiomediastinal silhouette is stable. There are patchy left [id number] lung field infiltrates new/progressed compared to previous. There is underlying diffuse bilateral increased central markings. There are no significant pleural effusions. A Mediport is noted in a stable position. The bony structures and soft tissues are unremarkable. XR/XR chest 1V IMPRESSION: 1. Left [id number] lung field infiltrate. Suspect pneumonia. 2. Mild diffuse increased markings was present previously.
--- NOTE | 2023-05-24 15:04 | ECG_ITS ---
Test Reason : AFIB Blood Pressure : / mmHG Vent. Rate : 153 BPM Atrial Rate : 000 BPM P-R Int : 000 ms QRS Dur : 082 ms QT Int : 296 ms P-R-T Axes : 000 044 201 degrees QTc Int : 472 ms Atrial fibrillation with rapid ventricular response with premature ventricular or aberrantly conducted complexes Nonspecific ST and T wave abnormality Abnormal ECG When compared with ECG of 20-OCT-2018 16:43, Vent. rate has increased BY 61 BPM Nonspecific T wave abnormality has replaced inverted T waves in Inferior leads Nonspecific T wave abnormality, worse in Lateral leads Referred By: Carmen Varner Electronically Signed By:BOYD FARRIS
[2023-05-24] MEDS: dilTIAZem HCL 50 MG/10 ML VIAL 15 MG IVPUSH (15:14)
[2023-05-24] MEDS: 0.9 % Sodium Chloride 1,000 ML 999 ML IVCONT (15:35)
--- NOTE | 2023-05-24 15:47 | ED_ITS ---
HPI - Altered Mental Status General Chief Complaint: Altered Mental Status Stated Complaint: AMS,FOUND UNRESPONSIVE W/PULSE, HI HEART RATE Time Seen by Provider: 05/24/23 14:47 Source: patient, EMS and old records reviewed Mode of arrival: EMS Limitations: other (slightly confused) History of Present Illness HPI narrative: 78 yo male with PMH of CKD, afib on eliquis, HLD, DM2, prostate cancer s/p prostatectomy his scans have showed extensive bone mets and progression of disease who has failed multiple lines of chemotherapy his last treatment was on 05/20 first cycle of Taxotere. Today his was trying to change his brief. EMS also notes the patient was found to be in rapid afib up to 200s and given 15mg d ilt push. Patient is on fentanyl patch and for the first time today was given oral oxycodone on top of it. Back in February had urinary retention and acute pyelonephritis with kleb pneumonia bacteremia S to ceftriaxoneand Staph warneri UTI. Ended up on bactrim for 2 weeks on DC. MD complaint: altered mental status and confusion Onset (ago): day(s) (sometime today) Timing confirmed by: spouse and caregiver Severity: moderate Consistency of symptoms: waxing and waning Context: cancer Associated symptoms: fever, chills, loss of appetite and weakness Related Data Home Medications Medication Instructions Recorded Confirmed apixaban 5 mg tablet 5 mg PO BID 10/07/20 05/17/23 rosuvastatin 40 mg tablet 40 mg PO DAILY 10/07/20 05/17/23 sitagliptin phosphate 25 mg tablet 25 mg PO DAILY 10/07/20 05/17/23 (Januvia) metformin 850 mg tablet 850 mg PO DAILY 03/03/23 05/17/23 albuterol sulfate 90 mcg/actuation 2 puff inhalation Q6H PRN Wheezing 03/04/23 05/17/23 aerosol inhaler fluticasone propionate 50 1 spray intranasal DAILY 03/04/23 05/17/23 mcg/actuation nasal spray,suspension fentanyl 50 mcg/hr transdermal 1 patch topical Q3D 05/10/23 05/17/23 patch metoprolol tartrate 25 mg tablet 12.5 mg PO DAILY 05/10/23 05/17/23 mirabegron 25 mg tablet,extended 25 mg PO DAILY 05/17/23 05/17/23 release 24 hr (Myrbetriq) Previous Rx's Medication Instructions Recorded hydrocodone 5 mg-acetaminophen 325 1 tab PO Q4-6H PRN pain #30 tabs 05/17/23 mg tablet prednisone 5 mg tablet 5 mg PO DAILY #30 tabs 05/20/23 ondansetron 8 mg disintegrating 8 mg PO Q8H nausea #60 tabs 05/22/23 tablet Allergies Allergy/AdvReac Type Severity Reaction Status Date / Time bee pollen [BEE STINGS] Allergy Severe ANAPHYLAXIS Verified 05/17/23 08:04 leuprolide [From Lupron] AdvReac Unknown REACTION Verified 05/17/23 08:04 TO BRAND NAME LUPRON, OTHER BRANDS [place] bee stings Allergy Unknown anaphylaxis Uncoded 05/14/23 11:10 Review of Systems Review of Systems: ROS unable to be obtained due to altered mental status [facility] Past Medical History Attestation statement: The following information was validated with the patient. Source: old records reviewed Medical History Bacteremia Chronic kidney insufficiency Diabetes Elevated cholesterol Elevated PSA Metastatic cancer Multifactorial gait disorder Myocardial infarction Peripheral neuropathy Prostate cancer Prostate cancer metastatic to bone Type 2 diabetes mellitus Urgency incontinence Surgical History History of cystoscopy History of prostatectomy Hx of heart artery stent Family History Family History Daughter Breast cancer Social History Social History Household Members: Spouse Housing: House Do you presently have visiting nurse or other home services: No Patient Tobacco Use Status: Former Tobacco user Quit Date: 20 yrs ago Advance Directives: No Advance Directives Information Provided: No service: No Current occupational status: retired Physical Exam ED Vital Signs: Vital Signs - 24 hr 05/24/23 14:49 05/24/23 15:34 Temperature 100.3 F Pulse Rate 146 H 138 H Respiratory Rate 23 H 21 H Blood Pressure 131/76 107/86 Pulse Oximetry 96 Oxygen Delivery Method Room Air BMI result Body Mass Index 23.7 Appearance: Alert. Oriented X2 confused on place at this time. Mild acute distress. frail and ill appearing Eyes: Pupils equal, round and reactive to light. ENT: Pharynx dry MM Neck: Normal inspection. Neck supple. CVS: tachycardic and irregular heart rate and rhythm. Pulses normal. Respiratory: No respiratory distress. Breath sounds diminished Abdomen: Soft and nontender. Skin: Skin warm and dry. pale skin color. poor skin turgor. Extremities: No lower extremity edema. Neuro: Oriented X 2. No motor deficit. No sensory deficit. Course Course Course Narrative: signed out to Dr. Hannon pending further workup Medications Administered Generic Name Dose Route Start Last Admin Trade Name Freq PRN Reason Stop Dose Admin Sodium Chloride 1,000 mls @ 999 mls/hr 05/24/23 15:15 05/24/23 15:35 Ns IVCONT 05/24/23 16:15 999 mls/hr .Q1H1M ALEJANDRA Administration Diltiazem HCl 125 mg/ Sodium 125 mls @ 0 mls/hr 05/24/23 15:30 05/24/23 15:53 Chloride IVCONT 10 mg/hr .Q0M ALEJANDRA 10 mls/hr Administration Protocol Per Protocol Discontinued Medications Generic Name Dose Route Start Last Admin Trade Name Freq PRN Reason Stop Dose Admin Acetaminophen 650 mg 05/24/23 15:37 05/24/23 16:09 Acetaminophen 325 Mg Tablet PO 05/24/23 15:38 650 mg ONCE ONE Administration Diltiazem HCl 15 mg 05/24/23 15:11 05/24/23 15:14 Diltiazem Hcl 50 Mg/10 Ml Vial IVPUSH 05/24/23 15:12 15 mg STAT STA Administration Ceftriaxone Sodium 1 gm/ 50 mls @ 100 mls/hr 05/24/23 15:37 05/24/23 15:59 Sodium Chloride IV 05/24/23 16:06 100 mls/hr ONCE ONE Administration Medical Decision Making Medical Decision Making [facility] Narrative: 78 yo male with PMH of CKD, afib on eliquis, HLD, DM2, prostate cancer s/p prostatectomy his scans have showed extensive bone mets and progression of disease who has failed multiple lines of chemotherapy his last treatment was on 05/20 first cycle of Taxotere. Also previous kleb bacteremia and staph warnerii UTI - at this time I have ordered bladder scan given hx of UTI and retention, CXR for pneumonia, empiric ceftriaxone, IVF and will start on diltiazem drip given rapid afib. The patient will need lactic acid, cultures and CT head given AMS to rule out any signs of mass vs ICH. Anticipate admission. Differential Diagnosis Differential Diagnoses: The differential diagnosis associated with the presentation includes acute infection, pneumonia, UTI, bacteremia, Admission/Observation Consideration of admission/observation: Escalation of care including admission/observation considered admission given presentation and AMS Lab Data MDM Lab Attestation statement: I reviewed the patient's lab results. 05/24/23 15:56 05/24/23 15:55 Labs: Lab Results 05/24/23 Range/Units 16:04 VBG pH 7.41 (7.32-7.43) VBG pCO2 27 mmHg VBG pO2 45 mmHg VBG HCO3 17 L (22-26) mmol/L VBG O2 Saturation 76.0 % VBG Base Excess -6.0 mmol/L Independent Interpretation I performed an independent interpretation of an: EKG Interpretation: Rate: 153 Rhythm: afib [place]: mpr,a; Normal QRS complex. ST T wave : no SHITAL, nonspecific ST T wave chagnes qTC: normal prior studies: increase in rate The study has been interpreted contemporaneously by me. . Radiology Impression Discussion of test interpretation with radiology: I have reviewed the radiologist's reading. Independent Historian Clinical information obtained from an independent historian. History obtained from or confirmed by: EMS External Record Review External record reviewed: Inpatient record Critical Care Time Critical Care Time Critical Care Time: Yes Total Critical Care Time: 45 Attestation: sepsis alert, IV dilt, IV dilt gtt, IVF I attest to this time spent taking care of the patient Discharge Plan Discharge Clinical Impression: Acute confusion, Atrial fibrillation with rapid ventricular response Patient Disposition: Still a Patient Prescriptions: No Action fentanyl 50 mcg/hr patch 72 hour 1 patch topical Q3D metoprolol tartrate 25 mg Tablet 12.5 mg PO DAILY prednisone 5 mg Tablet 5 mg PO DAILY Qty: 30 1RF ondansetron 8 mg Tablet,Disintegrating 8 mg PO Q8H Qty: 60 0RF metformin 850 mg tablet 850 mg PO DAILY fluticasone propionate 50 mcg/actuation [place],Suspension 1 spray INTRANASAL DAILY Rx Instructions: administer into each nostril albuterol sulfate 90 mcg/actuation Hfa Aerosol Inhaler 2 puff INHALATION Q6H PRN (Reason: Wheezing) Myrbetriq 25 mg tablet extended release 24 hr 25 mg PO DAILY hydrocodone-acetaminophen 5-325 mg tablet 1 tab PO Q4-6H PRN (Reason: pain) Qty: 30 0RF Rx Instructions: Partial Fill upon patient request. Januvia 25 mg tablet 25 mg PO DAILY apixaban 5 mg tablet 5 mg PO BID rosuvastatin 40 mg tablet 40 mg PO DAILY
[2023-05-24] MEDS: dilTIAZem HCL 125 MG in 0.9 % Sodium Chloride 100 ML 10 MG IVCONT (15:53)
[2023-05-24] MEDS: cefTRIAXone sodium 1 GM in 0.9 % Sodium Chloride 50 ML IV (15:59)
[2023-05-24 16:06] LABS: Hematocrit 23.3 % (42.0-52.0); Hemoglobin 7.3 g/dl (14.0-18.0); Mean Corpuscular HGB Conc 31.3 g/dl (31.0-36.0); Mean Corpuscular Hemoglobin 30.4 pg (27.0-33.0); Mean Corpuscular Volume 97.1 fL (80.0-98.0); Mean Platelet Volume 11.2 fL (9.4-12.4); Red Cell Distribution Width 17.8 % (11.0-16.0); White Blood Count 5.7 X10*3/uL (4.8-10.8)
[2023-05-24] MEDS: Acetaminophen 325 MG TABLET 650 MG PO (16:09)
[2023-05-24 16:10] LABS: Venous Blood Gas Refer to POC result
[2023-05-24 16:10] LABS: VBG HCO3 17 mmol/L (22-26); VBG pCO2 27 mmHg; VBG pH 7.41 (7.32-7.43); VBG pO2 45 mmHg
--- NOTE | 2023-05-24 16:13 | PC.NURSE ---
pt a&ox4, comes in with EMS minimally responsive. per his over the past couple days he has been very lethargic and minimally repsonsive. pt now alert and oreinted, and able to respond to questions answered, though answeres minimally. EKG done and labs done. cultures drawn, ABX started. pt in rapid afib on arrival up to 170s. cardizem push given, and pt now on cardizem drip at 10mg/hr. 2nd IV inserted in right forearm. temp 100.3 rectal, tylenol PO given. pt tolerated PO pills well.
[2023-05-24 16:24] LABS: COVID-19 Test Negative (Negative); IDNOW Serial# BCCEAD1C
[2023-05-24 16:34] LABS: Alanine Aminotransferase 8 U/L (0-40); Albumin Level 2.9 g/dL (3.5-5.0); Alkaline Phosphatase 228 U/L (39-117); Anion Gap 17 (12-20); Aspartate Amino Transferase 32 U/L (5-37); Bilirubin Direct 0.4 mg/dL (0.0-0.5); Bilirubin Total 0.9 mg/dL (0.0-1.0); Blood Urea Nitrogen 20 mg/dL (9-16); Calcium 8.9 mg/dL (8.4-10.2); Carbon Dioxide 15 mmol/L (22-29); Chloride 114 mmol/L (96-108); Creatinine Clr Calc Pharmacy 84.6; Estimated Glomerular Filt Rate > 60; Glucose Random 177 mg/dL (60-115); Lipase 26 U/L (8-78); Potassium 4.2 mmol/L (3.3-5.1); Sodium 142 mmol/L (135-145); Total Protein 5.2 g/dL (6.5-8.0)
[2023-05-24 16:42] LABS: Lactic Acid 3.1 mmol/L (0.5-2.0)
[2023-05-24 16:54] LABS: Platelet Count 62 X10*3/uL (160-400)
[2023-05-24 16:54] LABS: TSH reflex Free T4 1.43 uIU/mL (0.32-4.0)
[2023-05-24 17:01] LABS: Band Neutrophils Percent 2 % (3-5); Eosinophils Absolute Manual 0.1 X10*3/uL (0.0-0.4); Eosinophils Percent Manual 2 % (0-4); Lymphocytes Absolute Manual 1.3 X10*3/uL (1.2-4.9); Lymphocytes Percent Manual 22 % (20-40); Monocytes Absolute Manual 0.2 X10*3/uL (0.1-1.2); Monocytes Percent Manual 4 % (2-11); Neutrophils Absolute Manual 4.1 X10*3/uL (2.0-8.3); Neutrophils Percent Manual 70 % (45-73)
[2023-05-24 17:06] LABS: Large Platelet PRESENT; Platelet Estimate DECREASED (NORMAL); Platelet Morphology Comment NOTED; RBC Morphology NORMAL
[2023-05-24 17:11] LABS: INTERNATIONAL NORM RATIO 1.3 (0.9-1.1); Prothrombin Time 16.4 SEC (11.1-13.3)
[2023-05-24 17:18] LABS: Ammonia 21 umol/L (13-55)
[2023-05-24] MEDS: Doxycycline Hyclate 100 MG in 0.9 % Sodium Chloride 250 ML 166.67 MG IV (17:32)
[2023-05-24 18:00] LABS: Reflex Lactate? Lactic Acid Added
[2023-05-24] MEDS: dilTIAZem HCL 50 MG/10 ML VIAL 10 MG IVPUSH (18:36)
[2023-05-24 18:37] LABS: Appearance Urine Clear; Color Urine Yellow; Glucose Urine UA Negative (Negative); Leukocyte Esterase Urine Negative (Negative); Nitrite Urine Negative (Negative); Specific Gravity - Urine 1.015 (1.005-1.025); UMIC TRIGGER UACC YES; Urine Blood Negative (Negative); Urine Ketones Trace mg/dL (Negative); Urine Protein 30 (1+) mg/dL (Neg-Trace)
--- NOTE | 2023-05-24 19:16 | PC.NURSE ---
Assumed care of pt. Pt aox4 at the bedside. Dilt drip running at 15mg/hr. Current hr in the 110-120. 2 units of RBC ordered. Pending type and screen. Pt aware of plan of care.
--- NOTE | 2023-05-24 19:35 | PM.IMHP ---
History of Present Illness Date of Service: 05/24/23 Attending physician on admission: Miguel Morris Chief Complaint: AMS, AFib with RVR Pt is a 78-year-old male with a PMH significant for?prostate cancer with bone metastasis s/p prostatectomy and who has failed multiple lines of chemotherapy, CAD, paroxysmal AFib on Eliquis, CKD 2, HTN, HLD, and rql-rcewzaa-zzzyxrnvo diabetes type 2 who presents to the ED with?altered mental status and elevated heart rate. Patient is alert and oriented to self and place and incapable of providing a full or accurate HPI. Patient's only acute complaint is of diffuse ?aching? leg pain. Denies chest pain/pressure, palpitations. No shortness of breath. Denies fever, chills, nausea, vomiting, abdominal pain. Patient's states she found the patient unresponsive and noncommunicative this morning. Patient is normally alert and oriented x4 incapable of taking care of his own medication administration. Patient had chemo poor systolic last week and began chemotherapy earlier this week. His started on a fentanyl patch for pain management and was just started on OxyContin last night on top of the patch. When was unable to wake the patient up she called oncology office who then suggested she bring him in to the emergency department for further evaluation. In the ED patient with elevated temperature of 100.3 degrees, tachycardic up to 146, tachypneic up to 23, with soft BP as low as 101/54. Labs were significant for H&H of 7.3/23.3, chloride 114, bicarb 15, BUN 20, lactic acid 3.1, alk-phos 228, troponin 5058.7, protein 5.2, hypoalbuminemia 2.9. No leukocytosis. Ammonia WNL at 21. UA negative for UTI. CXR showed no acute cardiopulmonary disease, but showed chronic interstitial lung markings. CT of head found focal areas of loss burks to white matter differentiation in the high right frontal lobe at the vertex and in the right occipital lobe representing age-indeterminate infarcts. Also showed moderate chronic white matter microangiopathy and moderate diffuse brain parenchymal volume loss.. EKG demonstrated AFib with RVR of [address] depressions in V2, V3, V4, and V5. Pt was treated with diltiazem IV push, IVF, ceftriaxone, doxycycline, acetaminophen, and started on a diltiazem drip. Cardiology was consulted who advised to continue Eliquis for anticoagulation, no need for heparin drip since elevated troponins likely rate related ischemia as opposed to unstable plaque. Patient will also receive 1 unit of PRBCs. Pt will be admitted to the hospital for treatment further evaluation of altered mental status in setting of possible CVA, AFib with RVR, and NSTEMI. Review of Systems Review of Systems: Altered mental status, lethargy Diffuse achy leg pain Patient denies chest pain/pressure, palpitations No shortness of breath Denies fever, chills, nausea, vomiting, diarrhea, abdominal pain PMFSH Medical History Bacteremia Chronic kidney insufficiency Diabetes Elevated cholesterol Elevated PSA Metastatic cancer Multifactorial gait disorder Myocardial infarction Peripheral neuropathy Prostate cancer Prostate cancer metastatic to bone Type 2 diabetes mellitus Urgency incontinence Family History Daughter Breast cancer Surgical History History of cystoscopy History of prostatectomy Hx of heart artery stent Social History Household Members: Spouse Housing: House Do you presently have visiting nurse or other home services: No Alcohol intake: never Patient Tobacco Use Status: Former Tobacco user Quit Date: 20 yrs ago Use of substances other than those prescribed or required for medical reasons: No Have you been hit, kicked, punched, or otherwise hurt by someone within the past year? If so, by whom?: No Do you feel safe in your current relationship?: Yes Is there a partner from a previous relationship who is making you feel unsafe now?: No Are you made to feel afraid or neglected: No Advance Directives: No Advance Directives Information Provided: No Do you have thoughts of harming others: None Do you have a plan to hurt others: No Plan Recently lost weight without trying: Yes How much weight loss: 2-13 pounds Eating poorly because of decreased appetite: Yes Nutrition screen score: 4 service: No Current occupational status: retired Meds Allergies Allergy/AdvReac Type Severity Reaction Status Date / Time bee pollen [BEE STINGS] Allergy Severe ANAPHYLAXIS Verified 05/17/23 08:04 leuprolide [From Lupron] AdvReac Unknown REACTION Verified 05/17/23 08:04 TO BRAND NAME LUPRON, OTHER BRANDS [place] bee stings Allergy Unknown anaphylaxis Uncoded 05/14/23 11:10 Active Medications: Current Medications Acetaminophen (Acetaminophen 325 Mg Tablet) 650 mg PO Q6H PRN PRN Reason: Pain, Mild (Pain Scale 1-3) Acetaminophen (Acetaminophen Supp 650 Mg Supp.Rect) 650 mg NM Q6H PRN PRN Reason: Pain, Mild (Pain Scale 1-3) Diltiazem HCl 125 mg/ Sodium (Chloride) 125 mls @ 0 mls/hr IVCONT .Q0M [facility]; Protocol Last Titration: 05/24/23 16:17 Dose: 15 mg/hr, 15 mls/hr Melatonin (Melatonin 3 Mg Tablet) 6 mg PO BEDTIME PRN PRN Reason: Insomnia Ondansetron HCl (Ondansetron Hcl 4 Mg/2 Ml Vial) 4 mg IVPUSH Q8H PRN PRN Reason: Nausea and Vomiting Sodium Chloride (0.9 % Sodium Chloride Flush 3 Ml Syringe) [facility] Medications Medication Instructions Recorded Confirmed Last Taken Type apixaban 5 mg tablet 5 mg PO BID 10/07/20 05/24/23 Unknown History rosuvastatin 40 mg tablet 40 mg PO DAILY 10/07/20 05/24/23 Unknown History sitagliptin phosphate 25 mg tablet 25 mg PO DAILY 10/07/20 05/24/23 Unknown History (Januvia) metformin 850 mg tablet 850 mg PO DAILY 03/03/23 05/24/23 Unknown History fentanyl 50 mcg/hr transdermal 1 patch topical Q3D 05/10/23 05/24/23 Unknown History patch metoprolol tartrate 50 mg tablet 50 mg PO DAILY 05/24/23 05/24/23 Unknown History Physical Exam Vital Signs and Narrative: Vital Signs: Last Vital Signs Temp 99.1 F 05/24/23 18:44 Pulse 107 H 05/24/23 18:44 Resp 18 05/24/23 18:44 BP 111/59 L 05/24/23 18:44 Pulse Ox 99 05/24/23 18:44 O2 Del Method Room Air 05/24/23 18:29 BMI result Body Mass Index 23.7 Constitutional: Alert, pleasantly confused, looks uncomfortable. Mental Status: Oriented to person and place only. Eyes: Pupils are equal, round, and reactive to light. Ear, Nose, and Throat: Oropharynx clear, mucous membranes moist. Ears and nose without deformities. Trachea midline. Respiratory: Clear to auscultation bilaterally. No wheezing, rales, or rhonchi. Cardiovascular: Irregularly irregular rhythm. No murmurs, rubs, or gallops. Gastrointestinal: Abdomen soft, non-tender, non-distended. Normal bowel sounds. Neurologic: Cranial nerves II-XII are grossly intact bilaterally. Moves all extremities spontaneously. Reduced strength in upper extremities 3/5 bilaterally. Reduced strength in lower extremities bilaterally 1/5. Chest: Chemo port in place on upper right chest. No signs of infection. Skin: Multiple areas of ecchymosis on legs and arms, especially on upper extremities. Musculoskeletal: No cyanosis or clubbing. Extremities: No edema. Results Labs 05/24/23 15:56 05/24/23 15:55 Labs: Laboratory Results - last 24 hr 05/24/23 05/24/23 05/24/23 15:54 15:54 15:54 MCV MCH MCHC RDW Plt Count MPV Immature Gran % (Auto) Neut % (Auto) Lymph % (Auto) [place] % (Auto) Eos % (Auto) Baso % (Auto) Lymph # (Auto) [place] # (Auto) Eos # (Auto) Baso # (Auto) Abs Immat Gran (auto) Absolute Neuts (auto) Absolute Nucleated RBC Nucleated RBC % (auto) Neutrophils % (Manual) Band Neutrophils % Lymphocytes % (Manual) Monocytes % (Manual) Eosinophils % (Manual) Abs Neuts (Manual) Lymphocytes # (Manual) Monocytes # (Manual) Eosinophils # (Manual) Platelet Estimate Large Platelets Plt Morphology Comment RBC Morphology PT INR VBG pH VBG pCO2 VBG pO2 VBG HCO3 VBG O2 Saturation VBG Base Excess Anion Gap Estim Creat Clear Calc Estimated GFR Random Glucose Lactic Acid 3.1 H* Calcium Magnesium Total Bilirubin Direct Bilirubin AST ALT Alkaline Phosphatase Ammonia Total Creatine Kinase Total Protein Albumin Lipase TSH 1.43 Urine Color Urine Appearance Urine pH Ur Specific [place] Urine Protein Urine Glucose (UA) Urine Ketones Urine Blood Urine Nitrite Ur Leukocyte Esterase COVID-19 ([facility]) Negative COVID-19 Clin Com See Note 05/24/23 05/24/23 05/24/23 15:55 15:56 16:04 MCV 97.1 MCH 30.4 MCHC 31.3 RDW 17.8 H Plt Count 62 L D MPV 11.2 Immature Gran % (Auto) Cancelled Neut % (Auto) Cancelled Lymph % (Auto) Cancelled [place] % (Auto) Cancelled Eos % (Auto) Cancelled Baso % (Auto) Cancelled Lymph # (Auto) Cancelled [place] # (Auto) Cancelled Eos # (Auto) Cancelled Baso # (Auto) Cancelled Abs Immat Gran (auto) Cancelled Absolute Neuts (auto) Cancelled Absolute Nucleated RBC 0.000 Nucleated RBC % (auto) 0.0 Neutrophils % (Manual) 70 Band Neutrophils % 2 L Lymphocytes % (Manual) 22 Monocytes % (Manual) 4 Eosinophils % (Manual) 2 Abs Neuts (Manual) 4.1 Lymphocytes # (Manual) 1.3 Monocytes # (Manual) 0.2 Eosinophils # (Manual) 0.1 Platelet Estimate DECREASED Large Platelets PRESENT Plt Morphology Comment NOTED RBC Morphology NORMAL PT INR VBG pH 7.41 VBG pCO2 27 VBG pO2 45 VBG HCO3 17 L VBG O2 Saturation 76.0 VBG Base Excess -6.0 Anion Gap 17 Estim Creat Clear Calc 84.6 Estimated GFR > 60 Random Glucose 177 H Lactic Acid Calcium 8.9 D Magnesium 2.0 Total Bilirubin 0.9 Direct Bilirubin 0.4 AST 32 ALT 8 Alkaline Phosphatase 228 H Ammonia Total Creatine Kinase 149 Total Protein 5.2 L Albumin 2.9 L Lipase 26 TSH Urine Color Urine Appearance Urine pH Ur Specific [place] Urine Protein Urine Glucose (UA) Urine Ketones Urine Blood Urine Nitrite Ur Leukocyte Esterase COVID-19 ([facility]) COVID-19 Clin Com 05/24/23 05/24/23 05/24/23 16:58 16:58 18:23 MCV MCH MCHC RDW Plt Count MPV Immature Gran % (Auto) Neut % (Auto) Lymph % (Auto) [place] % (Auto) Eos % (Auto) Baso % (Auto) Lymph # (Auto) [place] # (Auto) Eos # (Auto) Baso # (Auto) Abs Immat Gran (auto) Absolute Neuts (auto) Absolute Nucleated RBC Nucleated RBC % (auto) Neutrophils % (Manual) Band Neutrophils % Lymphocytes % (Manual) Monocytes % (Manual) Eosinophils % (Manual) Abs Neuts (Manual) Lymphocytes # (Manual) Monocytes # (Manual) Eosinophils # (Manual) Platelet Estimate Large Platelets Plt Morphology Comment RBC Morphology PT 16.4 H INR 1.3 H VBG pH VBG pCO2 VBG pO2 VBG HCO3 VBG O2 Saturation VBG Base Excess Anion Gap Estim Creat Clear Calc Estimated GFR Random Glucose Lactic Acid Calcium Magnesium Total Bilirubin Direct Bilirubin AST ALT Alkaline Phosphatase Ammonia 21 Total Creatine Kinase Total Protein Albumin Lipase TSH Urine Color Yellow Urine Appearance Clear Urine pH 5.0 Ur Specific [place] 1.015 Urine Protein 30 (1+) H Urine Glucose (UA) Negative Urine Ketones Trace Urine Blood Negative Urine Nitrite Negative Ur Leukocyte Esterase Negative COVID-19 ([facility]) COVID-19 Clin Com Imaging Radiologist's Impressions: Impressions Chest X-Ray 05/24/23 15:20 IMPRESSION: 1. Patient is rotated. 2. Chronic interstitial lung markings. 3. Right single lumen chest port terminating in the proximal to mid SVC. Assessment and Plan (1) Atrial fibrillation with rapid ventricular response: Status: Acute (2) Acute confusion: Status: Acute Plan Pt is a 78-year-old male with a PMH significant for?prostate cancer with bone metastasis s/p prostatectomy and who has failed multiple lines of chemotherapy, CAD, paroxysmal AFib on Eliquis, CKD 2, HTN, HLD, and [id number] diabetes type 2 who presents to the ED with?altered mental status and elevated heart rate. Pt will be admitted to the hospital for treatment and further evaluation of altered mental status in setting of possible CVA, AFib with RVR, and NSTEMI. Acute encephalopathy Patient having acute AMS since at least this morning, last known well time last evening before bed Unclear etiology: Likely CVA: CT of head with age-indeterminate infarcts Ammonia WNL, UA negative for UTI Will get MRI of the brain/head Neurology consult Patient to remain NPO pending swallow and speech evaluation Afib with RVR EKG showed atrial fibrillation with RVR of 153 Patient asymptomatic: Denies chest pain/pressure, palpitations Patient given diltiazem IV push, then started on diltiazem drip in ED Continue diltiazem drip Cardiology consult Continue metoprolol, Eliquis Will get echocardiogram Monitor on telemetry NSTEMI Troponin 5058.7, EKG with ST non specific depression in V2, V3, V4, V5 Pt asymptomatic: Denies chest pain/pressure, palpitations Cardiology consulted, recommended continuing anticoagulation with Eliquis, no need for heparin drip Will get echocardiogram Trend troponins Monitor on telemetry Lactic acidosis, resolved Lactic acid 3.1 at time of presentation with repeat WNL at 1.2 Patient given IVF in ED Likely secondary to liver disease in the setting of metastatic cancer, not sepsis Metastatic prostate cancer S/P prostatectomy, metastasis to bones Patient recently started chemotherapy on Saturday, followed by Dr. Rosado Continue fentanyl patch for pain management HLD Hold statin d/t elevated LFTs DNR/DNI Attending:?Dr. Morris DVT Prophylaxis: On Eliquis, though given one dose of Lovenox since did not take Eliquis today Pt will require a hospitalization of at least two nights for treatment and further evaluation of altered mental status in setting of possible CVA, AFib with RVR, and NSTEMI. Time Spent With Patient Time: Total time managing care of this patient today ____ minutes. Quality Stroke Does the patient have a stroke diagnosis?: No VTE Prior VTE?: No VTE Risk Level:: Medical - moderate - high VTE Device Contraindication: Treatment Not Indicated VTE Drug Contraindication: N/A - Med Ordered
--- NOTE | 2023-05-24 19:35 | PC.NURSE ---
pt is a difficult draw. repeat labs are delayed bc of difficult draw. two techs are working on repeat lactic
--- NOTE | 2023-05-24 19:59 | PHA.MEDREC ---
Pharmacy Consult ? Medication Reconciliation Called PT spouse and confirmed medications . Fentanyl patch is due on 05/24/23 @ 21:00 . Pharmacy has completed the medication reconciliation.
[2023-05-24 20:14] LABS: ~Lactic Acid-LAB USE ONLY 1.2 mmol/L (0.5-2.0)
--- NOTE | 2023-05-24 20:59 | PC.NURSE ---
Nurse to nurse report given to nurse Bowling in [facility]. Pt being transferred to room 450 and is aware of plan of care.
[2023-05-24 21:34] LABS: Bacteria Urine 4+ (None Seen); Hyaline Casts Urine 0-2 /LPF (0-2); RBC Urine 0-2 /HPF (0-2); Squamous Epithelial Cell Urine 0-2 /HPF (0-2); WBC Urine 0-5 /HPF (0-5)
[2023-05-24] MEDS: Morphine Sulfate 2 MG/ML CARTRIDGE IVPUSH (21:35)
[2023-05-24] MEDS: 0.9 % Sodium Chloride Flush 3 ML SYRINGE IVFLUSH (21:36)
[2023-05-25] VITALS (12 sets, daily range): BP systolic 105–127; BP diastolic 58–85; PULSE 93–130; RESP 16–20; TEMP 36.3–37.6; O2SAT 96–99
[2023-05-25] MEDS: fentaNYL 50 MCG PATCH.TD72 TRANSDERMA (00:12)
[2023-05-25] MEDS: Enoxaparin Sodium 40 MG/0.4 ML SYRINGE SUBCUT (00:12)
[2023-05-25] MEDS: Morphine Sulfate 4 MG/ML CARTRIDGE IVPUSH (01:58)
[2023-05-25] MEDS: dilTIAZem HCL 125 MG in 0.9 % Sodium Chloride 100 ML 10 MG IVCONT (05:23)
[2023-05-25 07:13] LABS: Glucose, Whole Blood 133 mg/dL (60-115)
[2023-05-25 07:24] LABS: Hematocrit 26.4 % (42.0-52.0); Hemoglobin 8.3 g/dl (14.0-18.0); Mean Corpuscular HGB Conc 31.4 g/dl (31.0-36.0); Mean Corpuscular Hemoglobin 29.1 pg (27.0-33.0); Mean Corpuscular Volume 92.6 fL (80.0-98.0); Mean Platelet Volume 11.2 fL (9.4-12.4); Red Blood Count 2.85 X10*6/uL (4.60-5.80); Red Cell Distribution Width 18.2 % (11.0-16.0); White Blood Count 3.2 X10*3/uL (4.8-10.8)
[2023-05-25 07:31] LABS: Platelet Count 68 X10*3/uL (160-400)
[2023-05-25 07:56] LABS: Anion Gap 14 (12-20); Blood Urea Nitrogen 16 mg/dL (9-16); Calcium 8.6 mg/dL (8.4-10.2); Carbon Dioxide 19 mmol/L (22-29); Chloride 116 mmol/L (96-108); Estimated Glomerular Filt Rate > 60; Glucose Random 136 mg/dL (60-115); Sodium 145 mmol/L (135-145)
--- NOTE | 2023-05-25 09:00 | P.PNIM_ITS ---
Subjective Subjective Date of Service: 05/25/23 Interval History: weak Physical Exam Vital Signs: Vital Signs: Last Vital Signs Temp 98.7 F 05/25/23 07:07 Pulse 113 H 05/25/23 07:07 Resp 20 05/25/23 07:07 BP 123/60 05/25/23 07:07 Pulse Ox 96 05/25/23 07:07 O2 Del Method Room Air 05/25/23 07:07 BMI result Body Mass Index 22.1 lethargic, ill appearing, frail, diffuse decreased strength Objective Data Active Medications Acetaminophen (Acetaminophen 325 Mg Tablet) 650 mg PO Q6H PRN PRN Reason: Pain, Mild (Pain Scale 1-3) Acetaminophen (Acetaminophen Supp 650 Mg Supp.Rect) 650 mg IN Q6H PRN PRN Reason: Pain, Mild (Pain Scale 1-3) Apixaban (Apixaban 5 Mg Tablet) 5 mg PO BID [facility] Dextrose (Dextrose 50 % 25 Gm/50 Ml Syringe) 25 gm IVPUSH Q15M PRN; Protocol PRN Reason: per Hypoglycemia Standing Ord. Fentanyl (Fentanyl 50 Mcg Patch.Td72) 50 mcg TRANSDERMA Q3D [facility] Last Admin: 05/25/23 00:12 Dose: 50 mcg Documented By: RUDDY Glucose (Glucose Gel 15 Gm Gel..Gram.) 15 gm PO Q15M PRN; Protocol PRN Reason: per Hypoglycemia Standing Ord. Insulin Human Lispro (Insulin Lispro 100 Unit/Ml 3 Ml Vial) 0 unit SUBCUT QIDA [facility]; Protocol Last Admin: 05/25/23 07:40 Dose: Not Given Documented By: [place] Non-Admin Reason: No Insulin Coverage Melatonin (Melatonin 3 Mg Tablet) 6 mg PO BEDTIME PRN PRN Reason: Insomnia Metoprolol Tartrate (Metoprolol Tartrate 50 Mg Tablet) 50 mg PO DAILY [facility]; Protocol Metoprolol Tartrate (Metoprolol Tartrate 5 Mg/5 Ml Vial) 5 mg IVPUSH Q6H PRN PRN Reason: hr>100 Morphine Sulfate (Morphine Sulfate 4 Mg/Ml Cartridge) 4 mg IVPUSH Q4H PRN; Protocol PRN Reason: Pain, Severe (Pain Scale 7-10) Last Admin: 05/25/23 01:58 Dose: 4 mg Documented By: RUDDY Ondansetron HCl (Ondansetron Hcl 4 Mg/2 Ml Vial) 4 mg IVPUSH Q8H PRN PRN Reason: Nausea and Vomiting Sitagliptin Phosphate (Sitagliptin Phosphate 25 Mg Tablet) 25 mg PO DAILY [facility] Sodium Chloride (0.9 % Sodium Chloride Flush 3 Ml Syringe) 3 ml IVFLUSH QSHIFT [facility] Last Admin: 05/24/23 21:36 Dose: 3 ml Documented By: RUDDY Labs 05/25/23 06:56 05/25/23 06:56 Labs: Laboratory Results - last 24 hr 05/24/23 05/24/23 05/24/23 15:54 15:54 15:54 MCV MCH MCHC RDW Plt Count MPV Immature Gran % (Auto) Neut % (Auto) Lymph % (Auto) [place] % (Auto) Eos % (Auto) Baso % (Auto) Lymph # (Auto) [place] # (Auto) Eos # (Auto) Baso # (Auto) Abs Immat Gran (auto) Absolute Neuts (auto) Absolute Nucleated RBC Nucleated RBC % (auto) Neutrophils % (Manual) Band Neutrophils % Lymphocytes % (Manual) Monocytes % (Manual) Eosinophils % (Manual) Abs Neuts (Manual) Lymphocytes # (Manual) Monocytes # (Manual) Eosinophils # (Manual) Platelet Estimate Large Platelets Plt Morphology Comment RBC Morphology PT INR VBG pH VBG pCO2 VBG pO2 VBG HCO3 VBG O2 Saturation VBG Base Excess Anion Gap Estim Creat Clear Calc Estimated GFR POC Glucose Random Glucose Lactic Acid 3.1 H* Lactic Acid F/U @ 2Hr Calcium Magnesium Total Bilirubin Direct Bilirubin AST ALT Alkaline Phosphatase Ammonia Total Creatine Kinase Total Protein Albumin Lipase TSH 1.43 Urine Color Urine Appearance Urine pH Ur Specific [place] Urine Protein Urine Glucose (UA) Urine Ketones Urine Blood Urine Nitrite Ur Leukocyte Esterase Urine RBC Urine WBC Ur Squamous Epith Cells Urine Bacteria Hyaline Casts COVID-19 ([facility]) Negative COVID-19 Clin Com See Note Blood Type Antibody Screen Crossmatch 05/24/23 05/24/23 05/24/23 15:55 15:56 16:04 MCV 97.1 MCH 30.4 MCHC 31.3 RDW 17.8 H Plt Count 62 L D MPV 11.2 Immature Gran % (Auto) Cancelled Neut % (Auto) Cancelled Lymph % (Auto) Cancelled [place] % (Auto) Cancelled Eos % (Auto) Cancelled Baso % (Auto) Cancelled Lymph # (Auto) Cancelled [place] # (Auto) Cancelled Eos # (Auto) Cancelled Baso # (Auto) Cancelled Abs Immat Gran (auto) Cancelled Absolute Neuts (auto) Cancelled Absolute Nucleated RBC 0.000 Nucleated RBC % (auto) 0.0 Neutrophils % (Manual) 70 Band Neutrophils % 2 L Lymphocytes % (Manual) 22 Monocytes % (Manual) 4 Eosinophils % (Manual) 2 Abs Neuts (Manual) 4.1 Lymphocytes # (Manual) 1.3 Monocytes # (Manual) 0.2 Eosinophils # (Manual) 0.1 Platelet Estimate DECREASED Large Platelets PRESENT Plt Morphology Comment NOTED RBC Morphology NORMAL PT INR VBG pH 7.41 VBG pCO2 27 VBG pO2 45 VBG HCO3 17 L VBG O2 Saturation 76.0 VBG Base Excess -6.0 Anion Gap 17 Estim Creat Clear Calc 84.6 Estimated GFR > 60 POC Glucose Random Glucose 177 H Lactic Acid Lactic Acid F/U @ 2Hr Calcium 8.9 D Magnesium 2.0 Total Bilirubin 0.9 Direct Bilirubin 0.4 AST 32 ALT 8 Alkaline Phosphatase 228 H Ammonia Total Creatine Kinase 149 Total Protein 5.2 L Albumin 2.9 L Lipase 26 TSH Urine Color Urine Appearance Urine pH Ur Specific [place] Urine Protein Urine Glucose (UA) Urine Ketones Urine Blood Urine Nitrite Ur Leukocyte Esterase Urine RBC Urine WBC Ur Squamous Epith Cells Urine Bacteria Hyaline Casts COVID-19 ([facility]) COVID-19 Clin Com Blood Type Antibody Screen Crossmatch 05/24/23 05/24/23 05/24/23 16:58 16:58 18:23 MCV MCH MCHC RDW Plt Count MPV Immature Gran % (Auto) Neut % (Auto) Lymph % (Auto) [place] % (Auto) Eos % (Auto) Baso % (Auto) Lymph # (Auto) [place] # (Auto) Eos # (Auto) Baso # (Auto) Abs Immat Gran (auto) Absolute Neuts (auto) Absolute Nucleated RBC Nucleated RBC % (auto) Neutrophils % (Manual) Band Neutrophils % Lymphocytes % (Manual) Monocytes % (Manual) Eosinophils % (Manual) Abs Neuts (Manual) Lymphocytes # (Manual) Monocytes # (Manual) Eosinophils # (Manual) Platelet Estimate Large Platelets Plt Morphology Comment RBC Morphology PT 16.4 H INR 1.3 H VBG pH VBG pCO2 VBG pO2 VBG HCO3 VBG O2 Saturation VBG Base Excess Anion Gap Estim Creat Clear Calc Estimated GFR POC Glucose Random Glucose Lactic Acid Lactic Acid F/U @ 2Hr Calcium Magnesium Total Bilirubin Direct Bilirubin AST ALT Alkaline Phosphatase Ammonia 21 Total Creatine Kinase Total Protein Albumin Lipase TSH Urine Color Yellow Urine Appearance Clear Urine pH 5.0 Ur Specific [place] 1.015 Urine Protein 30 (1+) H Urine Glucose (UA) Negative Urine Ketones Trace Urine Blood Negative Urine Nitrite Negative Ur Leukocyte Esterase Negative Urine RBC 0-2 Urine WBC 0-5 Ur Squamous Epith Cells 0-2 Urine Bacteria 4+ Hyaline Casts 0-2 COVID-19 ([facility]) COVID-19 Clin Com Blood Type Antibody Screen Crossmatch 05/24/23 05/24/23 05/25/23 19:46 19:46 06:56 MCV 92.6 MCH 29.1 MCHC 31.4 RDW 18.2 H Plt Count 68 L MPV 11.2 Immature Gran % (Auto) Cancelled Neut % (Auto) Cancelled Lymph % (Auto) Cancelled [place] % (Auto) Cancelled Eos % (Auto) Cancelled Baso % (Auto) Cancelled Lymph # (Auto) Cancelled [place] # (Auto) Cancelled Eos # (Auto) Cancelled Baso # (Auto) Cancelled Abs Immat Gran (auto) Cancelled Absolute Neuts (auto) Cancelled Absolute Nucleated RBC 0.000 Nucleated RBC % (auto) 0.0 Neutrophils % (Manual) Band Neutrophils % Lymphocytes % (Manual) Monocytes % (Manual) Eosinophils % (Manual) Abs Neuts (Manual) Lymphocytes # (Manual) Monocytes # (Manual) Eosinophils # (Manual) Platelet Estimate Large Platelets Plt Morphology Comment RBC Morphology PT INR VBG pH VBG pCO2 VBG pO2 VBG HCO3 VBG O2 Saturation VBG Base Excess Anion Gap Estim Creat Clear Calc Estimated GFR POC Glucose Random Glucose Lactic Acid Lactic Acid F/U @ 2Hr 1.2 Calcium Magnesium Total Bilirubin Direct Bilirubin AST ALT Alkaline Phosphatase Ammonia Total Creatine Kinase Total Protein Albumin Lipase TSH Urine Color Urine Appearance Urine pH Ur Specific [place] Urine Protein Urine Glucose (UA) Urine Ketones Urine Blood Urine Nitrite Ur Leukocyte Esterase Urine RBC Urine WBC Ur Squamous Epith Cells Urine Bacteria Hyaline Casts COVID-19 ([facility]) COVID-19 Clin Com Blood Type A Positive Antibody Screen NEGATIVE Crossmatch See Detail 05/25/23 05/25/23 06:56 07:06 MCV MCH MCHC RDW Plt Count MPV Immature Gran % (Auto) Neut % (Auto) Lymph % (Auto) [place] % (Auto) Eos % (Auto) Baso % (Auto) Lymph # (Auto) [place] # (Auto) Eos # (Auto) Baso # (Auto) Abs Immat Gran (auto) Absolute Neuts (auto) Absolute Nucleated RBC Nucleated RBC % (auto) Neutrophils % (Manual) Band Neutrophils % Lymphocytes % (Manual) Monocytes % (Manual) Eosinophils % (Manual) Abs Neuts (Manual) Lymphocytes # (Manual) Monocytes # (Manual) Eosinophils # (Manual) Platelet Estimate Large Platelets Plt Morphology Comment RBC Morphology PT INR VBG pH VBG pCO2 VBG pO2 VBG HCO3 VBG O2 Saturation VBG Base Excess Anion Gap 14 Estim Creat Clear Calc 87.0 Estimated GFR > 60 POC Glucose 133 H Random Glucose 136 H Lactic Acid Lactic Acid F/U @ 2Hr Calcium 8.6 Magnesium Total Bilirubin Direct Bilirubin AST ALT Alkaline Phosphatase Ammonia Total Creatine Kinase Total Protein Albumin Lipase TSH Urine Color Urine Appearance Urine pH Ur Specific [place] Urine Protein Urine Glucose (UA) Urine Ketones Urine Blood Urine Nitrite Ur Leukocyte Esterase Urine RBC Urine WBC Ur Squamous Epith Cells Urine Bacteria Hyaline Casts COVID-19 ([facility]) COVID-19 Clin Com Blood Type Antibody Screen Crossmatch Assessment and Plan (1) Acute confusion: Status: Acute Plan 78M PMH metastatic prostate cancer, CAD, paroxysmal afib, CKD II, htn, hld, dm, presented with ams, found to have nstemi, possible cva, afib with rvr acute metabolic encephalopathy cva age undetermined follow up mri, neuro eval paroxysmal afib with rvr lopressor, eliquis nstemi eliquis, echo, cardio metastatic prostate cancer follows with dr andrea dvt prophylaxis - on eliquis dnr/dni grave prognosis reason for continued hospitalization: ongoing work up for acute mi, possible cva Time Spent With Patient Time: Total time managing care of this patient today ____ minutes. Quality Stroke Does the patient have a stroke diagnosis?: No VTE Prior VTE?: No VTE Risk Level:: Medical - moderate - high VTE Device Contraindication: Treatment Not Indicated VTE Drug Contraindication: N/A - Med Ordered
[2023-05-25 09:11] LABS: Band Neutrophils Percent 5 % (3-5); Eosinophils Absolute Manual 0.1 X10*3/uL (0.0-0.4); Eosinophils Percent Manual 2 % (0-4); Large Platelet PRESENT; Lymphocytes Absolute Manual 0.4 X10*3/uL (1.2-4.9); Lymphocytes Percent Manual 14 % (20-40); Neutrophils Absolute Manual 2.7 X10*3/uL (2.0-8.3); Neutrophils Percent Manual 79 % (45-73); Platelet Estimate DECREASED (NORMAL); Platelet Morphology Comment NOTED
[2023-05-25 09:12] LABS: WBC Morphology Comment DYSMORPHIC
[2023-05-25 09:13] LABS: RBC Morphology NOTED
[2023-05-25 09:14] LABS: Burr Cells 3+ (>5) /OIF
[2023-05-25 09:18] LABS: Hypochromasia 1+ (5-14) /OIF
[2023-05-25 09:19] LABS: Macrocytosis 1+ (5-14) /OIF
--- NOTE | 2023-05-25 09:46 | P.CNNE_ITS ---
History of Present Illness Data of Consult Service Date: 05/25/23 Primary Care Provider: Unknown Physician HPI Reason for consult: Stroke ?78-year-old male with a PMH significant for?prostate cancer with bone metastas is s/p prostatectomy and who has failed multiple lines of chemotherapy, CAD, paroxysmal AFib on Eliquis, CKD 2, HTN, HLD, and [id number] diabetes type 2 who presents to the ED with?altered mental status and elevated heart rate. When I talked to him, he was not able to provide any meaningful history and was not sure what was going on. There was no evidence of any recent seizure. Review of Systems Review of Systems: Could not be done well for him [facility] Past Medical History Medical History Bacteremia Chronic kidney insufficiency Diabetes Elevated cholesterol Elevated PSA Metastatic cancer Multifactorial gait disorder Myocardial infarction Peripheral neuropathy Prostate cancer Prostate cancer metastatic to bone Type 2 diabetes mellitus Urgency incontinence Family History Family History Daughter Breast cancer Surgical History Surgical History History of cystoscopy History of prostatectomy Hx of heart artery stent Social History Social History Household Members: Spouse Housing: House Do you presently have visiting nurse or other home services: No Alcohol intake: never Patient Tobacco Use Status: Former Tobacco user Quit Date: 20 yrs ago Use of substances other than those prescribed or required for medical reasons: No Currently Displaying Signs/Symptoms of Drug Intoxication Withdrawal: No Have you been hit, kicked, punched, or otherwise hurt by someone within the past year? If so, by whom?: No Do you feel safe in your current relationship?: Yes Is there a partner from a previous relationship who is making you feel unsafe now?: No Are you made to feel afraid or neglected: No Advance Directives: No Advance Directives Information Provided: No Do you have thoughts of harming others: None Do you have a plan to hurt others: No Plan Recently lost weight without trying: Yes How much weight loss: 2-13 pounds Eating poorly because of decreased appetite: Yes Nutrition screen score: 4 service: No Current occupational status: retired Meds Allergies Allergy/AdvReac Type Severity Reaction Status Date / Time bee pollen [BEE STINGS] Allergy Severe ANAPHYLAXIS Verified 05/17/23 08:04 leuprolide [From Lupron] AdvReac Unknown REACTION Verified 05/17/23 08:04 TO BRAND NAME LUPRON, OTHER BRANDS [place] bee stings Allergy Unknown anaphylaxis Uncoded 05/14/23 11:10 Active Medications: Current Medications Acetaminophen (Acetaminophen 325 Mg Tablet) 650 mg PO Q6H PRN PRN Reason: Pain, Mild (Pain Scale 1-3) Acetaminophen (Acetaminophen Supp 650 Mg Supp.Rect) 650 mg [place] Q6H PRN PRN Reason: Pain, Mild (Pain Scale 1-3) Apixaban (Apixaban 5 Mg Tablet) 5 mg PO BID [facility] Dextrose (Dextrose 50 % 25 Gm/50 Ml Syringe) 25 gm IVPUSH Q15M PRN; Protocol PRN Reason: per Hypoglycemia Standing Ord. Fentanyl (Fentanyl 50 Mcg Patch.Td72) 50 mcg TRANSDERMA Q3D [facility] Last Admin: 05/25/23 00:12 Dose: 50 mcg Glucose (Glucose Gel 15 Gm Gel..Gram.) 15 gm PO Q15M PRN; Protocol PRN Reason: per Hypoglycemia Standing Ord. Insulin Human Lispro (Insulin Lispro 100 Unit/Ml 3 Ml Vial) 0 unit SUBCUT QIDACHS [facility]; Protocol Last Admin: 05/25/23 07:40 Dose: Not Given Melatonin (Melatonin 3 Mg Tablet) 6 mg PO BEDTIME PRN PRN Reason: Insomnia Metoprolol Tartrate (Metoprolol Tartrate 50 Mg Tablet) 50 mg PO DAILY [facility]; Protocol Metoprolol Tartrate (Metoprolol Tartrate 5 Mg/5 Ml Vial) 5 mg IVPUSH Q6H PRN PRN Reason: hr>100 Morphine Sulfate (Morphine Sulfate 4 Mg/Ml Cartridge) 4 mg IVPUSH Q4H PRN; Protocol PRN Reason: Pain, Severe (Pain Scale 7-10) Last Admin: 05/25/23 01:58 Dose: 4 mg Ondansetron HCl (Ondansetron Hcl 4 Mg/2 Ml Vial) 4 mg IVPUSH Q8H PRN PRN Reason: Nausea and Vomiting Sitagliptin Phosphate (Sitagliptin Phosphate 25 Mg Tablet) 25 mg PO DAILY [facility] Sodium Chloride (0.9 % Sodium Chloride Flush 3 Ml Syringe) 3 ml IVFLUSH QSHIFT [facility] Last Admin: 05/24/23 21:36 Dose: 3 ml Home Medications Medication Instructions Recorded Confirmed Last Taken Type apixaban 5 mg tablet 5 mg PO BID 10/07/20 05/24/23 Unknown History rosuvastatin 40 mg tablet 40 mg PO DAILY 10/07/20 05/24/23 Unknown History sitagliptin phosphate 25 mg tablet 25 mg PO DAILY 10/07/20 05/24/23 Unknown History () metformin 850 mg tablet 850 mg PO DAILY 03/03/23 05/24/23 Unknown History fentanyl 50 mcg/hr transdermal 1 patch topical Q3D 05/10/23 05/24/23 Unknown History patch metoprolol tartrate 50 mg tablet 50 mg PO DAILY 05/24/23 05/24/23 Unknown History Physical Exam Vital Signs: Vital Signs: Last Vital Signs Temp 98.7 F 05/25/23 07:07 Pulse 113 H 05/25/23 07:07 Resp 20 05/25/23 07:07 BP 123/60 05/25/23 07:07 Pulse Ox 96 05/25/23 07:07 O2 Del Method Room Air 05/25/23 07:07 BMI result Body Mass Index 22.1 Neuro: Other: He slightly drowsy but able to open eyes make an eye contact and follow some commands. He was ignoring left-sided. There is seems to be left hemianopsia and new moderate left hemiparesis. Eyes are somewhat deviated to right. He is able to follow simple commands per spontaneity and fluency of speech seems okay. He is able to repeat Results Labs 05/25/23 06:56 05/25/23 06:56 Labs: Short CBC 05/24/23 05/25/23 Range/Units 15:56 06:56 WBC 5.7 3.2 L (4.8-10.8) X10*3/uL Hgb 7.3 L 8.3 L (14.0-18.0) g/dl Hct 23.3 L 26.4 L (42.0-52.0) % Plt Count 62 L D 68 L (160-400) X10*3/uL BMP 05/24/23 05/25/23 15:55 06:56 Sodium 142 145 Potassium 4.2 4.0 Chloride 114 H 116 H Carbon Dioxide 15 L 19 L BUN 20 H 16 Creatinine 0.80 0.74 Calcium 8.9 D 8.6 Cardiac Enzymes 05/24/23 Range/Units 15:55 Total Creatine Kinase 149 (38-174) U/L Liver Function 05/24/23 Range/Units 15:55 Total Bilirubin 0.9 (0.0-1.0) mg/dL Direct Bilirubin 0.4 (0.0-0.5) mg/dL AST 32 (5-37) U/L ALT 8 (0-40) U/L Alkaline Phosphatase 228 H (39-117) U/L Albumin 2.9 L (3.5-5.0) g/dL Urine 05/24/23 Range/Units 18:23 Urine Color Yellow Urine Appearance Clear Urine pH 5.0 (5.0-9.0) Ur Specific [place] 1.015 (1.005-1.025) Urine Protein 30 (1+) H (Neg-Trace) mg/dL Urine Glucose (UA) Negative (Negative) mg/dL Head CT revealed a right frontal hypodensity probably a subacute infarct. Assessment and Plan (1) Left hemiparesis: Status: Acute 78 years old man with atrial fibrillation a new onset of left hemiparesis in left hemianopsia with head CT revealing possible right frontal subacute infarct. His deficit is larger than the lesion seen on CT scan. I recommend an MRI of brain at least without contrast to rule review the nature of this lesion. Otherwise, as far as stroke prophylaxis is concerned, anticoagulation for now can continue. Avoid hypotension. Pay attention to appropriate hydration to avoid further complications or metabolic complications. PT OT and speech and swallowing evaluations are recommended. Time Spent With Patient Time: Total time managing care of this patient today ____ minutes. Procedures Date of Service Date of Service: 05/25/23
--- NOTE | 2023-05-25 11:19 | P.CONCA_ITS ---
History of Present Illness History of Present Illness Date of Service: 05/25/23 Requesting physician: Loc Durbin Chief complaint: AMS, Afib, elevated trop Narrative: 78-year-old gentleman presenting with confusion, AFib with RVR and elevated troponin. He is denying any chest discomfort shortness of breath. He is saying he is thirsty. Labs and imaging reviewed. He has significantly elevated troponin levels. He also had AFib with RVR and has been receiving Cardizem at this stage. He has been chronically anemic. EKG has shown AFib with RVR. He is waiting for a speech evaluation so he could be started on or medications. He is supposed to be on metoprolol 50 mg daily. [facility] Past Medical History Medical History Bacteremia Chronic kidney insufficiency Diabetes Elevated cholesterol Elevated PSA Metastatic cancer Multifactorial gait disorder Myocardial infarction Peripheral neuropathy Prostate cancer Prostate cancer metastatic to bone Type 2 diabetes mellitus Urgency incontinence Family History Family History Daughter Breast cancer Surgical History Surgical History History of cystoscopy History of prostatectomy Hx of heart artery stent Social History Social History Household Members: Spouse Housing: House Do you presently have visiting nurse or other home services: No Alcohol intake: never Patient Tobacco Use Status: Former Tobacco user Quit Date: 20 yrs ago Use of substances other than those prescribed or required for medical reasons: No Currently Displaying Signs/Symptoms of Drug Intoxication Withdrawal: No Have you been hit, kicked, punched, or otherwise hurt by someone within the past year? If so, by whom?: No Do you feel safe in your current relationship?: Yes Is there a partner from a previous relationship who is making you feel unsafe now?: No Are you made to feel afraid or neglected: No Advance Directives: No Advance Directives Information Provided: No Do you have thoughts of harming others: None Do you have a plan to hurt others: No Plan Recently lost weight without trying: Yes How much weight loss: 2-13 pounds Eating poorly because of decreased appetite: Yes Nutrition screen score: 4 service: No Current occupational status: retired [employer] Allergies Allergy/AdvReac Type Severity Reaction Status Date / Time bee pollen [BEE STINGS] Allergy Severe ANAPHYLAXIS Verified 05/17/23 08:04 leuprolide [From Lupron] AdvReac Unknown REACTION Verified 05/17/23 08:04 TO BRAND NAME LUPRON, OTHER BRANDS OK bee stings Allergy Unknown anaphylaxis Uncoded 05/14/23 11:10 Active Medications: Current Medications Acetaminophen (Acetaminophen 325 Mg Tablet) 650 mg PO Q6H PRN PRN Reason: Pain, Mild (Pain Scale 1-3) Acetaminophen (Acetaminophen Supp 650 Mg Supp.Rect) 650 mg TN Q6H PRN PRN Reason: Pain, Mild (Pain Scale 1-3) Apixaban (Apixaban 5 Mg Tablet) 5 mg PO BID [facility] Last Admin: 05/25/23 10:01 Dose: Not Given Dextrose (Dextrose 50 % 25 Gm/50 Ml Syringe) 25 gm IVPUSH Q15M PRN; Protocol PRN Reason: per Hypoglycemia Standing Ord. Fentanyl (Fentanyl 50 Mcg Patch.Td72) 50 mcg TRANSDERMA Q3D [facility] Last Admin: 05/25/23 00:12 Dose: 50 mcg Glucose (Glucose Gel 15 Gm Gel..Gram.) 15 gm PO Q15M PRN; Protocol PRN Reason: per Hypoglycemia Standing Ord. Insulin Human Lispro (Insulin Lispro 100 Unit/Ml 3 Ml Vial) 0 unit SUBCUT QIDACHS [facility]; Protocol Last Admin: 05/25/23 07:40 Dose: Not Given Melatonin (Melatonin 3 Mg Tablet) 6 mg PO BEDTIME PRN PRN Reason: Insomnia Metoprolol Tartrate (Metoprolol Tartrate 50 Mg Tablet) 50 mg PO DAILY [facility]; Protocol Last Admin: 05/25/23 10:01 Dose: Not Given Metoprolol Tartrate (Metoprolol Tartrate 5 Mg/5 Ml Vial) 5 mg IVPUSH Q6H PRN PRN Reason: hr>100 Morphine Sulfate (Morphine Sulfate 4 Mg/Ml Cartridge) 4 mg IVPUSH Q4H PRN; Protocol PRN Reason: Pain, Severe (Pain Scale 7-10) Last Admin: 05/25/23 01:58 Dose: 4 mg Ondansetron HCl (Ondansetron Hcl 4 Mg/2 Ml Vial) 4 mg IVPUSH Q8H PRN PRN Reason: Nausea and Vomiting Sitagliptin Phosphate (Sitagliptin Phosphate 25 Mg Tablet) 25 mg PO DAILY [facility] Last Admin: 05/25/23 10:02 Dose: Not Given Sodium Chloride (0.9 % Sodium Chloride Flush 3 Ml Syringe) 3 ml IVFLUSH QSHIFT [facility] Last Admin: 05/25/23 10:01 Dose: Not Given Home Medications Medication Instructions Recorded Confirmed Last Taken Type apixaban 5 mg tablet 5 mg PO BID 10/07/20 05/24/23 Unknown History rosuvastatin 40 mg tablet 40 mg PO DAILY 10/07/20 05/24/23 Unknown History sitagliptin phosphate 25 mg tablet 25 mg PO DAILY 10/07/20 05/24/23 Unknown History (Januvia) metformin 850 mg tablet 850 mg PO DAILY 03/03/23 05/24/23 Unknown History fentanyl 50 mcg/hr transdermal 1 patch topical Q3D 05/10/23 05/24/23 Unknown History patch metoprolol tartrate 50 mg tablet 50 mg PO DAILY 05/24/23 05/24/23 Unknown History Physical Exam Vital Signs: Vital Signs: Last Vital Signs Temp 98.1 F 05/25/23 11:02 Pulse 127 H 05/25/23 11:02 Resp 20 05/25/23 11:02 BP 127/70 05/25/23 11:02 Pulse Ox 97 05/25/23 11:02 O2 Del Method Room Air 05/25/23 11:02 BMI result Body Mass Index 22.1 GENERAL APPEARANCE: Frail. NECK: no carotid bruit, no jugular venous distention. SKIN: no suspicious lesions, warm and dry. HEART: no murmurs, irregular rate and rhythm. LUNGS: clear to auscultation bilaterally. ABDOMEN: soft, nontender. EXTREMITIES: no edema. PERIPHERAL PULSES: equal. Objective Labs and Meds 05/25/23 06:56 05/25/23 06:56 Lab results: Laboratory Results - last 24 hr 05/24/23 05/24/23 05/24/23 15:54 15:54 15:54 WBC RBC Hgb Hct MCV MCH MCHC RDW Plt Count MPV Immature Gran % (Auto) Neut % (Auto) Lymph % (Auto) [place] % (Auto) Eos % (Auto) Baso % (Auto) Lymph # (Auto) [place] # (Auto) Eos # (Auto) Baso # (Auto) Abs Immat Gran (auto) Absolute Neuts (auto) Absolute Nucleated RBC Nucleated RBC % (auto) Neutrophils % (Manual) Band Neutrophils % Lymphocytes % (Manual) Monocytes % (Manual) Eosinophils % (Manual) Abs Neuts (Manual) Lymphocytes # (Manual) Monocytes # (Manual) Eosinophils # (Manual) WBC Morphology Comment Platelet Estimate Large Platelets Plt Morphology Comment RBC Morphology Hypochromasia Macrocytosis Declan Cells PT INR VBG pH VBG pCO2 VBG pO2 VBG HCO3 VBG O2 Saturation VBG Base Excess Sodium Potassium Chloride Carbon Dioxide Anion Gap BUN Creatinine Estim Creat Clear Calc Estimated GFR POC Glucose Random Glucose Lactic Acid 3.1 H* Lactic Acid F/U @ 2Hr Calcium Magnesium Total Bilirubin Direct Bilirubin AST ALT Alkaline Phosphatase Ammonia Total Creatine Kinase Troponin I High Sens 5058.7 H* Total Protein Albumin Lipase TSH 1.43 Urine Color Urine Appearance Urine pH Ur Specific Wayne Urine Protein Urine Glucose (UA) Urine Ketones Urine Blood Urine Nitrite Ur Leukocyte Esterase Urine RBC Urine WBC Ur Squamous Epith Cells Urine Bacteria Hyaline Casts COVID-19 (HAO) COVID-19 Clin Com Blood Type Antibody Screen Crossmatch 05/24/23 05/24/23 05/24/23 15:54 15:55 15:56 WBC 5.7 RBC 2.40 L Hgb 7.3 L Hct 23.3 L MCV 97.1 MCH 30.4 MCHC 31.3 RDW 17.8 H Plt Count 62 L D MPV 11.2 Immature Gran % (Auto) Cancelled Neut % (Auto) Cancelled Lymph % (Auto) Cancelled [place] % (Auto) Cancelled Eos % (Auto) Cancelled Baso % (Auto) Cancelled Lymph # (Auto) Cancelled [place] # (Auto) Cancelled Eos # (Auto) Cancelled Baso # (Auto) Cancelled Abs Immat Gran (auto) Cancelled Absolute Neuts (auto) Cancelled Absolute Nucleated RBC 0.000 Nucleated RBC % (auto) 0.0 Neutrophils % (Manual) 70 Band Neutrophils % 2 L Lymphocytes % (Manual) 22 Monocytes % (Manual) 4 Eosinophils % (Manual) 2 Abs Neuts (Manual) 4.1 Lymphocytes # (Manual) 1.3 Monocytes # (Manual) 0.2 Eosinophils # (Manual) 0.1 WBC Morphology Comment Platelet Estimate DECREASED Large Platelets PRESENT Plt Morphology Comment NOTED RBC Morphology NORMAL Hypochromasia Macrocytosis Declan Cells PT INR VBG pH VBG pCO2 VBG pO2 VBG HCO3 VBG O2 Saturation VBG Base Excess Sodium 142 Potassium 4.2 Chloride 114 H Carbon Dioxide 15 L Anion Gap 17 BUN 20 H Creatinine 0.80 Estim Creat Clear Calc 84.6 Estimated GFR > 60 POC Glucose Random Glucose 177 H Lactic Acid Lactic Acid F/U @ 2Hr Calcium 8.9 D Magnesium 2.0 Total Bilirubin 0.9 Direct Bilirubin 0.4 AST 32 ALT 8 Alkaline Phosphatase 228 H Ammonia Total Creatine Kinase 149 Troponin I High Sens Total Protein 5.2 L Albumin 2.9 L Lipase 26 TSH Urine Color Urine Appearance Urine pH Ur Specific Wayne Urine Protein Urine Glucose (UA) Urine Ketones Urine Blood Urine Nitrite Ur Leukocyte Esterase Urine RBC Urine WBC Ur Squamous Epith Cells Urine Bacteria Hyaline Casts COVID-19 (HAO) Negative COVID-19 Clin Com See Note Blood Type Antibody Screen Crossmatch 05/24/23 05/24/23 05/24/23 16:04 16:58 16:58 WBC RBC Hgb Hct MCV MCH MCHC RDW Plt Count MPV Immature Gran % (Auto) Neut % (Auto) Lymph % (Auto) [place] % (Auto) Eos % (Auto) Baso % (Auto) Lymph # (Auto) [place] # (Auto) Eos # (Auto) Baso # (Auto) Abs Immat Gran (auto) Absolute Neuts (auto) Absolute Nucleated RBC Nucleated RBC % (auto) Neutrophils % (Manual) Band Neutrophils % Lymphocytes % (Manual) Monocytes % (Manual) Eosinophils % (Manual) Abs Neuts (Manual) Lymphocytes # (Manual) Monocytes # (Manual) Eosinophils # (Manual) WBC Morphology Comment Platelet Estimate Large Platelets Plt Morphology Comment RBC Morphology Hypochromasia Macrocytosis Declan Cells PT 16.4 H INR 1.3 H VBG pH 7.41 VBG pCO2 27 VBG pO2 45 VBG HCO3 17 L VBG O2 Saturation 76.0 VBG Base Excess -6.0 Sodium Potassium Chloride Carbon Dioxide Anion Gap BUN Creatinine Estim Creat Clear Calc Estimated GFR POC Glucose Random Glucose Lactic Acid Lactic Acid F/U @ 2Hr Calcium Magnesium Total Bilirubin Direct Bilirubin AST ALT Alkaline Phosphatase Ammonia 21 Total Creatine Kinase Troponin I High Sens Total Protein Albumin Lipase TSH Urine Color Urine Appearance Urine pH Ur Specific Wayne Urine Protein Urine Glucose (UA) Urine Ketones Urine Blood Urine Nitrite Ur Leukocyte Esterase Urine RBC Urine WBC Ur Squamous Epith Cells Urine Bacteria Hyaline Casts COVID-19 (HAO) COVID-19 Clin Com Blood Type Antibody Screen Crossmatch 05/24/23 05/24/23 05/24/23 18:23 19:46 19:46 WBC RBC Hgb Hct MCV MCH MCHC RDW Plt Count MPV Immature Gran % (Auto) Neut % (Auto) Lymph % (Auto) [place] % (Auto) Eos % (Auto) Baso % (Auto) Lymph # (Auto) [place] # (Auto) Eos # (Auto) Baso # (Auto) Abs Immat Gran (auto) Absolute Neuts (auto) Absolute Nucleated RBC Nucleated RBC % (auto) Neutrophils % (Manual) Band Neutrophils % Lymphocytes % (Manual) Monocytes % (Manual) Eosinophils % (Manual) Abs Neuts (Manual) Lymphocytes # (Manual) Monocytes # (Manual) Eosinophils # (Manual) WBC Morphology Comment Platelet Estimate Large Platelets Plt Morphology Comment RBC Morphology Hypochromasia Macrocytosis Declan Cells PT INR VBG pH VBG pCO2 VBG pO2 VBG HCO3 VBG O2 Saturation VBG Base Excess Sodium Potassium Chloride Carbon Dioxide Anion Gap BUN Creatinine Estim Creat Clear Calc Estimated GFR POC Glucose Random Glucose Lactic Acid Lactic Acid F/U @ 2Hr 1.2 Calcium Magnesium Total Bilirubin Direct Bilirubin AST ALT Alkaline Phosphatase Ammonia Total Creatine Kinase Troponin I High Sens Total Protein Albumin Lipase TSH Urine Color Yellow Urine Appearance Clear Urine pH 5.0 Ur Specific [place] 1.015 Urine Protein 30 (1+) H Urine Glucose (UA) Negative Urine Ketones Trace Urine Blood Negative Urine Nitrite Negative Ur Leukocyte Esterase Negative Urine RBC 0-2 Urine WBC 0-5 Ur Squamous Epith Cells 0-2 Urine Bacteria 4+ Hyaline Casts 0-2 COVID-19 ([facility]O) COVID-19 Clin Com Blood Type A Positive Antibody Screen NEGATIVE Crossmatch See Detail 05/25/23 05/25/23 05/25/23 06:56 06:56 06:56 WBC 3.2 L RBC 2.85 L Hgb 8.3 L Hct 26.4 L MCV 92.6 MCH 29.1 MCHC 31.4 RDW 18.2 H Plt Count 68 L MPV 11.2 Immature Gran % (Auto) Cancelled Neut % (Auto) Cancelled Lymph % (Auto) Cancelled [place] % (Auto) Cancelled Eos % (Auto) Cancelled Baso % (Auto) Cancelled Lymph # (Auto) Cancelled [place] # (Auto) Cancelled Eos # (Auto) Cancelled Baso # (Auto) Cancelled Abs Immat Gran (auto) Cancelled Absolute Neuts (auto) Cancelled Absolute Nucleated RBC 0.000 Nucleated RBC % (auto) 0.0 Neutrophils % (Manual) 79 H Band Neutrophils % 5 Lymphocytes % (Manual) 14 L Monocytes % (Manual) Eosinophils % (Manual) 2 Abs Neuts (Manual) 2.7 Lymphocytes # (Manual) 0.4 L Monocytes # (Manual) Eosinophils # (Manual) 0.1 WBC Morphology Comment DYSMORPHIC Platelet Estimate DECREASED Large Platelets PRESENT Plt Morphology Comment NOTED RBC Morphology NOTED Hypochromasia 1+ (5-14) Macrocytosis 1+ (5-14) Edclan Cells 3+ (>5) PT INR VBG pH VBG pCO2 VBG pO2 VBG HCO3 VBG O2 Saturation VBG Base Excess Sodium 145 Potassium 4.0 Chloride 116 H Carbon Dioxide 19 L Anion Gap 14 BUN 16 Creatinine 0.74 Estim Creat Clear Calc 87.0 Estimated GFR > 60 POC Glucose Random Glucose 136 H Lactic Acid Lactic Acid F/U @ 2Hr Calcium 8.6 Magnesium Total Bilirubin Direct Bilirubin AST ALT Alkaline Phosphatase Ammonia Total Creatine Kinase Troponin I High Sens 7025.1 H* Total Protein Albumin Lipase TSH Urine Color Urine Appearance Urine pH Ur Specific [place] Urine Protein Urine Glucose (UA) Urine Ketones Urine Blood Urine Nitrite Ur Leukocyte Esterase Urine RBC Urine WBC Ur Squamous Epith Cells Urine Bacteria Hyaline Casts COVID-19 (HAO) COVID-19 Clin Com Blood Type Antibody Screen Crossmatch 05/25/23 07:06 WBC RBC Hgb Hct MCV MCH MCHC RDW Plt Count MPV Immature Gran % (Auto) Neut % (Auto) Lymph % (Auto) [place] % (Auto) Eos % (Auto) Baso % (Auto) Lymph # (Auto) [place] # (Auto) Eos # (Auto) Baso # (Auto) Abs Immat Gran (auto) Absolute Neuts (auto) Absolute Nucleated RBC Nucleated RBC % (auto) Neutrophils % (Manual) Band Neutrophils % Lymphocytes % (Manual) Monocytes % (Manual) Eosinophils % (Manual) Abs Neuts (Manual) Lymphocytes # (Manual) Monocytes # (Manual) Eosinophils # (Manual) WBC Morphology Comment Platelet Estimate Large Platelets Plt Morphology Comment RBC Morphology Hypochromasia Macrocytosis Declan Cells PT INR VBG pH VBG pCO2 VBG pO2 VBG HCO3 VBG O2 Saturation VBG Base Excess Sodium Potassium Chloride Carbon Dioxide Anion Gap BUN Creatinine Estim Creat Clear Calc Estimated GFR POC Glucose 133 H Random Glucose Lactic Acid Lactic Acid F/U @ 2Hr Calcium Magnesium Total Bilirubin Direct Bilirubin AST ALT Alkaline Phosphatase Ammonia Total Creatine Kinase Troponin I High Sens Total Protein Albumin Lipase TSH Urine Color Urine Appearance Urine pH Ur Specific [place] Urine Protein Urine Glucose (UA) Urine Ketones Urine Blood Urine Nitrite Ur Leukocyte Esterase Urine RBC Urine WBC Ur Squamous Epith Cells Urine Bacteria Hyaline Casts COVID-19 (HAO) COVID-19 Clin Com Blood Type Antibody Screen Crossmatch Imaging Radiologist's impression: Impressions Chest X-Ray 05/24/23 15:20 IMPRESSION: 1. Patient is rotated. 2. Chronic interstitial lung markings. 3. Right single lumen chest port terminating in the proximal to mid SVC. Head CT 05/24/23 20:26 IMPRESSION: Focal areas of loss of burks to white matter differentiation in the high right frontal lobe at the vertex and in the right occipital lobe representing age-indeterminate infarcts. An MRI of the brain could be considered in follow-up for further evaluation. Moderate chronic white matter microangiopathy and moderate diffuse brain parenchymal volume loss. Imaging findings reported to Dr. Morris at 8:50 PM on 05/24/2023. Assessment and Plan (1) Atrial fibrillation with rapid ventricular response: Status: Acute (2) NSTEMI (non-ST elevated myocardial infarction): Status: Acute Plan 78-year-old gentleman presenting for change in mental status. He is noticed to be in AFib with RVR and had elevated troponin levels. High sensitive troponin levels were 5058 and 7025. He is unable to take anything orally and is receiving IV medications at this point. He has been anemic but looking at his blood workup all cell lines are low. He is denying any chest discomfort shortness of breath. I think elevated troponin is related to AFib with RVR and anemia. If possible transfuse him 1 unit of blood. He is on anticoagulation for atrial fibrillation. Once able to take orally he should be on metoprolol succinate 50 mg daily, not metoprolol tartrate which is short-acting. If heart rates are difficult to control then can try diltiazem 120 mg extended release. Continue anticoagulation. I think he should not be changed to heparin because the likely etiology is a type 2 injury due to AFib with RVR as well as anemia. Thank you for allowing me to participate in the care of your patient. Please feel free to contact me if you have any questions. Time Spent With Patient Time: Total time managing care of this patient today ____ minutes. Procedures Date of Service Date of Service: 05/25/23
[2023-05-25 11:22] LABS: Glucose, Whole Blood 145 mg/dL (60-115)
[2023-05-25] MEDS: Metoprolol Tartrate 50 MG TABLET PO (11:38)
[2023-05-25] MEDS: Apixaban 5 MG TABLET PO ×2 (11:38→20:25)
[2023-05-25] MEDS: SITagliptin Phosphate 25 MG TABLET PO (11:38)
--- NOTE | 2023-05-25 11:42 | MHC.SL.SWA ---
Risk of Aspiration Due to: Neurological Condition Reduced Cognition Dysphasia Diet Status: UPGRADE Liquid Consistency and Strategies for Safe Swallow: Liquid Intake Recommendation: Thin Liquid Intake Strategies: Small Sips Solid Food Consistency: Dietary Recommendations: Grnd/Mech Altered (NDD2) Oral Medication Intake: Crushed with Puree Please contact the pharmacy regarding appropriate crushable or liquid drug formulations that are available whenever modified delivery is recommended. Compensatory Strategies and Precautions to be Taken for Safe Swallow: Sitting Upright (90 deg) Double Swallow Small Bites and Sips Alternate Liquids/Solids Rate of Ingestion Change Avoid Specific Foods Supervision While Eating and Drinking for Safe Swallow: Total Supervision (1:1) Foods to Avoid: Avoid sticky, hard, and tough to chew foods Swallowing Recommended Treatments: Compens. Strategy Educat. Recommendation for Speech: Inpatient Speech Therapy Comment: Recommend UPGRADE to GROUND/MECH ALTERED solids (NDD2), THIN liquids, and pills CRUSHED (whole if needed) in PUREE. Total supervision recommended d/t left neglect to provide assistance as needed (i.e. move items/utensils further to right side), to provide cueing, and to monitor for toleration of diet. Recommended cueing: take small sips and additional swallow following liquids. Spoke w/ RN and FARM CREW LEADER on floor. Sent Sunol Message to RN, RD, and MD. Patient's whiteboard updated. ANGULAR DEVELOPER to re-evaluate and upgrade diet if/when warranted. Front Of House Manager Clinican/Clinical Fellow: No Supervisory Statement: I have reviewed and agree with the student/clinical fellow's documentation: No Speech Language Pathologist: My Allen M.A., [facility]-ANGULAR DEVELOPER
[2023-05-25] MEDS: 0.9 % Sodium Chloride Flush 3 ML SYRINGE IVFLUSH ×2 (13:14→20:27)
[2023-05-25] MEDS: Heparin Sodium,Porcine Flush 50 UNITS/5 ML SYRINGE IVFLUSH (13:14)
--- NOTE | 2023-05-25 13:20 | MHC.CM.PN ---
PT OFF UNIT, CM MET WITH PTS WHO WAS WAITING IN ROOM PT LIVES AT HOME WITH HIS WHO ASSISTS HIM PRN HE HAS BEEN USING A CANE BUT HAVING DIFFICULTY WITH THAT PER PT HAS NO SERVICES IN THE HOME PT IS ACTIVE WITH [facility] FOR PRIMARY CARE HE ALSO SEES [facility] IMM DELIVERED PTS DID NOT WANT TO MAKE ANY DC PLANS UNTIL TEST RESULTS WERE RECEIVED AND PT WAS PRESENT DCP: STR VS HOME WITH [facility] TBD
[2023-05-25 15:40] LABS: Glucose, Whole Blood 200 mg/dL (60-115)
[2023-05-25] MEDS: Insulin Lispro 100 UNIT/ML 3 ML VIAL SUBCUT ×2 (16:50→20:25)
[2023-05-25] MEDS: Acetaminophen 325 MG TABLET 650 MG PO (17:20)
[2023-05-25 19:51] LABS: Glucose, Whole Blood 153 mg/dL (60-115)
[2023-05-25] MEDS: dilTIAZem HCL 50 MG/10 ML VIAL 15 MG IVPUSH (22:57)
[2023-05-26] MEDS: Metoprolol Tartrate 5 MG/5 ML VIAL IVPUSH ×2 (00:04→03:35)
--- NOTE | 2023-05-26 02:35 | PC.NURSE ---
Addendum entered by Mallory Martinez RN 05/26/23 03:39: Md prescribed IV fluids normal saline @ 500 ml/hr for one hour incase increased HR was due to dehydration. Despite fluids pts HR began to sustain in the 140s. The Md said that metoprolol IV push could be given again. Metoprolol was given and at 3:41 HR is in the 110s Original Note: pts heart rate has been sustaining around 130 bpm. at 23:00 Iv pulse Cardizem was given per MD orders. HR did not lower. At 0000 IV push metoprolol was given. PT HR lowered to 110s-120s. At around 2:30 pt HR went back to high 130s. was made aware and said it is fine as long as pt is not sustaining 140s
[2023-05-26] MEDS: 0.9 % Sodium Chloride 500 ML IV (02:56)
[2023-05-26] MEDS: Acetaminophen 325 MG TABLET 650 MG PO ×3 (03:01→14:51)
[2023-05-26 03:15] VITALS: BP 116/61; PULSE 130; RESP 20; TEMP 36.6; O2SAT 95
[2023-05-26 06:22] LABS: Anion Gap 13 (12-20); Blood Urea Nitrogen 15 mg/dL (9-16); Carbon Dioxide 17 mmol/L (22-29); Chloride 117 mmol/L (96-108); Creatinine Clr Calc Pharmacy 77.5; Estimated Glomerular Filt Rate > 60; Glucose Fasting 142 mg/dL (60-99); Potassium 3.7 mmol/L (3.3-5.1); Sodium 143 mmol/L (135-145)
[2023-05-26 06:40] LABS: Hematocrit 25.5 % (42.0-52.0); Hemoglobin 8.3 g/dl (14.0-18.0); Mean Corpuscular HGB Conc 32.5 g/dl (31.0-36.0); Mean Corpuscular Hemoglobin 29.5 pg (27.0-33.0); Mean Corpuscular Volume 90.7 fL (80.0-98.0); Mean Platelet Volume 11.1 fL (9.4-12.4); Red Blood Count 2.81 X10*6/uL (4.60-5.80); White Blood Count 2.7 X10*3/uL (4.8-10.8)
[2023-05-26 06:41] LABS: NRBC Pct Auto 1.1 /100WBC (0.0-0.2); Platelet Count 71 X10*3/uL (160-400)
[2023-05-26 07:24] VITALS: BP 119/63; PULSE 135; RESP 20; TEMP 36.6; O2SAT 98
[2023-05-26 07:42] LABS: Glucose, Whole Blood 137 mg/dL (60-115)
[2023-05-26] MEDS: SITagliptin Phosphate 25 MG TABLET PO (08:05)
[2023-05-26] MEDS: Digoxin 0.5 MG/2 ML AMPUL 0.25 MG IVPUSH ×2 (08:05→14:50)
[2023-05-26] MEDS: Apixaban 5 MG TABLET PO (08:05)
[2023-05-26] MEDS: Metoprolol Succinate ER 100 MG TAB.ER.24H PO (08:05)
[2023-05-26] MEDS: 0.9 % Sodium Chloride Flush 3 ML SYRINGE IVFLUSH ×3 (08:05→23:38)
--- NOTE | 2023-05-26 08:48 | HO.PM.IMPN ---
Subjective Subjective Date of Service: 05/26/23 Interval History: weak Physical Exam Vital Signs: Vital Signs: Last Vital Signs Temp 97.8 F 05/26/23 07:24 Pulse 135 H 05/26/23 07:24 Resp 20 05/26/23 07:24 BP 119/63 05/26/23 07:24 Pulse Ox 98 05/26/23 07:24 O2 Del Method Room Air 05/26/23 07:24 BMI result Body Mass Index 22.1 GENERAL APPEARANCE: Frail. NECK: no carotid bruit, no jugular venous distention. SKIN: no suspicious lesions, warm and dry. HEART: no murmurs, irregular rate and rhythm. LUNGS: clear to auscultation bilaterally. ABDOMEN: soft, nontender. EXTREMITIES: no edema. PERIPHERAL PULSES: equal. Objective Data Active Medications Acetaminophen (Acetaminophen 325 Mg Tablet) 650 mg PO Q6H PRN PRN Reason: Pain, Mild (Pain Scale 1-3) Last Admin: 05/26/23 08:10 Dose: 650 mg Documented By: FRANCE Comments: approved early dose Acetaminophen (Acetaminophen Supp 650 Mg Supp.Rect) 650 mg [place] Q6H PRN PRN Reason: Pain, Mild (Pain Scale 1-3) Apixaban (Apixaban 5 Mg Tablet) 5 mg PO BID [facility] Last Admin: 05/26/23 08:05 Dose: 5 mg Documented By: FRANCE Dextrose (Dextrose 50 % 25 Gm/50 Ml Syringe) 25 gm IVPUSH Q15M PRN; Protocol PRN Reason: per Hypoglycemia Standing Ord. Digoxin (Digoxin 0.5 Mg/2 Ml Ampul) 0.25 mg IVPUSH Q6H ALEJANDRA Stop: 05/26/23 13:16 Last Admin: 05/26/23 08:05 Dose: 0.25 mg Documented By: FRANCE Fentanyl (Fentanyl 50 Mcg Patch.Td72) 50 mcg TRANSDERMA Q3D [facility] Last Admin: 05/25/23 00:12 Dose: 50 mcg Documented By: RUDDY Glucose (Glucose Gel 15 Gm Gel..Gram.) 15 gm PO Q15M PRN; Protocol PRN Reason: per Hypoglycemia Standing Ord. Insulin Human Lispro (Insulin Lispro 100 Unit/Ml 3 Ml Vial) 0 unit SUBCUT QIDACHS [facility]; Protocol Last Admin: 05/26/23 07:54 Dose: Not Given Documented By: FRANCE Non-Admin Reason: No Insulin Coverage Melatonin (Melatonin 3 Mg Tablet) 6 mg PO BEDTIME PRN PRN Reason: Insomnia Metoprolol Succinate (Metoprolol Succinate Er 100 Mg Tab.Er.24h) 100 mg PO DAILY [facility]; Protocol Last Admin: 05/26/23 08:05 Dose: 100 mg Documented By: FRANCE Metoprolol Tartrate (Metoprolol Tartrate 5 Mg/5 Ml Vial) 5 mg IVPUSH Q6H PRN PRN Reason: hr>100 Last Admin: 05/26/23 03:35 Dose: 5 mg Documented By: RUDDY Morphine Sulfate (Morphine Sulfate 4 Mg/Ml Cartridge) 4 mg IVPUSH Q4H PRN; Protocol PRN Reason: Pain, Severe (Pain Scale 7-10) Last Admin: 05/25/23 01:58 Dose: 4 mg Documented By: RUDDY Ondansetron HCl (Ondansetron Hcl 4 Mg/2 Ml Vial) 4 mg IVPUSH Q8H PRN PRN Reason: Nausea and Vomiting Sitagliptin Phosphate (Sitagliptin Phosphate 25 Mg Tablet) 25 mg PO DAILY [facility] Last Admin: 05/26/23 08:05 Dose: 25 mg Documented By: FRANCE Sodium Chloride (0.9 % Sodium Chloride Flush 3 Ml Syringe) 3 ml IVFLUSH QSHIFT [facility] Last Admin: 05/26/23 08:05 Dose: 3 ml Documented By: FRANCE Labs 05/26/23 05:36 05/26/23 05:36 Labs: Laboratory Results - last 24 hr 05/25/23 05/25/23 05/25/23 06:56 11:00 15:18 MCV MCH MCHC RDW Plt Count MPV Absolute Nucleated RBC Nucleated RBC % (auto) Neutrophils % (Manual) 79 H Band Neutrophils % 5 Lymphocytes % (Manual) 14 L Eosinophils % (Manual) 2 Abs Neuts (Manual) 2.7 Lymphocytes # (Manual) 0.4 L Eosinophils # (Manual) 0.1 WBC Morphology Comment DYSMORPHIC Platelet Estimate DECREASED Large Platelets PRESENT Plt Morphology Comment NOTED RBC Morphology NOTED Hypochromasia 1+ (5-14) Macrocytosis 1+ (5-14) Lima Cells 3+ (>5) Anion Gap Estim Creat Clear Calc Estimated GFR POC Glucose 145 H 200 H Fasting Glucose Calcium 05/25/23 05/26/23 05/26/23 19:47 05:36 05:36 MCV 90.7 MCH 29.5 MCHC 32.5 RDW 18.0 H Plt Count 71 L MPV 11.1 Absolute Nucleated RBC 0.030 H Nucleated RBC % (auto) 1.1 H Neutrophils % (Manual) Band Neutrophils % Lymphocytes % (Manual) Eosinophils % (Manual) Abs Neuts (Manual) Lymphocytes # (Manual) Eosinophils # (Manual) WBC Morphology Comment Platelet Estimate Large Platelets Plt Morphology Comment RBC Morphology Hypochromasia Macrocytosis Lima Cells Anion Gap 13 Estim Creat Clear Calc 77.5 Estimated GFR > 60 POC Glucose 153 H Fasting Glucose 142 H Calcium 9.0 05/26/23 07:21 MCV MCH MCHC RDW Plt Count MPV Absolute Nucleated RBC Nucleated RBC % (auto) Neutrophils % (Manual) Band Neutrophils % Lymphocytes % (Manual) Eosinophils % (Manual) Abs Neuts (Manual) Lymphocytes # (Manual) Eosinophils # (Manual) WBC Morphology Comment Platelet Estimate Large Platelets Plt Morphology Comment RBC Morphology Hypochromasia Macrocytosis Lima Cells Anion Gap Estim Creat Clear Calc Estimated GFR POC Glucose 137 H Fasting Glucose Calcium Microbiology Microbiology Results: Microbiology 05/24/23 15:56 Blood Culture - Preliminary Blood - Venous No growth after 24 hours. 05/24/23 15:56 Blood Culture - Preliminary Blood - Venous No growth after 24 hours. Assessment and Plan (1) Acute confusion: Status: Acute Plan 78M PMH metastatic prostate cancer, CAD, paroxysmal afib, CKD II, htn, hld, dm, presented with ams, found to have nstemi, possible cva, afib with rvr acute metabolic encephalopathy improving acute multifocal suspect cardioembolic continue eliquis pt/ot paroxysmal afib with rvr lopressor, eliquis dig nstemi eliquis, echo, cardio metastatic prostate cancer follows with dr andrea dvt prophylaxis - on eliquis dnr/dni guarded prognosis reason for continued hospitalization: ongoing work up for acute mi, cva, rapid afib Time Spent With Patient Time: Total time managing care of this patient today ____ minutes. Quality Stroke Does the patient have a stroke diagnosis?: No VTE Prior VTE?: No VTE Risk Level:: Medical - moderate - high VTE Device Contraindication: Treatment Not Indicated VTE Drug Contraindication: N/A - Med Ordered
[2023-05-26 11:10] VITALS: BP 103/59; PULSE 107; RESP 20; TEMP 36.9; O2SAT 98
[2023-05-26 11:21] LABS: Glucose, Whole Blood 131 mg/dL (60-115)
[2023-05-26 16:11] LABS: Glucose, Whole Blood 131 mg/dL (60-115)
[2023-05-26 18:17] VITALS: BP 110/61; PULSE 120; RESP 16; TEMP 36.6; O2SAT 97
[2023-05-26 18:57] VITALS: BP 118/60; PULSE 121; RESP 17; TEMP 36.9; O2SAT 98
[2023-05-26 20:14] LABS: Glucose, Whole Blood 165 mg/dL (60-115)
--- NOTE | 2023-05-26 21:53 | PM.EVENT ---
Event Note Date of Service: 05/26/23 Event Note: Nurse reported marielle hematuria in patient's Scott catheter with blood clots. Will initiate CBI and hold Eliquis. Consulting urology. Close monitor INR and hemoglobin Time Spent With Patient Time: Total time managing care of this patient today ____ minutes.
[2023-05-26] MEDS: Insulin Lispro 100 UNIT/ML 3 ML VIAL SUBCUT (23:38)
[2023-05-27] VITALS (7 sets, daily range): BP systolic 106–121; BP diastolic 59–71; PULSE 118–136; RESP 17–20; TEMP 36.3–37.6; O2SAT 95–99; BMI 22.1
[2023-05-27] MEDS: Metoprolol Tartrate 5 MG/5 ML VIAL IVPUSH (02:16)
[2023-05-27] MEDS: Acetaminophen 325 MG TABLET 650 MG PO (02:22)
[2023-05-27 06:58] LABS: Hemoglobin 8.6 g/dl (14.0-18.0); Mean Corpuscular HGB Conc 31.9 g/dl (31.0-36.0); Mean Corpuscular Hemoglobin 29.2 pg (27.0-33.0); Mean Corpuscular Volume 91.5 fL (80.0-98.0); Mean Platelet Volume 11.8 fL (9.4-12.4); Red Blood Count 2.95 X10*6/uL (4.60-5.80); Red Cell Distribution Width 18.1 % (11.0-16.0); White Blood Count 5.3 X10*3/uL (4.8-10.8)
--- NOTE | 2023-05-27 07:00 | CA_ITS ---
Transthoracic Echocardiogram Patient (Last, First, Middle): Maxim Sena W Gender: Male Date of : 1945 Age: 78 Procedure Date: 05/27/2023 Procedure Type: Transthoracic Echocardiogram Location: [facility] Height: 185.42 cm Weight: 75.75 kg BSA: 1.99 m2 Heart Rate: bpm BP: 112 / 62 mmHg Custom Applicator: Referring MD: Miguel Morris MD Symptoms: afib with rvr ; NSTEMI Study Quality: Fair ECG Rhythm: Atrial Fibrillation Conclusions: - Normal left ventricular cavity size. There is mildly increased left ventricular wall thickness. The left ventricular systolic function is mild to moderately decreased. The visually estimated ejection fraction is between 35-40%. - The apex segment is hypokinetic. - Mildly increased right ventricular cavity size. There is mildly decreased right ventricular systolic function. - The left atrium is severely dilated. - Moderately elevated right atrial pressure. Moderate pulmonary hypertension is present. - There is mild dilatation of the ascending aorta measuring 4.20 cm. Findings Left Ventricle Normal left ventricular cavity size. There is mildly increased left ventricular wall thickness. The left ventricular systolic function is mild to moderately decreased. The visually estimated ejection fraction is between 35-40%. There is evidence of regional wall motion abnormalities. Diastolic function is indeterminate on the basis of available data. Wall Motion Rest Echo Findings The apex segment is hypokinetic. Right Ventricle Mildly increased right ventricular cavity size. There is mildly decreased right ventricular systolic function. Atria The left atrium is severely dilated. Aortic Valve Normal aortic valve structure and function. There is no aortic valve stenosis. There is no aortic valve regurgitation. Mitral Valve The mitral valve appears normal. There is mild mitral valve regurgitation. There is no mitral valve stenosis. Pulmonic Valve The pulmonic valve is likely normal. Tricuspid Valve Normal tricuspid valve structure. There is mild to moderate tricuspid valve regurgitation. The right ventricular systolic pressure is 51 mmHg. Moderately elevated right atrial pressure. Moderate pulmonary hypertension is present. Great Vessels There is mild dilatation of the ascending aorta measuring 4.20 cm. Venous The inferior vena cava is dilated and collapses greater than 50% with inspiration. Pericardium/Pleural There is no evidence of pericardial effusion. Prior Study Comparison No prior study available for comparison. Measurements 2D Linear Measurements IVSd: 1.24 0.6-0.9/0.6-1.0 cm LVIDd: 5.06 3.9-5.3/4.2-5.9 cm LVIDd Index: 2.54 2.4-3.2/2.2-3.1 cm/m2 LVIDs: 3.98 2.0-3.6 cm LVPWd: 1.24 0.7-1.1 cm Ao Root: 3.60 2.1-3.5 cm LA Diam: 4.00 2.7-3.8/3.0-4.0 cm LAIDs Index: 2.01 1.5-2.3 cm/m2 LV Mass: 311.07 67-162/88-224 g LV Mass Index: 156.32 43-95/49-115 g/m2 LVOT Diam: 2.20 3.0+(-)1.3 cm Mitral Valve MV Pk E: 0.82 MV Decel Time: 125.00 E'Lateral: 15.00 E'Medial: 7.72 E/E' Med: 10.60 E/E' Lat: 5.50 PHT: 37.00 MVA PHT: 5.95 Decel Amite: 6.52 Aortic Valve AoV Pk Humberto: 0.98 AoV Mn Humberto: 0.75 AoV VTI: 0.16 AoV Pk Grad: 4.00 Aov Mn Grad: 3.00 FRANCINE Cont.VTI: 2.37 LVOT LVOT Pk Humberto: 0.64 LVOT Mn Humberto: 0.42 LVOT VTI: 0.10 LVOT Pk Grad: 2.00 LVOT Mn Grad: 1.00 LVOT Diam: 2.20 LVOT Area: 3.80 Diastolic Function MV Pk E: 0.82 E'Medial: 7.72 E/E' Med: 10.60 E' Laterial: 15.00 E/E' Lat: 5.50 Tricuspid Valve TR Pk Humberto: 3.29 TR Pk Grad: 43.00 RA Press: 8.00 RVSP: 51.00 Great Vessels Aorta Ao Root-2D: 3.60 2.0-3.7 cm Ao Asc: 4.20 2.1-3.4 cm Ao Arch: 2.40 Pulmonary Valve PV Pk Humberto: 1.02 Peak PV Grad: 4.00 Updated in Other Vendor System with Status of Final Benedict Ellis MD electronically signed on 05/27/2023 8:44:12 PM with status of Final
[2023-05-27 07:12] LABS: NRBC Pct Auto 1.7 /100WBC (0.0-0.2); Platelet Count 81 X10*3/uL (160-400)
[2023-05-27 07:15] LABS: Anion Gap 13 (12-20); Blood Urea Nitrogen 17 mg/dL (9-16); Carbon Dioxide 20 mmol/L (22-29); Chloride 117 mmol/L (96-108); Estimated Glomerular Filt Rate > 60; Glucose Fasting 117 mg/dL (60-99); Potassium 3.5 mmol/L (3.3-5.1); Sodium 146 mmol/L (135-145)
[2023-05-27 07:16] LABS: INTERNATIONAL NORM RATIO 1.5 (0.9-1.1); Prothrombin Time 18.1 SEC (11.1-13.3)
[2023-05-27 07:17] LABS: Glucose, Whole Blood 105 mg/dL (60-115)
--- NOTE | 2023-05-27 08:55 | HO.PM.IMPN ---
Subjective Subjective Date of Service: 05/27/23 Interval History: weak, had hematuria overnight Physical Exam Vital Signs: Vital Signs: Last Vital Signs Temp 98.6 F 05/27/23 07:20 Pulse 136 H 05/27/23 07:20 Resp 17 05/27/23 07:20 BP 109/61 05/27/23 07:20 Pulse Ox 99 05/27/23 07:20 O2 Del Method Room Air 05/27/23 07:20 BMI result Body Mass Index 22.1 GENERAL APPEARANCE: Frail. NECK: no carotid bruit, no jugular venous distention. SKIN: no suspicious lesions, warm and dry. HEART: no murmurs, irregular rate and rhythm. LUNGS: clear to auscultation bilaterally. ABDOMEN: soft, nontender. EXTREMITIES: no edema. PERIPHERAL PULSES: equal. Objective Data Active Medications Acetaminophen (Acetaminophen 325 Mg Tablet) 650 mg PO Q6H PRN PRN Reason: Pain, Mild (Pain Scale 1-3) Last Admin: 05/27/23 02:22 Dose: 650 mg Documented By: RUDDY Acetaminophen (Acetaminophen Supp 650 Mg Supp.Rect) 650 mg [place] Q6H PRN PRN Reason: Pain, Mild (Pain Scale 1-3) Dextrose (Dextrose 50 % 25 Gm/50 Ml Syringe) 25 gm IVPUSH Q15M PRN; Protocol PRN Reason: per Hypoglycemia Standing Ord. Digoxin (Digoxin 0.125 Mg Tablet) 0.125 mg PO Q2D ALEJANDRA Fentanyl (Fentanyl 50 Mcg Patch.Td72) 50 mcg TRANSDERMA Q3D [facility] Last Admin: 05/25/23 00:12 Dose: 50 mcg Documented By: RUDDY Glucose (Glucose Gel 15 Gm Gel..Gram.) 15 gm PO Q15M PRN; Protocol PRN Reason: per Hypoglycemia Standing Ord. Insulin Human Lispro (Insulin Lispro 100 Unit/Ml 3 Ml Vial) 0 unit SUBCUT QIDACHS [facility]; Protocol Last Admin: 05/27/23 07:22 Dose: Not Given Documented By: FRANCE Non-Admin Reason: No Insulin Coverage Melatonin (Melatonin 3 Mg Tablet) 6 mg PO BEDTIME PRN PRN Reason: Insomnia Metoprolol Succinate (Metoprolol Succinate Er 50 Mg Tab.Er.24h) 150 mg PO DAILY [facility]; Protocol Metoprolol Tartrate (Metoprolol Tartrate 5 Mg/5 Ml Vial) 5 mg IVPUSH Q6H PRN PRN Reason: hr>100 Last Admin: 05/27/23 02:16 Dose: 5 mg Documented By: RUDDY Morphine Sulfate (Morphine Sulfate 4 Mg/Ml Cartridge) 4 mg IVPUSH Q4H PRN; Protocol PRN Reason: Pain, Severe (Pain Scale 7-10) Last Admin: 05/25/23 01:58 Dose: 4 mg Documented By: RUDDY Ondansetron HCl (Ondansetron Hcl 4 Mg/2 Ml Vial) 4 mg IVPUSH Q8H PRN PRN Reason: Nausea and Vomiting Sitagliptin Phosphate (Sitagliptin Phosphate 25 Mg Tablet) 25 mg PO DAILY [facility] Last Admin: 05/26/23 08:05 Dose: 25 mg Documented By: FRANCE Sodium Chloride (0.9 % Sodium Chloride Flush 3 Ml Syringe) 3 ml IVFLUSH QSHIFT [facility] Last Admin: 05/26/23 23:38 Dose: 3 ml Documented By: RUDDY Labs 05/27/23 06:24 05/27/23 06:24 Labs: Laboratory Results - last 24 hr 05/26/23 05/26/23 05/26/23 11:09 16:04 20:08 MCV MCH MCHC RDW Plt Count MPV Absolute Nucleated RBC Nucleated RBC % (auto) PT INR Anion Gap Estim Creat Clear Calc Estimated GFR POC Glucose 131 H 131 H 165 H Fasting Glucose Calcium 05/27/23 05/27/23 05/27/23 06:24 06:24 06:24 MCV 91.5 MCH 29.2 MCHC 31.9 RDW 18.1 H Plt Count 81 L MPV 11.8 Absolute Nucleated RBC 0.090 H Nucleated RBC % (auto) 1.7 H PT 18.1 H INR 1.5 H Anion Gap 13 Estim Creat Clear Calc 74.0 Estimated GFR > 60 POC Glucose Fasting Glucose 117 H Calcium 9.0 05/27/23 07:12 MCV MCH MCHC RDW Plt Count MPV Absolute Nucleated RBC Nucleated RBC % (auto) PT INR Anion Gap Estim Creat Clear Calc Estimated GFR POC Glucose 105 Fasting Glucose Calcium Microbiology Microbiology Results: Microbiology 05/24/23 15:56 Blood Culture - Preliminary Blood - Venous No growth after 48 hours. 05/24/23 15:56 Blood Culture - Preliminary Blood - Venous No growth after 48 hours. Assessment and Plan (1) Acute confusion: Status: Acute Plan 78M PMH metastatic prostate cancer, CAD, paroxysmal afib, CKD II, htn, hld, dm, presented with ams, found to have nstemi, possible cva, afib with rvr acute metabolic encephalopathy improving hematuria now cleared eliquis on hold, follow up acute multifocal cva suspect cardioembolic holding eliquis for hematuria paroxysmal afib with rvr still fast, increaseing toprol to 150mg daily, dig loaded, start on 125mcg q2d holding eliquis nstemi echo metastatic prostate cancer follows with dr andrea dvt prophylaxis - mechanical due to hematuria dnr/dni guarded prognosis reason for continued hospitalization: ongoing work up for acute mi, cva, rapid afib Time Spent With Patient Time: Total time managing care of this patient today ____ minutes. Quality Stroke Does the patient have a stroke diagnosis?: No VTE Prior VTE?: No VTE Risk Level:: Medical - moderate - high VTE Device Contraindication: Treatment Not Indicated VTE Drug Contraindication: N/A - Med Ordered
[2023-05-27] MEDS: SITagliptin Phosphate 25 MG TABLET PO (10:32)
[2023-05-27] MEDS: Metoprolol Succinate ER 50 MG TAB.ER.24H 150 MG PO (10:32)
[2023-05-27] MEDS: Digoxin 0.125 MG TABLET PO (10:33)
[2023-05-27] MEDS: 0.9 % Sodium Chloride Flush 3 ML SYRINGE IVFLUSH (10:34)
[2023-05-27 11:22] LABS: Glucose, Whole Blood 125 mg/dL (60-115)
--- NOTE | 2023-05-27 11:41 | PM.UROCN ---
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 Recommend holding Eliquis until Scott catheter removed Review of Systems Constitutional: Constitutional: Reports as per HPI and Reports no additional constitutional complaints Cardiovascular: Cardiovascular: Reports as per HPI and Reports no additional cardiovascular complaints Respiratory: Respiratory: Reports as per HPI and Reports no additional respiratory complaints Gastrointestinal: Gastrointestinal: Reports as per HPI and Reports no additional gastrointestinal complaints Genitourinary: Genitourinary: Reports as per HPI Musculoskeletal: Musculoskeletal: Reports no additional musculoskeletal complaints and Reports as per HPI Neurologic: Reports system reviewed and no additional complaints, except as documented and Reports as per HPI PMFSH Past Medical History Medical History Bacteremia Chronic kidney insufficiency Diabetes Elevated cholesterol Elevated PSA Metastatic cancer Multifactorial gait disorder Myocardial infarction Peripheral neuropathy Prostate cancer Prostate cancer metastatic to bone Type 2 diabetes mellitus Urgency incontinence Family History Family History Daughter Breast cancer Surgical History Surgical History History of cystoscopy History of prostatectomy Hx of heart artery stent Social History Social History Household Members: Spouse Housing: House Do you presently have visiting nurse or other home services: No Alcohol intake: never Patient Tobacco Use Status: Former Tobacco user Quit Date: 20 yrs ago Use of substances other than those prescribed or required for medical reasons: No Currently Displaying Signs/Symptoms of Drug Intoxication Withdrawal: No Have you been hit, kicked, punched, or otherwise hurt by someone within the past year? If so, by whom?: No Do you feel safe in your current relationship?: Yes Is there a partner from a previous relationship who is making you feel unsafe now?: No Are you made to feel afraid or neglected: No Advance Directives: No Advance Directives Information Provided: No Do you have thoughts of harming others: None Do you have a plan to hurt others: No Plan Recently lost weight without trying: Yes How much weight loss: 2-13 pounds Eating poorly because of decreased appetite: Yes Nutrition screen score: 4 service: No Current occupational status: retired Meds Allergies Allergy/AdvReac Type Severity Reaction Status Date / Time bee pollen [BEE STINGS] Allergy Severe ANAPHYLAXIS Verified 05/17/23 08:04 leuprolide [From Lupron] AdvReac Unknown REACTION Verified 05/17/23 08:04 TO BRAND NAME LUPRON, OTHER BRANDS [place] bee stings Allergy Unknown anaphylaxis Uncoded 05/14/23 11:10 Active Medications: Current Medications Acetaminophen (Acetaminophen 325 Mg Tablet) 650 mg PO Q6H PRN PRN Reason: Pain, Mild (Pain Scale 1-3) Last Admin: 05/27/23 02:22 Dose: 650 mg Acetaminophen (Acetaminophen Supp 650 Mg Supp.Rect) 650 mg [place] Q6H PRN PRN Reason: Pain, Mild (Pain Scale 1-3) Dextrose (Dextrose 50 % 25 Gm/50 Ml Syringe) 25 gm IVPUSH Q15M PRN; Protocol PRN Reason: per Hypoglycemia Standing Ord. Digoxin (Digoxin 0.125 Mg Tablet) 0.125 mg PO Q2D [facility] Last Admin: 05/27/23 10:33 Dose: 0.125 mg Fentanyl (Fentanyl 50 Mcg Patch.Td72) 50 mcg TRANSDERMA Q3D [facility] Last Admin: 05/25/23 00:12 Dose: 50 mcg Glucose (Glucose Gel 15 Gm Gel..Gram.) 15 gm PO Q15M PRN; Protocol PRN Reason: per Hypoglycemia Standing Ord. Insulin Human Lispro (Insulin Lispro 100 Unit/Ml 3 Ml Vial) 0 unit SUBCUT QIDACHS [facility]; Protocol Last Admin: 05/27/23 11:24 Dose: Not Given Melatonin (Melatonin 3 Mg Tablet) 6 mg PO BEDTIME PRN PRN Reason: Insomnia Metoprolol Succinate (Metoprolol Succinate Er 50 Mg Tab.Er.24h) 150 mg PO DAILY [facility]; Protocol Last Admin: 05/27/23 10:32 Dose: 150 mg Metoprolol Tartrate (Metoprolol Tartrate 5 Mg/5 Ml Vial) 5 mg IVPUSH Q6H PRN PRN Reason: hr>100 Last Admin: 05/27/23 02:16 Dose: 5 mg Morphine Sulfate (Morphine Sulfate 4 Mg/Ml Cartridge) 4 mg IVPUSH Q4H PRN; Protocol PRN Reason: Pain, Severe (Pain Scale 7-10) Last Admin: 05/25/23 01:58 Dose: 4 mg Ondansetron HCl (Ondansetron Hcl 4 Mg/2 Ml Vial) 4 mg IVPUSH Q8H PRN PRN Reason: Nausea and Vomiting Sitagliptin Phosphate (Sitagliptin Phosphate 25 Mg Tablet) 25 mg PO DAILY [facility] Last Admin: 05/27/23 10:32 Dose: 25 mg Sodium Chloride (0.9 % Sodium Chloride Flush 3 Ml Syringe) 3 ml IVFLUSH QSHIFT [facility] Last Admin: 05/27/23 10:34 Dose: 3 ml Home Medications Medication Instructions Recorded Confirmed Last Taken Type apixaban 5 mg tablet 5 mg PO BID 10/07/20 05/24/23 Unknown History rosuvastatin 40 mg tablet 40 mg PO DAILY 10/07/20 05/24/23 Unknown History sitagliptin phosphate 25 mg tablet 25 mg PO DAILY 10/07/20 05/24/23 Unknown History (Erika) metformin 850 mg tablet 850 mg PO DAILY 03/03/23 05/24/23 Unknown History fentanyl 50 mcg/hr transdermal 1 patch topical Q3D 05/10/23 05/24/23 Unknown History patch metoprolol tartrate 50 mg tablet 50 mg PO DAILY 05/24/23 05/24/23 Unknown History Physical Exam Vital Signs: Vital Signs: Last Vital Signs Temp 99.6 F 05/27/23 11:21 Pulse 118 H 05/27/23 11:21 Resp 18 05/27/23 11:21 BP 106/62 05/27/23 11:21 Pulse Ox 97 05/27/23 11:21 O2 Del Method Room Air 05/27/23 11:21 BMI result Body Mass Index 22.1 Const: General: cooperative, healthy appearing, comfortable and no acute distress Orientation/consciousness: patient oriented x3 HEENT: Face and sinus: Yes normal facial exam Mouth: moist mucous membranes Neck: Neck: Yes normal visual inspection, Yes full ROM and Yes trachea midline Chest: Chest palpation & inspection: normal inspection of the chest Resp: Effort & Inspection: normal respiratory effort, able to speak in complete sentences and no respiratory distress GI: Inspection: Yes normal to inspection Back/Spine/Pelvis: Cervical Spine: normal cervical lordosis Thoracic/Lumbar Spine: thoracic and lumbar spine normal to inspection Skin: General skin exam: no rashes or lesions noted Neuro: General: patient oriented x3, tone normal and moves all extremities Extrem: General: Yes normal to inspection and Yes capillary refill normal Results Labs 05/27/23 06:24 05/27/23 06:24 Labs: Abnormal lab results 05/26/23 05/26/23 05/27/23 Range/Units 16:04 20:08 06:24 RBC 2.95 L (4.60-5.80) X10*6/uL Hgb 8.6 L (14.0-18.0) g/dl Hct 27.0 L (42.0-52.0) % RDW 18.1 H (11.0-16.0) % Plt Count 81 L (160-400) X10*3/uL Absolute Nucleated RBC 0.090 H (0.0-0.012) X10*3/uL Nucleated RBC % (auto) 1.7 H (0.0-0.2) /100WBC PT (11.1-13.3) SEC INR (0.9-1.1) Sodium (135-145) mmol/L Chloride (96-108) mmol/L Carbon Dioxide (22-29) mmol/L BUN (9-16) mg/dL POC Glucose 131 H 165 H (60-115) mg/dL Fasting Glucose (60-99) mg/dL 05/27/23 05/27/23 05/27/23 Range/Units 06:24 06:24 11:15 RBC (4.60-5.80) X10*6/uL Hgb (14.0-18.0) g/dl Hct (42.0-52.0) % RDW (11.0-16.0) % Plt Count (160-400) X10*3/uL Absolute Nucleated RBC (0.0-0.012) X10*3/uL Nucleated RBC % (auto) (0.0-0.2) /100WBC PT 18.1 H (11.1-13.3) SEC INR 1.5 H (0.9-1.1) Sodium 146 H (135-145) mmol/L Chloride 117 H (96-108) mmol/L Carbon Dioxide 20 L (22-29) mmol/L BUN 17 H (9-16) mg/dL POC Glucose 125 H (60-115) mg/dL Fasting Glucose 117 H (60-99) mg/dL Short CBC 05/27/23 Range/Units 06:24 WBC 5.3 (4.8-10.8) X10*3/uL Hgb 8.6 L (14.0-18.0) g/dl Hct 27.0 L (42.0-52.0) % Plt Count 81 L (160-400) X10*3/uL BMP 05/27/23 06:24 Sodium 146 H Potassium 3.5 Chloride 117 H Carbon Dioxide 20 L BUN 17 H Creatinine 0.87 Calcium 9.0 Urine 05/24/23 Range/Units 18:23 Urine Color Yellow Urine Appearance Clear Urine pH 5.0 (5.0-9.0) Ur Specific [place] 1.015 (1.005-1.025) Urine Protein 30 (1+) H (Neg-Trace) mg/dL Urine Glucose (UA) Negative (Negative) mg/dL All other labs normal. Assessment and Plan (1) Gross hematuria: Status: Acute (2) Radiation cystitis: Status: Acute Plan If hematuria becomes a clinical relevant issue would suggest holding Eliquis Time Spent With Patient Time: Total time managing care of this patient today ____ minutes. Procedures Date of Service Date of Service: 05/27/23
--- NOTE | 2023-05-27 14:04 | MHC.CLN ---
NUTRITION CONSULT FOR MALNUTRITION. DIET=NDD2 CONSISTENCY WITH TOTAL SUPERVISION. CURRENTLY WITH POOR PO INTAKE. PRESENT AT VISIT. DID NOT ACCEPT ENSURE AT HOME. LIKES ICE CREAM. WILL ADD THRIVE FORTIFIED ICE CREAM TID TO PROVIDE 810 KCALS, 27 G PROTEIN. PATIENT WITH NON SEVERE MALNUTRITION IN THE CONTEXT OF CHRONIC ILLNESS. FOLLOW FOR INTAKE AND DIET TOLERANCE.
--- NOTE | 2023-05-27 15:15 | MHC.SL.SWA ---
Risk of Aspiration Due to: Neurological Condition Reduced Cognition Dysphasia Diet Status: No change Liquid Consistency and Strategies for Safe Swallow: Liquid Intake Recommendation: Thin Liquid Intake Strategies: Small Sips No Straws Double Swallow Solid Food Consistency: Dietary Recommendations: Grnd/Mech Altered (NDD2) Oral Medication Intake: Crushed with Puree Please contact the pharmacy regarding appropriate crushable or liquid drug formulations that are available whenever modified delivery is recommended. Compensatory Strategies and Precautions to be Taken for Safe Swallow: Sitting Upright (90 deg) Double Swallow No Straw Small Bites and Sips Alternate Liquids/Solids Rate of Ingestion Change Avoid Specific Foods Supervision While Eating and Drinking for Safe Swallow: Total Supervision (1:1) Foods to Avoid: Avoid sticky, hard, and tough to chew foods Swallowing Recommended Treatments: Compens. Strategy Educat. Recommendation for Speech: Inpatient Speech Therapy Comment: Recommend patient continue with GROUND solids, THIN liquids, and pills CRUSHED in PUREE. Full supervision/assist recommended to monitor for toleration of diet, to provide cueing, and to provide assistance as needed. For example, move items/utensils further to right side d/t left neglect. Recommend strategies: -patient to hold cup so initiates sip (w/ support from staff to bear weight of cup) -cue patient to swallow 2x (verbal reminders, tactile cues touching neck) -small sips -no straws. Patient must be alert and engaged for any PO. DO NOT FEED if patient is not engaged or too lethargic. If patient continues to present w/ cough on thin liquids when cues are followed; may consider thickened liquids, and may benefit from MBS (inpatient vs. outpatient) if appropriate to participate. Recommend dietary consultation d/t limited PO intake and risk of dehydration. Regulatory Affairs Coordinator Clinican/Clinical Fellow: No Supervisory Statement: I have reviewed and agree with the student/clinical fellow's documentation: No Speech Language Pathologist: My Allen M.A., CCC-STRUCTURAL ENGINEERING PROJECT MANAGER
[2023-05-27 16:22] LABS: Glucose, Whole Blood 140 mg/dL (60-115)
[2023-05-27] MEDS: Pantoprazole Sodium 40 MG/10 ML VIAL IVPUSH (17:53)
[2023-05-27 20:07] LABS: Glucose, Whole Blood 134 mg/dL (60-115)
[2023-05-28] MEDS: fentaNYL 50 MCG PATCH.TD72 TRANSDERMA (00:28)
[2023-05-28] MEDS: 0.9 % Sodium Chloride Flush 3 ML SYRINGE IVFLUSH (01:28)
[2023-05-28 03:28] VITALS: BP 114/60; PULSE 134; RESP 18; TEMP 36.9; O2SAT 90
[2023-05-28] MEDS: Metoprolol Tartrate 5 MG/5 ML VIAL IVPUSH (03:36)
[2023-05-28] MEDS: dilTIAZem HCL 125 MG in 0.9 % Sodium Chloride 100 ML 10 MG IVCONT (04:24)
--- NOTE | 2023-05-28 04:44 | PM.EVENT ---
Event Note Date of Service: 05/28/23 Event Note: HR sustained 130s most of night Not responding to PRN IV Metoprolol AMS, risky to try PO now Start Cardizem Drip and monitor response Time Spent With Patient Time: Total time managing care of this patient today ____ minutes.
[2023-05-28 05:27] VITALS: O2SAT 92
[2023-05-28 05:56] LABS: ABG Base Excess -7.6 mmol/L; ABG HCO3 14 mmol/L (22-26); ABG pCO2 19 mmHg (32-45); ABG pH 7.47 (7.35-7.45); ABG pO2 57 mmHg (83-108)
[2023-05-28] MEDS: Pantoprazole Sodium 40 MG/10 ML VIAL IVPUSH (06:06)
[2023-05-28 06:23] LABS: ABG Refer to POC result
[2023-05-28 06:31] VITALS: BP 121/67
[2023-05-28 06:31] LABS: Hematocrit 30.3 % (42.0-52.0); Hemoglobin 9.6 g/dl (14.0-18.0); Mean Corpuscular HGB Conc 31.7 g/dl (31.0-36.0); Mean Corpuscular Hemoglobin 29.4 pg (27.0-33.0); Mean Corpuscular Volume 92.7 fL (80.0-98.0); Mean Platelet Volume 10.7 fL (9.4-12.4); Red Blood Count 3.27 X10*6/uL (4.60-5.80); Red Cell Distribution Width 18.6 % (11.0-16.0); White Blood Count 17.5 X10*3/uL (4.8-10.8)
[2023-05-28 06:32] LABS: NRBC Pct Auto 2.6 /100WBC (0.0-0.2); Platelet Count 89 X10*3/uL (160-400)
[2023-05-28 06:46] LABS: Lactic Acid 2.5 mmol/L (0.5-2.0)
[2023-05-28 06:48] LABS: Alanine Aminotransferase 14 U/L (0-40); Albumin Level 2.8 g/dL (3.5-5.0); Alkaline Phosphatase 201 U/L (39-117); Anion Gap 18 (12-20); Aspartate Amino Transferase 74 U/L (5-37); Bilirubin Direct 0.3 mg/dL (0.0-0.5); Bilirubin Total 0.7 mg/dL (0.0-1.0); Blood Urea Nitrogen 21 mg/dL (9-16); Calcium 9.3 mg/dL (8.4-10.2); Carbon Dioxide 16 mmol/L (22-29); Chloride 117 mmol/L (96-108); Creatinine Clr Calc Pharmacy 45.3; Estimated Glomerular Filt Rate 48; Glucose Random 182 mg/dL (60-115); Potassium 4.3 mmol/L (3.3-5.1); Sodium 147 mmol/L (135-145); Total Protein 5.4 g/dL (6.5-8.0)
[2023-05-28 07:11] VITALS: BP 108/56; PULSE 107; RESP 22; TEMP 36.8; O2SAT 87
[2023-05-28 07:12] LABS: Glucose, Whole Blood 193 mg/dL (60-115)
--- NOTE | 2023-05-28 07:26 | PC.NURSE ---
Assumed care of patient on 05/27/2023 at 18:45. Patient was alert and oriented x1 but was confused, vague and speech did not make sense at the begining of shift. Approximately at 01:30 patient was only arousable to pain, MD notified and MD assessed patient with no further orders placed. Approximately at 03:30 patients heart rate is sustaining in the 130's, MD notified and ordered to administer metoprolol 5mg IVpush. Metoprolol had no effect. Cardizem drip was started approximately at 04:00 and was running at 10mg/hr. Patient started to have rapid and shallow respirations with bluish coloring to toes approximately at 04:00. Patient was on RA and o2 was in sustaining in the mid 80s. Patient placed on 2L NC then shortly titrated to 8L NC and o2 was sustaining in the low 90s. MD notified and came to assess patient, ABG and labs were ordered and obtained. CO2 came back at 19, blood pH 7.47. MD notified no further orders placed. Heart rate was still sustaining in the 130s, MD notified and ordered to titrate cardizem drip to 15mg/hr.
[2023-05-28 07:31] VITALS: RESP 30
[2023-05-28] MEDS: Morphine Sulfate 4 MG/ML CARTRIDGE IVPUSH (07:31)
--- NOTE | 2023-05-28 07:39 | P.PNIM_ITS ---
Subjective Subjective Date of Service: 05/28/23 Interval History: obtunded Physical Exam Vital Signs: Vital Signs: Last Vital Signs Temp 98.3 F 05/28/23 07:11 Pulse 107 H 05/28/23 07:11 Resp 30 H 05/28/23 07:31 BP 108/56 L 05/28/23 07:11 Pulse Ox 87 L 05/28/23 07:11 O2 Del Method Nasal Cannula 05/28/23 07:11 O2 Flow Rate 8 05/28/23 07:11 BMI result Body Mass Index 22.1 obtunded, tachypneic, ill appearing Objective Data Active Medications Fentanyl (Fentanyl 50 Mcg Patch.Td72) 50 mcg TRANSDERMA Q3D [facility] Last Admin: 05/28/23 00:28 Dose: 50 mcg Documented By: JANET Morphine Sulfate (Morphine Sulfate 4 Mg/Ml Cartridge) 2 mg IVPUSH Q1H PRN; Protocol PRN Reason: Pain, Severe (Pain Scale 7-10) Sodium Chloride (0.9 % Sodium Chloride Flush 3 Ml Syringe) 3 ml IVFLUSH QSHIFT [facility] Last Admin: 05/28/23 01:28 Dose: 3 ml Documented By: JANET Labs 05/28/23 06:24 05/28/23 06:24 Labs: Laboratory Results - last 24 hr 05/27/23 05/27/23 05/27/23 11:15 16:16 20:03 MCV MCH MCHC RDW Plt Count MPV Absolute Nucleated RBC Nucleated RBC % (auto) O2 Saturation ABG pH at Pt Temp ABG pCO2 at Pt Temp ABG pO2 at Pt Temp ABG HCO3 ABG Base Excess (Actual) Anion Gap Estim Creat Clear Calc Estimated GFR POC Glucose 125 H 140 H 134 H Random Glucose Lactic Acid Calcium Total Bilirubin Direct Bilirubin AST ALT Alkaline Phosphatase Total Protein Albumin 05/28/23 05/28/23 05/28/23 05:51 06:24 06:24 MCV 92.7 MCH 29.4 MCHC 31.7 RDW 18.6 H Plt Count 89 L MPV 10.7 Absolute Nucleated RBC 0.450 H Nucleated RBC % (auto) 2.6 H O2 Saturation 88.0 ABG pH at Pt Temp 7.47 H ABG pCO2 at Pt Temp 19 L* ABG pO2 at Pt Temp 57 L ABG HCO3 14 L ABG Base Excess (Actual) -7.6 Anion Gap 18 Estim Creat Clear Calc 45.3 Estimated GFR 48 POC Glucose Random Glucose 182 H Lactic Acid Calcium 9.3 Total Bilirubin 0.7 Direct Bilirubin 0.3 AST 74 H ALT 14 Alkaline Phosphatase 201 H Total Protein 5.4 L Albumin 2.8 L 05/28/23 05/28/23 06:24 07:03 MCV MCH MCHC RDW Plt Count MPV Absolute Nucleated RBC Nucleated RBC % (auto) O2 Saturation ABG pH at Pt Temp ABG pCO2 at Pt Temp ABG pO2 at Pt Temp ABG HCO3 ABG Base Excess (Actual) Anion Gap Estim Creat Clear Calc Estimated GFR POC Glucose 193 H Random Glucose Lactic Acid 2.5 H* Calcium Total Bilirubin Direct Bilirubin AST ALT Alkaline Phosphatase Total Protein Albumin Assessment and Plan (1) Acute confusion: Status: Acute Plan 78M PMH metastatic prostate cancer, CAD, paroxysmal afib, CKD II, htn, hld, dm, presented with ams, found to have nstemi, possible cva, afib with rvr, patient has declined significantly, after discussion with spouse, plan to transition to [employer] discontinue all disease directed treatements, diagnostics will start morphine prn, continue fentanyl acute metabolic encephalopathy hematuria acute multifocal cva NSTEMI paroxysmal afib with rvr metastatic prostate cancer dnr/dni reason for continued hospitalization:[employer] Time Spent With Patient Time: Total time managing care of this patient today ____ minutes. Quality Stroke Does the patient have a stroke diagnosis?: No VTE Prior VTE?: No VTE Risk Level:: Medical - moderate - high VTE Device Contraindication: Treatment Not Indicated VTE Drug Contraindication: N/A - Med Ordered
[2023-05-28] MEDS: Morphine Sulfate 4 MG/ML CARTRIDGE 2 MG IVPUSH ×2 (07:58→09:25)
[2023-05-28 08:28] LABS: Reflex Lactate? Lactic Acid Added
--- NOTE | 2023-05-28 09:49 | PM.DDS ---
Discharge Sum: Prov Provider Primary care physician: Unknown Physician Consults: 05/24/23 17:16 Consult to Cardiology Stat Consulting Provider: [facility] Reason for consultation: elevated toponin, Afib with RVR 05/24/23 20:50 Consult to Neurology Routine Consulting Provider: [facility] Reason for consultation: CVA 05/26/23 21:52 Consult to Urology Routine Consulting Provider: All Velasquez Reason for consultation: hematuria Discharge Sum: Diag Contributing Factors (1) Acute confusion: Discharge Sum: Summary Date and Time Date of admission: 05/24/23 19:09 Date of : 05/28/23 Summary Details: from initial hpi: 78-year-old male with a PMH significant for prostate cancer with bone metastasis s/p prostatectomy and who has failed multiple lines of chemotherapy, CAD, paroxysmal AFib on Eliquis, CKD 2, HTN, HLD, and [id number] diabetes type 2 who presents to the ED with altered mental status and elevated heart rate. Patient is alert and oriented to self and place and incapable of providing a full or accurate HPI. Patient's only acute complaint is of diffuse ?aching? leg pain. Denies chest pain/pressure, palpitations. No shortness of breath. Denies fever, chills, nausea, vomiting, abdominal pain. Patient's states she found the patient unresponsive and noncommunicative this morning. Patient is normally alert and oriented x4 incapable of taking care of his own medication administration. Patient had chemo poor systolic last week and began chemotherapy earlier this week. His started on a fentanyl patch for pain management and was just started on OxyContin last night on top of the patch. When was unable to wake the patient up she called oncology office who then suggested she bring him in to the emergency department for further evaluation. In the ED patient with elevated temperature of 100.3 degrees, tachycardic up to 146, tachypneic up to 23, with soft BP as low as 101/54. Labs were significant for H&H of 7.3/23.3, chloride 114, bicarb 15, BUN 20, lactic acid 3.1, alk-phos 228, troponin 5058.7, protein 5.2, hypoalbuminemia 2.9. No leukocytosis. Ammonia WNL at 21. UA negative for UTI. CXR showed no acute cardiopulmonary disease, but showed chronic interstitial lung markings. CT of head found focal areas of loss burks to white matter differentiation in the high right frontal lobe at the vertex and in the right occipital lobe representing age-indeterminate infarcts. Also showed moderate chronic white matter microangiopathy and moderate diffuse brain parenchymal volume loss.. EKG demonstrated AFib with RVR of [address]ressions in V2, V3, V4, and V5. Pt was treated with diltiazem IV push, IVF, ceftriaxone, doxycycline, acetaminophen, and started on a diltiazem drip. Cardiology was consulted who advised to continue Eliquis for anticoagulation, no need for heparin drip since elevated troponins likely rate related ischemia as opposed to unstable plaque. Patient will also receive 1 unit of PRBCs. Pt will be admitted to the hospital for treatment further evaluation of altered mental status in setting of possible CVA, AFib with RVR, and NSTEMI. hospital course: Patient was admitted for acute metabolic encephalopathy due to acute multifocal CVA, NSTEMI, complicated by paroxysmal atrial fibrillation with rapid ventricular response and acute hypoxic respiratory failure and hematuria, all in the background setting of metastatic prostate cancer. Initially patient continue on Eliquis, Toprol up titrated, started on digoxin. Patient continued to decline, after discussion with patient's spouse decision made to transition to comfort measures only. Patient on 05/28/2023 at 09:40. Additional Data Attending physician: Loc Durbin MD
== END 2023-05-28 09:40 | disposition expired | DRG 64 ==
LOC: HO.ED 17:11 → HO.EDOVER 19:14 → HO.IMC 19:53
PROVIDERS: Emergency Medicine; Student in an Organized Health Care Education/Training Program; Admitting Provider Student in an Organized Health Care Education/Training Program; Emergency Provider Emergency Medicine; PCP Internal Medicine; Visit Provider Internal Medicine
DX: I63.9 Cerebral infarction, unspecified (principal); G93.41 Metabolic encephalopathy; I21.4 Non-ST elevation (NSTEMI) myocardial infarction; J96.01 Acute respiratory failure with hypoxia; C79.51 Secondary malignant neoplasm of bone; E87.20 Acidosis, unspecified; G81.94 Hemiplegia, unspecified affecting left nondominant side; N30.41 Irradiation cystitis with hematuria; E11.42 Type 2 diabetes mellitus with diabetic polyneuropathy; C61 Malignant neoplasm of prostate; Z66 Do not resuscitate; Z51.5 Encounter for palliative care; I25.10 Atherosclerotic heart disease of native coronary artery without angina pectoris; I48.0 Paroxysmal atrial fibrillation; I12.9 Hypertensive chronic kidney disease with stage 1 through stage 4 chronic kidney disease, or unspecified chronic kidney disease; E78.00 Pure hypercholesterolemia, unspecified; N18.2 Chronic kidney disease, stage 2 (mild); E11.22 Type 2 diabetes mellitus with diabetic chronic kidney disease; D63.1 Anemia in chronic kidney disease; H53.47 Heteronymous bilateral field defects; Z20.822 Contact with and (suspected) exposure to COVID-19; Z90.79 Acquired absence of other genital organ(s); Z87.891 Personal history of nicotine dependence; Z79.01 Long term (current) use of anticoagulants; Z79.84 Long term (current) use of oral hypoglycemic drugs; Z79.899 Other long term (current) drug therapy
CPT/HCPCS: 36415; 70450; 70551; 71045; 80048; 80076; 81001; 82140; 82550; 82803; 82947; 83605; 83690; 83735; 84443; 84484; 85007; 85027; 85610; 86850; 86900; 86901; 86923; 87040; 87635; 92526; 92610; 92950; 93005; 93306; 99285; C1758; J0696; J1160; J1642; J1650; J2270; P9016

== ENCOUNTER 2023-05-24 19:09 | Outpatient (BNV) | payer MEDICARE, SELFPAY | END 2023-05-27 07:00 | PROVIDERS: Admitting Provider Student in an Organized Health Care Education/Training Program; Emergency Provider Emergency Medicine; Visit Provider Internal Medicine Cardiovascular Disease | DX: I34.0 Nonrheumatic mitral (valve) insufficiency (principal); I36.1 Nonrheumatic tricuspid (valve) insufficiency | CPT/HCPCS: 93306 ==

== ENCOUNTER → 2023-05-24 19:09 | Outpatient (BNV) | payer MEDICARE, SELFPAY | PROVIDERS: Admitting Provider Student in an Organized Health Care Education/Training Program; Emergency Provider Emergency Medicine; Visit Provider Student in an Organized Health Care Education/Training Program | DX: R41.0 Disorientation, unspecified (principal); Z51.5 Encounter for palliative care | CPT/HCPCS: 99223; 99233; 99239; 99499 ==

== ENCOUNTER → 2023-05-24 19:09 | Outpatient (BNV) | payer MEDICARE, SELFPAY | PROVIDERS: Admitting Provider Student in an Organized Health Care Education/Training Program; Emergency Provider Emergency Medicine; Visit Provider Internal Medicine Cardiovascular Disease | DX: I48.91 Unspecified atrial fibrillation (principal); I21.4 Non-ST elevation (NSTEMI) myocardial infarction | CPT/HCPCS: 99222 ==

== ENCOUNTER → 2023-05-24 19:09 | Outpatient (BNV) | payer MEDICARE, SELFPAY | PROVIDERS: Admitting Provider Student in an Organized Health Care Education/Training Program; Emergency Provider Emergency Medicine; Visit Provider Urology | DX: R31.0 Gross hematuria (principal); N30.41 Irradiation cystitis with hematuria | CPT/HCPCS: 99222 ==